=== PATIENT | male | born 1960 | race Caucasian/White ===

== ENCOUNTER → 2016-04-02 | Outpatient (REF) | payer MEDICARE ==
[~2016-04-02] MED LIST: BACL-67 PO; CITA20TA4 PO; FERR325T PO; OXYB5TAB PO; SIMV20TA2 PO; TIZA2TA PO; VITA10002 PO; VITA100066 PO; VITA500T88 PO
== END ==
LOC: M LAB REF 16:09
PROVIDERS: ATTEND Surgery
DX: L89.324 Pressure ulcer of left buttock, stage 4 (principal)

== ENCOUNTER → 2017-01-18 | Outpatient (REF) | payer MEDICARE ==
[~2017-01-18] MED LIST changes: -BACL-67 PO; +BACL1TAB9 PO; +FERR1TAB8 PO; -FERR325T PO
== END ==
LOC: M LAB REF 12:24
PROVIDERS: ATTEND Surgery
DX: L89.222 Pressure ulcer of left hip, stage 2 (principal)
CPT/HCPCS: 15271; 88304; Q4131

== ENCOUNTER → 2018-07-21 | Outpatient (REF) | payer MEDICARE ==
[~2018-07-21] MED LIST changes: -CITA20TA4 PO; +CITA20TA6 PO; +D3 H2000 PO; +ECOT81TA5 PO; +MYRB50TA PO
== END ==
LOC: M SMT 13:11
PROVIDERS: ATTEND Urology
DX: Z01.818 Encounter for other preprocedural examination (principal); R33.9 Retention of urine, unspecified

== ENCOUNTER 2018-07-26 07:55 | Day surgery (SDC) | payer MEDICARE ==
[~2018-07-26] VITALS: Ht 177.8 cm; Wt 89.4 kg
[~2018-07-26 07:55] MED LIST changes: +GENTAMICIN 80 MG in APPROPRIATE DILUENT 1 EA IV ONE; +LR 1,000 ML IV ONE; +VANCOMYCIN HCL 1,000 MG, VIAL MATE ADAPTER 1 EACH in D5W 250 ML IV ONE
[2018-07-26] MEDS ORDERED: MIDAZOLAM INJ 2 MG/2 ML VIAL (J2250) As Ordered ONE (08:09)
[2018-07-26] MEDS ORDERED: fentaNYL 100 MCG/2 ML INJECTION (J3010) As Ordered ONE (08:09)
[2018-07-26] MEDS ORDERED: dexameTHASONE 4 MG/ML 1ML VIAL (J1100) As Ordered ONE (08:10)
[2018-07-26] MEDS ORDERED: PROPOFOL 200 MG/20 ML VIAL As Ordered ONE (08:10)
[2018-07-26] MEDS ORDERED: ONDANSETRON 4MG/2ML VIAL (J2405) As Ordered ONE (08:10)
[2018-07-26] MEDS ORDERED: LIDOCAINE 2% INJ 100 MG/5 ML SDV (FOR ANES.) As Ordered ONE (08:10)
[2018-07-26] MEDS ORDERED: BUPIVACAINE HCL 0.25% 30 ML VIAL As Ordered ONE (09:50)
[2018-07-26] MEDS ORDERED: LIDOCAINE 1% SDV INJ 30 ML VIAL As Ordered ONE (09:50)
[2018-07-26] MEDS ORDERED: ACETAMINOPHEN 1000MG 100ML IV BTL (OFIRMEV) (J0131 PER 10MG) As Ordered ONE (11:02)
[2018-07-26] MEDS ORDERED: PERCOCET 5MG/325MG TAB PO PRN ×2 (12:30)
[2018-07-26 13:35] VITALS: BP 152/90
--- NOTE | 2018-07-27 08:05 | RO ---
DATE OF PROCEDURE: 07/26/2018 PREPROCEDURE DIAGNOSIS: Urinary retention. POSTPROCEDURE DIAGNOSIS: Urinary retention. PROCEDURE: Open cystotomy and suprapubic catheter placement, cystoscopy. SURGEON: Dr. Zach Watts. COMPUTER HARDWARE TECHNICIAN: None. ANESTHESIA: General. OPERATIVE INDICATIONS: This is a 58-year-old male with multiple sclerosis and urinary retention due to neurogenic bladder. He is managed with a chronic catheter placement through the urethra and decided that he would like to have a suprapubic catheter placed instead. DESCRIPTION OF PROCEDURE: The patient was brought to the operating room and general anesthesia was induced. Prophylactic antibiotics were infused. He was then placed in the supine position and prepped and draped in the usual sterile fashion. At this point, a flexible cystoscope was inserted through the meatus and advanced towards the bladder. A guidewire was then advanced through the cystoscope and into the bladder. The cystoscope was then removed and then a 16-Sen[place]e unalakleet tipped catheter was advanced over the wire into the bladder. The balloon was then filled with 10 mL of sterile water and then the wire was removed. The catheter was clamped off. At this point an approximately 4 cm suprapubic incision was made. We then dissected down through the subcutaneous tissue using Bovie electrocautery. The rectus fascia was opened using Bovie electrocautery. The bellies of the rectus were then bluntly spread. At this point, the bladder was then filled with approximately 100 mL of sterile saline using the Sommer catheter. A spinal needle was utilized to aspirate the area that appeared to be the bladder and we got clear fluid out indicating that we were, at this point dissected down towards the bladder. At this point, a 3-0 chromic pursestring stitch was placed at the dome of the bladder. The cystotomy was then made in the middle of the stitch and then the 20-[place]e catheter was inserted into the cystotomy. The balloon was filled with 7 mL of sterile water and then the chromic stitch was tied down around the catheter. At this point, we checked for hemostasis and it appeared excellent. We thoroughly irrigated the operative field. I then closed the rectus fascia using interrupted [id number] #1-0 PDS sutures. At this point, I irrigated the operative field again with saline. The subcutaneous tissues were then reapproximated with interrupted #3-0 Vicryl sutures. The skin was then closed with a running #4-0 Monocryl subcuticular stitch. This was done around the catheter. Last, a #3-0 Prolene suture was placed through the skin and around the catheter to help further secure the catheter to the skin. Dermabond was then applied to the incision as well as local anesthetic and this marked the conclusion of the procedure. The urethral catheter was then removed and the suprapubic catheter was connected to gravity drainage. The patient was then awakened from anesthesia and transported to the recovery room in stable condition. ESTIMATED BLOOD LOSS: 5 mL. COMPLICATIONS: None. SPECIMENS: None. PLAN: The patient will followup in the clinic in approximately 6 weeks for his first catheter change. KULWANT
== END 2018-07-26 14:00 | disposition home or self-care (01) ==
LOC: M SDC 07:55
PROVIDERS: ATTEND Urology
DX: R33.9 Retention of urine, unspecified (principal); G35 Multiple sclerosis; I10 Essential (primary) hypertension; E78.00 Pure hypercholesterolemia, unspecified; D64.9 Anemia, unspecified; F32.9 Major depressive disorder, single episode, unspecified; L89.300 Pressure ulcer of unspecified buttock, unstageable; K59.09 Other constipation; Z88.0 Allergy status to penicillin; Z88.2 Allergy status to sulfonamides; Z79.899 Other long term (current) drug therapy; Z99.3 Dependence on wheelchair

== ENCOUNTER → 2018-09-18 | Outpatient (REF) | payer MEDICARE ==
[~2018-09-18] MED LIST changes: +CYAN100049 PO; -GENTAMICIN 80 MG in APPROPRIATE DILUENT 1 EA IV ONE; -LR 1,000 ML IV ONE; -VANCOMYCIN HCL 1,000 MG, VIAL MATE ADAPTER 1 EACH in D5W 250 ML IV ONE; -VITA10002 PO
== END ==
LOC: M SMT 13:25
PROVIDERS: ATTEND Urology
DX: N31.9 Neuromuscular dysfunction of bladder, unspecified (principal)
CPT/HCPCS: 87088; 87186; G0463

== ENCOUNTER → 2023-08-15 12:35 | Inpatient (IN) | payer MEDICARE, SELFPAY ==
[2021-07-02 19:08] LABS: BASO # 0.1 10^3/uL (0.0-0.2); BASO % 0.3 % (0.0-1.0); EOS % 0.1 % (0.0-3.0); HEMATOCRIT 33.5 % (42.0-52.0); HEMOGLOBIN 10.5 g/dl (13.5-17.5); LYMPH # 0.8 10^3/uL (1.5-5.0); LYMPH % 3.7 % (24.0-44.0); MEAN CORPUSCULAR HEMOGLOBIN 21.9 pg (27.0-33.0); MEAN CORPUSCULAR HGB CONC 31.3 g/dl (32.0-36.5); MEAN CORPUSCULAR VOLUME 69.8 fl (80.0-96.0); MONO # 1.2 10^3/uL (0.0-0.8); MONO % 5.7 % (2.0-8.0); NEUTROPHILS # 18.8 10^3/uL (1.5-8.5); NEUTROPHILS % 89.3 % (36.0-66.0); PLATELET COUNT, AUTOMATED 482 10^3/uL (150-450); WHITE BLOOD COUNT 21.1 10^3/uL (4.0-10.0)
[2021-07-02 19:30] LABS: OSMOLALITY SERUM 272 MOSM/KG (280-301)
[2021-07-02 19:41] LABS: ALBUMIN 1.8 GM/DL (3.2-5.2); ALKALINE PHOSPHATASE 126 U/L (45-117); ALT/SGPT 51 U/L (12-78); AST/SGOT 48 U/L (7-37); BILIRUBIN,DIRECT 0.3 MG/DL (0.0-0.2); BILIRUBIN,TOTAL 0.6 MG/DL (0.2-1.0); BLOOD UREA NITROGEN 13 MG/DL (7-18); CALCIUM LEVEL 8.1 MG/DL (8.8-10.2); CARBON DIOXIDE LEVEL 26 MEQ/L (21-32); CHLORIDE LEVEL 98 MEQ/L (98-107); CREATININE FOR GFR 0.39 MG/DL (0.70-1.30); GLOMERULAR FILTRATION RATE > 60.0 (>49); GLUCOSE, FASTING 166 MG/DL (70-100); SODIUM LEVEL 131 MEQ/L (136-145); THYROID STIMULATING HORMONE 0.966 uIU/ML (0.358-3.740); TOTAL PROTEIN 7.2 GM/DL (6.4-8.2)
[2021-07-02] MEDS: ACETAMINOPHEN 325 MG TAB PO ONE (20:54)
[2021-07-02] MEDS: cefTRIAXone SOD 2 GM in D5W MINI-BAG PLUS 50 ML IV ONE (22:15)
[2021-07-03] MEDS: AZITHROMYCIN INJ 500 MG, VIAL MATE ADAPTER 1 EACH in NS 250 ML IV ONE (00:15)
[2021-07-03] MEDS: NS 1,000 ML IV ONE (00:15)
[2021-07-03] MEDS: VANCOMYCIN HCL 1,000 MG, VIAL MATE ADAPTER 1 EACH in NS 250 ML IV ONE ×2 (03:13→05:00)
[2021-07-03] MEDS: NS 1,000 ML IV SCH (03:14)
[2021-07-03] MEDS: CEFEPIME HCL 2 GM in D5W MINI-BAG PLUS 50 ML IV SCH (06:32)
[2021-07-03 07:29] LABS: BASO % 0.2 % (0.0-1.0); EOS % 0.1 % (0.0-3.0); HEMATOCRIT 31.7 % (42.0-52.0); HEMOGLOBIN 9.8 g/dl (13.5-17.5); LYMPH # 0.9 10^3/uL (1.5-5.0); LYMPH % 3.8 % (24.0-44.0); MEAN CORPUSCULAR HEMOGLOBIN 21.4 pg (27.0-33.0); MEAN CORPUSCULAR HGB CONC 30.9 g/dl (32.0-36.5); MEAN CORPUSCULAR VOLUME 69.2 fl (80.0-96.0); MONO # 1.2 10^3/uL (0.0-0.8); MONO % 5.4 % (2.0-8.0); NEUTROPHILS # 20.7 10^3/uL (1.5-8.5); NEUTROPHILS % 89.5 % (36.0-66.0); PLATELET COUNT, AUTOMATED 535 10^3/uL (150-450); RED BLOOD COUNT 4.58 10^6/uL (4.30-6.10); WHITE BLOOD COUNT 23.1 10^3/uL (4.0-10.0)
[2021-07-03 07:49] LABS: BLOOD UREA NITROGEN 17 MG/DL (7-18); CALCIUM LEVEL 7.9 MG/DL (8.8-10.2); CARBON DIOXIDE LEVEL 22 MEQ/L (21-32); CHLORIDE LEVEL 102 MEQ/L (98-107); CREATININE FOR GFR 0.41 MG/DL (0.70-1.30); GLOMERULAR FILTRATION RATE > 60.0 (>49); GLUCOSE, FASTING 201 MG/DL (70-100); POTASSIUM SERUM 3.8 MEQ/L (3.5-5.1); SODIUM LEVEL 134 MEQ/L (136-145)
[2021-07-03] MEDS: VANCOMYCIN HCL 1,000 MG, VIAL MATE ADAPTER 1 EACH in NS 250 ML IV SCH (08:34)
[2021-07-03] MEDS: ENOXAPARIN 40MG/0.4ML SYRINGE (J1650 PER 10MG) SC SCH (09:00)
[2021-07-03] MEDS: ASPIRIN 81MG ENTERIC TABLET PO SCH (09:00)
[2021-07-03] MEDS: CitaloPRAM (CeleXA) 20 MG TAB PO SCH (09:00)
[2021-07-03] MEDS: BACLOFEN 10 MG TAB PO SCH (09:00)
[2021-07-03] MEDS: PANTOPRAZOLE 40MG VIAL IV SCH (09:00)
[2021-07-03 13:32] LABS: FERRITIN 300 NG/ML (26-388)
[2021-07-03 15:00] VITALS: BP 141/74; TEMP 101.3; O2SAT 95
[2021-07-03] MEDS: BISACODYL 10MG SUPP PR SCH (15:50)
[2021-07-03 16:45] VITALS: TEMP 98.3
[2021-07-03 22:00] VITALS: BP 136/81; TEMP 98.8; O2SAT 94
[2021-07-04 02:00] VITALS: BP 116/65; TEMP 97.5; O2SAT 95
[2021-07-04 06:00] VITALS: BP 114/62; TEMP 98.6; O2SAT 95
[2021-07-04 07:19] LABS: BASO # 0.1 10^3/uL (0.0-0.2); BASO % 0.3 % (0.0-1.0); EOS # 0.1 10^3/uL (0.0-0.5); EOS % 0.7 % (0.0-3.0); HEMATOCRIT 27.9 % (42.0-52.0); HEMOGLOBIN 8.7 g/dl (13.5-17.5); LYMPH # 1.1 10^3/uL (1.5-5.0); LYMPH % 5.4 % (24.0-44.0); MEAN CORPUSCULAR HEMOGLOBIN 21.8 pg (27.0-33.0); MEAN CORPUSCULAR HGB CONC 31.2 g/dl (32.0-36.5); MEAN CORPUSCULAR VOLUME 69.8 fl (80.0-96.0); MONO # 1.2 10^3/uL (0.0-0.8); NEUTROPHILS # 16.9 10^3/uL (1.5-8.5); NEUTROPHILS % 86.1 % (36.0-66.0); PLATELET COUNT, AUTOMATED 507 10^3/uL (150-450); WHITE BLOOD COUNT 19.6 10^3/uL (4.0-10.0)
[2021-07-04 07:35] LABS: BLOOD UREA NITROGEN 11 MG/DL (7-18); CALCIUM LEVEL 7.6 MG/DL (8.8-10.2); CARBON DIOXIDE LEVEL 25 MEQ/L (21-32); CHLORIDE LEVEL 102 MEQ/L (98-107); CREATININE FOR GFR 0.36 MG/DL (0.70-1.30); GLOMERULAR FILTRATION RATE > 60.0 (>49); GLUCOSE, FASTING 249 MG/DL (70-100); POTASSIUM SERUM 3.4 MEQ/L (3.5-5.1); SODIUM LEVEL 134 MEQ/L (136-145)
[2021-07-04 10:00] VITALS: BP 129/72; TEMP 101.7; O2SAT 93
[2021-07-04] MEDS: POTASSIUM CHLORIDE 10MEQ SR TABLET PO SCH (10:56)
[2021-07-04] MEDS: ACETAMINOPHEN TAB 650MG DOSE (2X325MG) PO PRN (10:56)
[2021-07-04 13:08] VITALS: TEMP 99.2
[2021-07-04 14:00] VITALS: BP 125/88; TEMP 99.4; O2SAT 92
[2021-07-04 18:00] VITALS: TEMP 98.2; O2SAT 97
[2021-07-05] VITALS (14 sets, daily range): BP systolic 119–162; BP diastolic 66–93; TEMP 97.7–102; O2SAT 93–96
[2021-07-05 06:54] LABS: BASO # 0.1 10^3/uL (0.0-0.2); BASO % 0.4 % (0.0-1.0); EOS # 0.3 10^3/uL (0.0-0.5); EOS % 1.4 % (0.0-3.0); HEMATOCRIT 28.8 % (42.0-52.0); HEMOGLOBIN 9.1 g/dl (13.5-17.5); LYMPH # 1.2 10^3/uL (1.5-5.0); LYMPH % 6.1 % (24.0-44.0); MEAN CORPUSCULAR HEMOGLOBIN 22.2 pg (27.0-33.0); MEAN CORPUSCULAR HGB CONC 31.6 g/dl (32.0-36.5); MEAN CORPUSCULAR VOLUME 70.2 fl (80.0-96.0); MONO # 0.9 10^3/uL (0.0-0.8); MONO % 4.8 % (2.0-8.0); NEUTROPHILS # 16.7 10^3/uL (1.5-8.5); NEUTROPHILS % 85.6 % (36.0-66.0); PLATELET COUNT, AUTOMATED 528 10^3/uL (150-450); WHITE BLOOD COUNT 19.6 10^3/uL (4.0-10.0)
[2021-07-05 07:21] LABS: FERRITIN 332 NG/ML (26-388); IRON (FE) 13 UG/DL (65-175); PERCENT SATURATION 9.5 % (19.7-50.0); TOTAL IRON BINDING CAPACITY 137 UG/DL (250-450)
[2021-07-05 07:57] LABS: BLOOD UREA NITROGEN 8 MG/DL (7-18); CALCIUM LEVEL 7.7 MG/DL (8.8-10.2); CARBON DIOXIDE LEVEL 26 MEQ/L (21-32); CHLORIDE LEVEL 103 MEQ/L (98-107); CREATININE FOR GFR 0.41 MG/DL (0.70-1.30); GLOMERULAR FILTRATION RATE > 60.0 (>49); GLUCOSE, FASTING 200 MG/DL (70-100); POTASSIUM SERUM 3.6 MEQ/L (3.5-5.1); SODIUM LEVEL 138 MEQ/L (136-145)
[2021-07-05 09:23] LABS: HEMOGLOBIN A1c 7.8 %
[2021-07-05] MEDS: FUROSEMIDE 40MG/4ML VIAL IV ONE (15:45)
[2021-07-05] MEDS: ALBUTEROL SULFATE 2.5MG/0.5ML INH NEB SOLN NEB SCH (16:43)
[2021-07-06] VITALS (11 sets, daily range): BP systolic 131–155; BP diastolic 74–85; TEMP 98.7–100.8; O2SAT 91–98
[2021-07-06 07:17] LABS: BASO # 0.1 10^3/uL (0.0-0.2); BASO % 0.5 % (0.0-1.0); EOS # 0.3 10^3/uL (0.0-0.5); EOS % 1.5 % (0.0-3.0); HEMATOCRIT 28.3 % (42.0-52.0); HEMOGLOBIN 8.9 g/dl (13.5-17.5); LYMPH # 1.4 10^3/uL (1.5-5.0); LYMPH % 6.6 % (24.0-44.0); MEAN CORPUSCULAR HGB CONC 31.4 g/dl (32.0-36.5); MEAN CORPUSCULAR VOLUME 69.9 fl (80.0-96.0); MONO # 1.2 10^3/uL (0.0-0.8); MONO % 5.7 % (2.0-8.0); NEUTROPHILS # 17.3 10^3/uL (1.5-8.5); NEUTROPHILS % 82.7 % (36.0-66.0); PLATELET COUNT, AUTOMATED 536 10^3/uL (150-450); RED BLOOD COUNT 4.05 10^6/uL (4.30-6.10); WHITE BLOOD COUNT 20.9 10^3/uL (4.0-10.0)
[2021-07-06 07:40] LABS: BLOOD UREA NITROGEN 10 MG/DL (7-18); CALCIUM LEVEL 7.8 MG/DL (8.8-10.2); CARBON DIOXIDE LEVEL 27 MEQ/L (21-32); CHLORIDE LEVEL 103 MEQ/L (98-107); CREATININE FOR GFR 0.27 MG/DL (0.70-1.30); GLOMERULAR FILTRATION RATE > 60.0 (>49); GLUCOSE, FASTING 200 MG/DL (70-100); SODIUM LEVEL 134 MEQ/L (136-145); VANCOMYCIN LEVEL TROUGH 15.4 UG/ML (10.0-20.0)
[2021-07-06 09:46] LABS: FOLATE 2.6 NG/ML (>5.4); VITAMIN B12 LEVEL 467 PG/ML (247-911)
[2021-07-06] MEDS: FUROSEMIDE 40MG/4ML VIAL IV ONE (14:49)
[2021-07-07] VITALS (7 sets, daily range): BP systolic 124–148; BP diastolic 71–78; TEMP 96.8–99.6; O2SAT 95–97
[2021-07-07 06:53] LABS: BASO # 0.1 10^3/uL (0.0-0.2); BASO % 0.4 % (0.0-1.0); EOS # 0.5 10^3/uL (0.0-0.5); EOS % 2.1 % (0.0-3.0); HEMATOCRIT 29.4 % (42.0-52.0); LYMPH # 1.7 10^3/uL (1.5-5.0); LYMPH % 7.8 % (24.0-44.0); MEAN CORPUSCULAR HEMOGLOBIN 21.5 pg (27.0-33.0); MEAN CORPUSCULAR HGB CONC 30.6 g/dl (32.0-36.5); MEAN CORPUSCULAR VOLUME 70.2 fl (80.0-96.0); MONO # 1.4 10^3/uL (0.0-0.8); MONO % 6.5 % (2.0-8.0); NEUTROPHILS % 78.8 % (36.0-66.0); PLATELET COUNT, AUTOMATED 579 10^3/uL (150-450); RED BLOOD COUNT 4.19 10^6/uL (4.30-6.10); WHITE BLOOD COUNT 21.6 10^3/uL (4.0-10.0)
[2021-07-07 07:08] LABS: BLOOD UREA NITROGEN 13 MG/DL (7-18); CALCIUM LEVEL 7.9 MG/DL (8.8-10.2); CARBON DIOXIDE LEVEL 28 MEQ/L (21-32); CHLORIDE LEVEL 101 MEQ/L (98-107); GLOMERULAR FILTRATION RATE > 60.0 (>49); GLUCOSE, FASTING 210 MG/DL (70-100); POTASSIUM SERUM 4.3 MEQ/L (3.5-5.1); SODIUM LEVEL 134 MEQ/L (136-145)
[2021-07-07] MEDS: DOXYCYCLINE HYCLATE 100MG TABLET PO SCH (09:45)
[2021-07-08] VITALS (14 sets, daily range): BP systolic 119–171; BP diastolic 66–92; TEMP 97.1–102.4; O2SAT 90–100
[2021-07-08 06:39] LABS: HEMATOCRIT 29.3 % (42.0-52.0); HEMOGLOBIN 9.1 g/dl (13.5-17.5); MEAN CORPUSCULAR HEMOGLOBIN 21.9 pg (27.0-33.0); MEAN CORPUSCULAR HGB CONC 31.1 g/dl (32.0-36.5); MEAN CORPUSCULAR VOLUME 70.4 fl (80.0-96.0); PLATELET COUNT, AUTOMATED 610 10^3/uL (150-450); RED BLOOD COUNT 4.16 10^6/uL (4.30-6.10); WHITE BLOOD COUNT 19.9 10^3/uL (4.0-10.0)
[2021-07-08 06:58] LABS: BLOOD UREA NITROGEN 12 MG/DL (7-18); CALCIUM LEVEL 8.3 MG/DL (8.8-10.2); CARBON DIOXIDE LEVEL 27 MEQ/L (21-32); CHLORIDE LEVEL 100 MEQ/L (98-107); CREATININE FOR GFR 0.36 MG/DL (0.70-1.30); GLOMERULAR FILTRATION RATE > 60.0 (>49); GLUCOSE, FASTING 219 MG/DL (70-100); POTASSIUM SERUM 4.9 MEQ/L (3.5-5.1); SODIUM LEVEL 132 MEQ/L (136-145)
[2021-07-08 07:49] LABS: ANISOCYTOSIS 2+; EOSINOPHILS 2 % (0-3); LYMPHOCYTES 7 % (16-44); METAMYELOCYTES 1 % (0-0); MICROCYTOSIS 2+; MONOCYTES 8 % (0-5); NEUTROPHILS 82 % (28-66); PLATELET ESTIMATE INCREASED (NORMAL)
[2021-07-08 07:50] LABS: OVALOCYTES 1+
[2021-07-08] MEDS: FUROSEMIDE 40MG/4ML VIAL IV ONE (17:45)
[2021-07-08 17:53] LABS: ABG BASE EXCESS 1.4 (-2.0-2.0); ABG HCO3 24.2 MEQ/L (22.0-26.0); ABG PARTIAL PRESSURE CO2 31.8 mmHg (35.0-45.0); ABG PARTIAL PRESSURE O2 123.9 mmHg (75.0-100.0); ABG STANDARD HCO3 25.8 MEQ/L (22.0-26.0); ABG TOTAL CO2 25.2 MEQ/L (23.0-31.0); ABG pH (ARTERIAL) 7.499 UNITS (7.350-7.450)
[2021-07-08 17:57] LABS: BASO # 0.1 10^3/uL (0.0-0.2); BASO % 0.5 % (0.0-1.0); EOS # 0.2 10^3/uL (0.0-0.5); HEMATOCRIT 32.4 % (42.0-52.0); HEMOGLOBIN 9.9 g/dl (13.5-17.5); LYMPH # 1.4 10^3/uL (1.5-5.0); LYMPH % 6.2 % (24.0-44.0); MEAN CORPUSCULAR HEMOGLOBIN 21.7 pg (27.0-33.0); MEAN CORPUSCULAR HGB CONC 30.6 g/dl (32.0-36.5); MEAN CORPUSCULAR VOLUME 71.1 fl (80.0-96.0); MONO # 0.5 10^3/uL (0.0-0.8); MONO % 2.1 % (2.0-8.0); NEUTROPHILS # 18.8 10^3/uL (1.5-8.5); NEUTROPHILS % 85.3 % (36.0-66.0); RED BLOOD COUNT 4.56 10^6/uL (4.30-6.10); WHITE BLOOD COUNT 22.1 10^3/uL (4.0-10.0)
[2021-07-08 18:11] LABS: PLATELET COUNT, AUTOMATED 723 10^3/uL (150-450)
[2021-07-08 18:18] LABS: ALBUMIN 1.6 GM/DL (3.2-5.2); ALKALINE PHOSPHATASE 131 U/L (45-117); ALT/SGPT 37 U/L (12-78); AST/SGOT 20 U/L (7-37); BILIRUBIN,TOTAL 0.3 MG/DL (0.2-1.0); BLOOD UREA NITROGEN 14 MG/DL (7-18); CALCIUM LEVEL 8.6 MG/DL (8.8-10.2); CARBON DIOXIDE LEVEL 24 MEQ/L (21-32); CHLORIDE LEVEL 97 MEQ/L (98-107); CREATININE FOR GFR 0.53 MG/DL (0.70-1.30); GLOMERULAR FILTRATION RATE > 60.0 (>49); GLUCOSE, FASTING 232 MG/DL (70-100); LDH LACTATE DEHYDROGENASE 182 U/L (87-241); MAGNESIUM LEVEL 1.8 MG/DL (1.8-2.4); POTASSIUM SERUM 4.9 MEQ/L (3.5-5.1); SODIUM LEVEL 132 MEQ/L (136-145); TOTAL PROTEIN 6.9 GM/DL (6.4-8.2)
[2021-07-08 18:20] LABS: CK-MB VALUE MASS < 1.0 NG/ML (<3.6); CPK CREATINE PHOSPHOKINASE 20 U/L (39-308)
[2021-07-09] VITALS (21 sets, daily range): BP systolic 116–135; BP diastolic 59–69; TEMP 97–99.2; O2SAT 87–100
[2021-07-09 03:59] LABS: BASO # 0.1 10^3/uL (0.0-0.2); BASO % 0.5 % (0.0-1.0); EOS # 0.3 10^3/uL (0.0-0.5); EOS % 1.6 % (0.0-3.0); HEMATOCRIT 29.5 % (42.0-52.0); HEMOGLOBIN 9.2 g/dl (13.5-17.5); LYMPH # 1.6 10^3/uL (1.5-5.0); LYMPH % 8.7 % (24.0-44.0); MEAN CORPUSCULAR HGB CONC 31.2 g/dl (32.0-36.5); MEAN CORPUSCULAR VOLUME 70.6 fl (80.0-96.0); MONO # 1.3 10^3/uL (0.0-0.8); MONO % 6.8 % (2.0-8.0); NEUTROPHILS # 14.5 10^3/uL (1.5-8.5); NEUTROPHILS % 78.3 % (36.0-66.0); RED BLOOD COUNT 4.18 10^6/uL (4.30-6.10); WHITE BLOOD COUNT 18.6 10^3/uL (4.0-10.0)
[2021-07-09 04:02] LABS: PLATELET COUNT, AUTOMATED 593 10^3/uL (150-450)
[2021-07-09 04:22] LABS: BLOOD UREA NITROGEN 14 MG/DL (7-18); CALCIUM LEVEL 8.3 MG/DL (8.8-10.2); CARBON DIOXIDE LEVEL 29 MEQ/L (21-32); CHLORIDE LEVEL 100 MEQ/L (98-107); CREATININE FOR GFR 0.41 MG/DL (0.70-1.30); GLOMERULAR FILTRATION RATE > 60.0 (>49); GLUCOSE, FASTING 222 MG/DL (70-100); POTASSIUM SERUM 4.2 MEQ/L (3.5-5.1); SODIUM LEVEL 134 MEQ/L (136-145)
[2021-07-09] MEDS: metroNIDAZOLE 500 MG in IV 1 EA IV SCH (12:25)
[2021-07-10] VITALS (10 sets, daily range): BP systolic 113–122; BP diastolic 57–69; TEMP 97–103.5; O2SAT 92–98
[2021-07-10 04:45] LABS: BLOOD UREA NITROGEN 14 MG/DL (7-18); CALCIUM LEVEL 7.8 MG/DL (8.8-10.2); CARBON DIOXIDE LEVEL 28 MEQ/L (21-32); CHLORIDE LEVEL 100 MEQ/L (98-107); CREATININE FOR GFR 0.39 MG/DL (0.70-1.30); GLOMERULAR FILTRATION RATE > 60.0 (>49); GLUCOSE, FASTING 207 MG/DL (70-100); SODIUM LEVEL 133 MEQ/L (136-145)
[2021-07-10 07:50] LABS: MAGNESIUM LEVEL 1.8 MG/DL (1.8-2.4)
[2021-07-10 07:54] LABS: BASO % 0.2 % (0.0-1.0); EOS # 0.2 10^3/uL (0.0-0.5); EOS % 1.2 % (0.0-3.0); HEMATOCRIT 27.9 % (42.0-52.0); HEMOGLOBIN 8.4 g/dl (13.5-17.5); LYMPH # 1.5 10^3/uL (1.5-5.0); LYMPH % 10.1 % (24.0-44.0); MEAN CORPUSCULAR HEMOGLOBIN 21.4 pg (27.0-33.0); MEAN CORPUSCULAR HGB CONC 30.1 g/dl (32.0-36.5); MONO # 1.3 10^3/uL (0.0-0.8); MONO % 8.7 % (2.0-8.0); NEUTROPHILS # 11.5 10^3/uL (1.5-8.5); NEUTROPHILS % 77.1 % (36.0-66.0); PLATELET COUNT, AUTOMATED 439 10^3/uL (150-450); RED BLOOD COUNT 3.93 10^6/uL (4.30-6.10); WHITE BLOOD COUNT 14.9 10^3/uL (4.0-10.0)
[2021-07-11] VITALS (19 sets, daily range): BP systolic 120–133; BP diastolic 62–67; TEMP 97–98.6; O2SAT 95–100
[2021-07-11 06:19] LABS: BASO # 0.1 10^3/uL (0.0-0.2); BASO % 0.4 % (0.0-1.0); EOS # 0.2 10^3/uL (0.0-0.5); EOS % 1.6 % (0.0-3.0); HEMATOCRIT 28.4 % (42.0-52.0); HEMOGLOBIN 8.6 g/dl (13.5-17.5); LYMPH % 7.2 % (24.0-44.0); MEAN CORPUSCULAR HEMOGLOBIN 21.7 pg (27.0-33.0); MEAN CORPUSCULAR HGB CONC 30.3 g/dl (32.0-36.5); MEAN CORPUSCULAR VOLUME 71.5 fl (80.0-96.0); NEUTROPHILS # 11.6 10^3/uL (1.5-8.5); NEUTROPHILS % 81.6 % (36.0-66.0); PLATELET COUNT, AUTOMATED 465 10^3/uL (150-450); RED BLOOD COUNT 3.97 10^6/uL (4.30-6.10); WHITE BLOOD COUNT 14.2 10^3/uL (4.0-10.0)
[2021-07-11 06:37] LABS: BLOOD UREA NITROGEN 11 MG/DL (7-18); CARBON DIOXIDE LEVEL 28 MEQ/L (21-32); CHLORIDE LEVEL 103 MEQ/L (98-107); CREATININE FOR GFR 0.31 MG/DL (0.70-1.30); GLOMERULAR FILTRATION RATE > 60.0 (>49); GLUCOSE, FASTING 196 MG/DL (70-100); MAGNESIUM LEVEL 1.8 MG/DL (1.8-2.4); POTASSIUM SERUM 4.2 MEQ/L (3.5-5.1); SODIUM LEVEL 134 MEQ/L (136-145)
[2021-07-11] MEDS: SODIUM CHLORIDE 0.9% INJ 10 ML SYR IV SCH (18:16)
[2021-07-12] VITALS (24 sets, daily range): BP systolic 130–147; BP diastolic 64–75; TEMP 97.6–98.9; O2SAT 94–98
[2021-07-12 06:10] LABS: BASO # 0.1 10^3/uL (0.0-0.2); BASO % 0.3 % (0.0-1.0); EOS # 0.2 10^3/uL (0.0-0.5); EOS % 1.3 % (0.0-3.0); HEMATOCRIT 27.7 % (42.0-52.0); HEMOGLOBIN 8.5 g/dl (13.5-17.5); LYMPH # 1.6 10^3/uL (1.5-5.0); MEAN CORPUSCULAR HEMOGLOBIN 21.7 pg (27.0-33.0); MEAN CORPUSCULAR HGB CONC 30.7 g/dl (32.0-36.5); MEAN CORPUSCULAR VOLUME 70.8 fl (80.0-96.0); MONO # 1.2 10^3/uL (0.0-0.8); MONO % 7.7 % (2.0-8.0); NEUTROPHILS # 12.2 10^3/uL (1.5-8.5); PLATELET COUNT, AUTOMATED 502 10^3/uL (150-450); RED BLOOD COUNT 3.91 10^6/uL (4.30-6.10); WHITE BLOOD COUNT 15.4 10^3/uL (4.0-10.0)
[2021-07-12 06:29] LABS: BLOOD UREA NITROGEN 10 MG/DL (7-18); CALCIUM LEVEL 8.3 MG/DL (8.8-10.2); CARBON DIOXIDE LEVEL 25 MEQ/L (21-32); CHLORIDE LEVEL 103 MEQ/L (98-107); CREATININE FOR GFR 0.27 MG/DL (0.70-1.30); GLOMERULAR FILTRATION RATE > 60.0 (>49); GLUCOSE, FASTING 187 MG/DL (70-100); MAGNESIUM LEVEL 1.8 MG/DL (1.8-2.4); POTASSIUM SERUM 4.3 MEQ/L (3.5-5.1); SODIUM LEVEL 134 MEQ/L (136-145)
[2021-07-12] MEDS: SODIUM CHLORIDE 0.9% INJ 10 ML SYR IV PRN (09:40)
[2021-07-13] VITALS (11 sets, daily range): BP systolic 116–128; BP diastolic 61–75; TEMP 96.1–99.4; O2SAT 92–98
[2021-07-13 07:23] LABS: BASO # 0.1 10^3/uL (0.0-0.2); BASO % 0.3 % (0.0-1.0); EOS # 0.2 10^3/uL (0.0-0.5); EOS % 1.1 % (0.0-3.0); HEMATOCRIT 28.9 % (42.0-52.0); HEMOGLOBIN 8.9 g/dl (13.5-17.5); LYMPH # 1.7 10^3/uL (1.5-5.0); LYMPH % 10.9 % (24.0-44.0); MEAN CORPUSCULAR HEMOGLOBIN 21.8 pg (27.0-33.0); MEAN CORPUSCULAR HGB CONC 30.8 g/dl (32.0-36.5); MEAN CORPUSCULAR VOLUME 70.8 fl (80.0-96.0); MONO % 6.1 % (2.0-8.0); NEUTROPHILS # 12.8 10^3/uL (1.5-8.5); NEUTROPHILS % 79.7 % (36.0-66.0); PLATELET COUNT, AUTOMATED 535 10^3/uL (150-450); RED BLOOD COUNT 4.08 10^6/uL (4.30-6.10)
[2021-07-13 07:45] LABS: BLOOD UREA NITROGEN 7 MG/DL (7-18); CALCIUM LEVEL 8.1 MG/DL (8.8-10.2); CARBON DIOXIDE LEVEL 27 MEQ/L (21-32); CHLORIDE LEVEL 101 MEQ/L (98-107); GLOMERULAR FILTRATION RATE > 60.0 (>49); GLUCOSE, FASTING 195 MG/DL (70-100); MAGNESIUM LEVEL 1.9 MG/DL (1.8-2.4); POTASSIUM SERUM 4.3 MEQ/L (3.5-5.1); SODIUM LEVEL 131 MEQ/L (136-145)
[2021-07-13] MEDS: BISACODYL 5MG TAB PO SCH (08:29)
[2021-07-13] MEDS: ENOXAPARIN 100MG/1ML SYRINGE (J1650 PER 10MG) SC SCH (23:15)
[2021-07-13 23:34] LABS: CREATININE FOR GFR 0.44 MG/DL (0.70-1.30); GLOMERULAR FILTRATION RATE > 60.0 (>49)
[2021-07-14 04:26] LABS: BASO # 0.1 10^3/uL (0.0-0.2); BASO % 0.4 % (0.0-1.0); EOS # 0.2 10^3/uL (0.0-0.5); EOS % 1.5 % (0.0-3.0); HEMATOCRIT 29.4 % (42.0-52.0); HEMOGLOBIN 9.1 g/dl (13.5-17.5); LYMPH # 1.9 10^3/uL (1.5-5.0); LYMPH % 12.5 % (24.0-44.0); MEAN CORPUSCULAR HEMOGLOBIN 21.7 pg (27.0-33.0); MONO # 0.9 10^3/uL (0.0-0.8); MONO % 5.7 % (2.0-8.0); NEUTROPHILS # 11.8 10^3/uL (1.5-8.5); NEUTROPHILS % 77.5 % (36.0-66.0); PLATELET COUNT, AUTOMATED 545 10^3/uL (150-450); WHITE BLOOD COUNT 15.2 10^3/uL (4.0-10.0)
[2021-07-14 04:47] LABS: BLOOD UREA NITROGEN 10 MG/DL (7-18); CALCIUM LEVEL 8.1 MG/DL (8.8-10.2); CARBON DIOXIDE LEVEL 25 MEQ/L (21-32); CHLORIDE LEVEL 104 MEQ/L (98-107); CREATININE FOR GFR 0.33 MG/DL (0.70-1.30); GLOMERULAR FILTRATION RATE > 60.0 (>49); GLUCOSE, FASTING 202 MG/DL (70-100); POTASSIUM SERUM 4.4 MEQ/L (3.5-5.1); SODIUM LEVEL 135 MEQ/L (136-145)
[2021-07-14 07:40] VITALS: BP 124/68; TEMP 97; O2SAT 96
[2021-07-14 08:24] LABS: C REACTIVE PROTEIN QUANTITATIV 9.16 MG/DL (0.00-0.30)
[2021-07-14 11:55] VITALS: BP 115/58; TEMP 96.8; O2SAT 94
[2021-07-14 12:56] LABS: INR 1.19; PROTHROMBIN TIME 15.5 SECONDS (12.7-14.5)
[2021-07-14 12:57] LABS: PARTIAL THROMBOPLASTIN TIME 44.4 SECONDS (25.9-37.0)
[2021-07-14 16:30] VITALS: BP 123/75; TEMP 97.5; O2SAT 95
[2021-07-15 02:00] VITALS: BP 122/68; TEMP 97.6; O2SAT 98
[2021-07-15 06:00] VITALS: BP 127/71; TEMP 97.6; O2SAT 98
[2021-07-15 06:58] LABS: BASO # 0.1 10^3/uL (0.0-0.2); BASO % 0.6 % (0.0-1.0); EOS # 0.2 10^3/uL (0.0-0.5); EOS % 1.9 % (0.0-3.0); HEMATOCRIT 29.5 % (42.0-52.0); HEMOGLOBIN 8.9 g/dl (13.5-17.5); LYMPH # 1.7 10^3/uL (1.5-5.0); LYMPH % 15.4 % (24.0-44.0); MEAN CORPUSCULAR HEMOGLOBIN 21.3 pg (27.0-33.0); MEAN CORPUSCULAR HGB CONC 30.2 g/dl (32.0-36.5); MEAN CORPUSCULAR VOLUME 70.6 fl (80.0-96.0); MONO # 0.7 10^3/uL (0.0-0.8); MONO % 6.1 % (2.0-8.0); NEUTROPHILS # 8.3 10^3/uL (1.5-8.5); NEUTROPHILS % 73.2 % (36.0-66.0); PLATELET COUNT, AUTOMATED 547 10^3/uL (150-450); RED BLOOD COUNT 4.18 10^6/uL (4.30-6.10); WHITE BLOOD COUNT 11.3 10^3/uL (4.0-10.0)
[2021-07-15 07:16] LABS: BLOOD UREA NITROGEN 12 MG/DL (7-18); CALCIUM LEVEL 8.6 MG/DL (8.8-10.2); CARBON DIOXIDE LEVEL 25 MEQ/L (21-32); CHLORIDE LEVEL 106 MEQ/L (98-107); CREATININE FOR GFR 0.22 MG/DL (0.70-1.30); GLOMERULAR FILTRATION RATE > 60.0 (>49); GLUCOSE, FASTING 175 MG/DL (70-100); MAGNESIUM LEVEL 1.9 MG/DL (1.8-2.4); POTASSIUM SERUM 4.1 MEQ/L (3.5-5.1); SODIUM LEVEL 136 MEQ/L (136-145)
[2021-07-15 15:18] VITALS: TEMP 98.6; O2SAT 98
[2021-07-15 15:20] VITALS: BP 126/67; O2SAT 97
[2021-07-15 22:00] VITALS: BP 121/66; TEMP 98.1; O2SAT 98
[2021-07-16 05:51] LABS: BASO # 0.1 10^3/uL (0.0-0.2); BASO % 0.4 % (0.0-1.0); EOS # 0.2 10^3/uL (0.0-0.5); EOS % 1.8 % (0.0-3.0); HEMATOCRIT 28.6 % (42.0-52.0); HEMOGLOBIN 8.7 g/dl (13.5-17.5); LYMPH # 1.7 10^3/uL (1.5-5.0); MEAN CORPUSCULAR HEMOGLOBIN 21.6 pg (27.0-33.0); MEAN CORPUSCULAR HGB CONC 30.4 g/dl (32.0-36.5); MEAN CORPUSCULAR VOLUME 71.1 fl (80.0-96.0); MONO # 0.7 10^3/uL (0.0-0.8); MONO % 5.7 % (2.0-8.0); NEUTROPHILS # 8.5 10^3/uL (1.5-8.5); NEUTROPHILS % 74.2 % (36.0-66.0); PLATELET COUNT, AUTOMATED 528 10^3/uL (150-450); RED BLOOD COUNT 4.02 10^6/uL (4.30-6.10); WHITE BLOOD COUNT 11.4 10^3/uL (4.0-10.0)
[2021-07-16 06:13] LABS: ERYTHROCYTE SEDIMENTATION RATE 86 mm/hr (0-20)
[2021-07-16 06:23] LABS: BLOOD UREA NITROGEN 10 MG/DL (7-18); C REACTIVE PROTEIN QUANTITATIV 4.06 MG/DL (0.00-0.30); CALCIUM LEVEL 7.8 MG/DL (8.8-10.2); CARBON DIOXIDE LEVEL 27 MEQ/L (21-32); CHLORIDE LEVEL 106 MEQ/L (98-107); CREATININE FOR GFR 0.36 MG/DL (0.70-1.30); GLOMERULAR FILTRATION RATE > 60.0 (>49); GLUCOSE, FASTING 175 MG/DL (70-100); MAGNESIUM LEVEL 1.8 MG/DL (1.8-2.4); POTASSIUM SERUM 4.3 MEQ/L (3.5-5.1); SODIUM LEVEL 136 MEQ/L (136-145)
[2021-07-16 14:00] VITALS: BP 114/64; TEMP 98.7; O2SAT 97
[2021-07-16 22:00] VITALS: BP 118/65; TEMP 97.8; O2SAT 96
[2021-07-17 08:37] LABS: BASO # 0.1 10^3/uL (0.0-0.2); BASO % 0.7 % (0.0-1.0); EOS # 0.1 10^3/uL (0.0-0.5); EOS % 1.5 % (0.0-3.0); HEMATOCRIT 29.8 % (42.0-52.0); LYMPH # 1.6 10^3/uL (1.5-5.0); LYMPH % 17.1 % (24.0-44.0); MEAN CORPUSCULAR HGB CONC 30.2 g/dl (32.0-36.5); MEAN CORPUSCULAR VOLUME 72.9 fl (80.0-96.0); MONO # 0.6 10^3/uL (0.0-0.8); MONO % 6.5 % (2.0-8.0); NEUTROPHILS # 6.6 10^3/uL (1.5-8.5); NEUTROPHILS % 71.7 % (36.0-66.0); PLATELET COUNT, AUTOMATED 549 10^3/uL (150-450); RED BLOOD COUNT 4.09 10^6/uL (4.30-6.10); WHITE BLOOD COUNT 9.2 10^3/uL (4.0-10.0)
[2021-07-17 09:02] LABS: BLOOD UREA NITROGEN 11 MG/DL (7-18); CALCIUM LEVEL 8.5 MG/DL (8.8-10.2); CARBON DIOXIDE LEVEL 26 MEQ/L (21-32); CHLORIDE LEVEL 105 MEQ/L (98-107); CREATININE FOR GFR 0.25 MG/DL (0.70-1.30); GLOMERULAR FILTRATION RATE > 60.0 (>49); GLUCOSE, FASTING 164 MG/DL (70-100); MAGNESIUM LEVEL 1.9 MG/DL (1.8-2.4); POTASSIUM SERUM 4.5 MEQ/L (3.5-5.1); SODIUM LEVEL 137 MEQ/L (136-145)
[2021-07-17] MEDS: PANTOPRAZOLE 40MG TAB (PROTONIX) PO SCH (09:31)
[2021-07-17] MEDS: APIXABAN 5 MG TAB (ELIQUIS) PO SCH (11:25)
[2021-07-17 14:34] VITALS: BP 130/73; TEMP 98.3; O2SAT 97
[2021-07-17 14:36] VITALS: BP 125/73
[2021-07-17 22:00] VITALS: BP 133/74; TEMP 98.4; O2SAT 98
[2021-07-18 06:00] VITALS: BP 129/69; TEMP 96.6; O2SAT 96
[2021-07-18 07:00] LABS: BASO # 0.1 10^3/uL (0.0-0.2); BASO % 0.6 % (0.0-1.0); EOS # 0.2 10^3/uL (0.0-0.5); EOS % 2.1 % (0.0-3.0); HEMATOCRIT 30.5 % (42.0-52.0); HEMOGLOBIN 9.1 g/dl (13.5-17.5); LYMPH # 1.5 10^3/uL (1.5-5.0); LYMPH % 16.2 % (24.0-44.0); MEAN CORPUSCULAR HGB CONC 29.8 g/dl (32.0-36.5); MEAN CORPUSCULAR VOLUME 73.7 fl (80.0-96.0); MONO # 0.6 10^3/uL (0.0-0.8); MONO % 7.2 % (2.0-8.0); NEUTROPHILS # 6.4 10^3/uL (1.5-8.5); NEUTROPHILS % 71.8 % (36.0-66.0); PLATELET COUNT, AUTOMATED 536 10^3/uL (150-450); RED BLOOD COUNT 4.14 10^6/uL (4.30-6.10); WHITE BLOOD COUNT 8.9 10^3/uL (4.0-10.0)
[2021-07-18 07:28] LABS: BLOOD UREA NITROGEN 9 MG/DL (7-18); CALCIUM LEVEL 8.5 MG/DL (8.8-10.2); CARBON DIOXIDE LEVEL 26 MEQ/L (21-32); CHLORIDE LEVEL 107 MEQ/L (98-107); CREATININE FOR GFR 0.26 MG/DL (0.70-1.30); GLOMERULAR FILTRATION RATE > 60.0 (>49); GLUCOSE, FASTING 171 MG/DL (70-100); POTASSIUM SERUM 4.3 MEQ/L (3.5-5.1); SODIUM LEVEL 136 MEQ/L (136-145)
[2021-07-18 08:00] VITALS: BP 114/64; TEMP 98.4
[2021-07-18 14:00] VITALS: BP 119/65; TEMP 98.4; O2SAT 97
[2021-07-18 22:00] VITALS: BP 121/67; TEMP 96.4; O2SAT 96
[2021-07-19 06:00] VITALS: BP 124/68; TEMP 96.6; O2SAT 94
[2021-07-19 06:33] LABS: BASO # 0.1 10^3/uL (0.0-0.2); BASO % 0.6 % (0.0-1.0); EOS # 0.2 10^3/uL (0.0-0.5); EOS % 2.4 % (0.0-3.0); HEMATOCRIT 30.4 % (42.0-52.0); HEMOGLOBIN 9.1 g/dl (13.5-17.5); LYMPH # 1.5 10^3/uL (1.5-5.0); LYMPH % 14.7 % (24.0-44.0); MEAN CORPUSCULAR HGB CONC 29.9 g/dl (32.0-36.5); MEAN CORPUSCULAR VOLUME 73.6 fl (80.0-96.0); MONO # 0.7 10^3/uL (0.0-0.8); MONO % 7.1 % (2.0-8.0); NEUTROPHILS # 7.4 10^3/uL (1.5-8.5); NEUTROPHILS % 73.9 % (36.0-66.0); PLATELET COUNT, AUTOMATED 533 10^3/uL (150-450); RED BLOOD COUNT 4.13 10^6/uL (4.30-6.10)
[2021-07-19 06:56] LABS: BLOOD UREA NITROGEN 9 MG/DL (7-18); CALCIUM LEVEL 8.3 MG/DL (8.8-10.2); CARBON DIOXIDE LEVEL 28 MEQ/L (21-32); CHLORIDE LEVEL 105 MEQ/L (98-107); GLOMERULAR FILTRATION RATE > 60.0 (>49); GLUCOSE, FASTING 169 MG/DL (70-100); POTASSIUM SERUM 4.2 MEQ/L (3.5-5.1); SODIUM LEVEL 136 MEQ/L (136-145)
[2021-07-19 15:00] VITALS: BP 124/69; TEMP 100.7; O2SAT 97
[2021-07-19 22:00] VITALS: TEMP 96.6; O2SAT 96
[2021-07-20 06:00] VITALS: BP 123/72; TEMP 96.9; O2SAT 97
[2021-07-20 06:36] LABS: BASO # 0.1 10^3/uL (0.0-0.2); BASO % 0.7 % (0.0-1.0); EOS # 0.2 10^3/uL (0.0-0.5); EOS % 2.2 % (0.0-3.0); HEMATOCRIT 32.7 % (42.0-52.0); HEMOGLOBIN 9.7 g/dl (13.5-17.5); LYMPH # 1.8 10^3/uL (1.5-5.0); LYMPH % 16.3 % (24.0-44.0); MEAN CORPUSCULAR HEMOGLOBIN 21.8 pg (27.0-33.0); MEAN CORPUSCULAR HGB CONC 29.7 g/dl (32.0-36.5); MEAN CORPUSCULAR VOLUME 73.5 fl (80.0-96.0); MONO # 0.8 10^3/uL (0.0-0.8); MONO % 6.8 % (2.0-8.0); NEUTROPHILS % 72.7 % (36.0-66.0); PLATELET COUNT, AUTOMATED 569 10^3/uL (150-450); RED BLOOD COUNT 4.45 10^6/uL (4.30-6.10)
[2021-07-20 07:04] LABS: BLOOD UREA NITROGEN 10 MG/DL (7-18); C REACTIVE PROTEIN QUANTITATIV 2.44 MG/DL (0.00-0.30); CALCIUM LEVEL 8.5 MG/DL (8.8-10.2); CARBON DIOXIDE LEVEL 29 MEQ/L (21-32); CHLORIDE LEVEL 105 MEQ/L (98-107); CREATININE FOR GFR 0.39 MG/DL (0.70-1.30); GLOMERULAR FILTRATION RATE > 60.0 (>49); GLUCOSE, FASTING 173 MG/DL (70-100); POTASSIUM SERUM 4.5 MEQ/L (3.5-5.1); SODIUM LEVEL 137 MEQ/L (136-145)
[2021-07-20] MEDS: GASTROGRAFIN SOLUTION 30ML PO SCH (13:30)
[2021-07-20 14:00] VITALS: BP 125/72; TEMP 97.9; O2SAT 96
[2021-07-20 22:00] VITALS: BP 115/73; TEMP 97.4; O2SAT 96
[2021-07-20] MEDS: APIXABAN 5 MG TAB (ELIQUIS) PO SCH (22:01)
[2021-07-21 06:00] VITALS: BP 135/81; TEMP 97.5; O2SAT 96
[2021-07-21 06:37] LABS: BASO # 0.1 10^3/uL (0.0-0.2); BASO % 0.6 % (0.0-1.0); EOS # 0.3 10^3/uL (0.0-0.5); EOS % 2.7 % (0.0-3.0); HEMATOCRIT 33.8 % (42.0-52.0); LYMPH # 1.8 10^3/uL (1.5-5.0); LYMPH % 16.6 % (24.0-44.0); MEAN CORPUSCULAR HEMOGLOBIN 21.6 pg (27.0-33.0); MEAN CORPUSCULAR HGB CONC 29.6 g/dl (32.0-36.5); MONO # 0.7 10^3/uL (0.0-0.8); MONO % 6.7 % (2.0-8.0); NEUTROPHILS # 7.9 10^3/uL (1.5-8.5); NEUTROPHILS % 72.4 % (36.0-66.0); PLATELET COUNT, AUTOMATED 472 10^3/uL (150-450); RED BLOOD COUNT 4.63 10^6/uL (4.30-6.10); WHITE BLOOD COUNT 10.9 10^3/uL (4.0-10.0)
[2021-07-21 07:03] LABS: BLOOD UREA NITROGEN 10 MG/DL (7-18); CALCIUM LEVEL 8.9 MG/DL (8.8-10.2); CARBON DIOXIDE LEVEL 26 MEQ/L (21-32); CHLORIDE LEVEL 104 MEQ/L (98-107); GLOMERULAR FILTRATION RATE > 60.0 (>49); GLUCOSE, FASTING 184 MG/DL (70-100); POTASSIUM SERUM 4.9 MEQ/L (3.5-5.1); SODIUM LEVEL 136 MEQ/L (136-145)
[2021-07-21 08:00] VITALS: BP 102/64; TEMP 98.3; O2SAT 95
[2021-07-22 06:00] VITALS: BP 118/73; TEMP 97.3; O2SAT 93
[2021-07-22 06:13] LABS: BASO # 0.1 10^3/uL (0.0-0.2); BASO % 0.8 % (0.0-1.0); EOS # 0.3 10^3/uL (0.0-0.5); EOS % 3.2 % (0.0-3.0); HEMOGLOBIN 9.6 g/dl (13.5-17.5); LYMPH # 1.6 10^3/uL (1.5-5.0); LYMPH % 14.9 % (24.0-44.0); MEAN CORPUSCULAR HEMOGLOBIN 21.7 pg (27.0-33.0); MEAN CORPUSCULAR VOLUME 72.4 fl (80.0-96.0); MONO # 0.8 10^3/uL (0.0-0.8); MONO % 7.5 % (2.0-8.0); NEUTROPHILS # 7.6 10^3/uL (1.5-8.5); NEUTROPHILS % 72.5 % (36.0-66.0); PLATELET COUNT, AUTOMATED 494 10^3/uL (150-450); RED BLOOD COUNT 4.42 10^6/uL (4.30-6.10); WHITE BLOOD COUNT 10.5 10^3/uL (4.0-10.0)
[2021-07-22 06:36] LABS: BLOOD UREA NITROGEN 10 MG/DL (7-18); CALCIUM LEVEL 8.3 MG/DL (8.8-10.2); CARBON DIOXIDE LEVEL 29 MEQ/L (21-32); CHLORIDE LEVEL 104 MEQ/L (98-107); GLOMERULAR FILTRATION RATE > 60.0 (>49); GLUCOSE, FASTING 175 MG/DL (70-100); POTASSIUM SERUM 4.4 MEQ/L (3.5-5.1); SODIUM LEVEL 136 MEQ/L (136-145)
[2021-07-23 04:04] VITALS: BP 126/69; TEMP 97.6; O2SAT 94
[2021-07-23 06:08] LABS: BASO # 0.1 10^3/uL (0.0-0.2); BASO % 0.9 % (0.0-1.0); EOS # 0.3 10^3/uL (0.0-0.5); EOS % 3.3 % (0.0-3.0); HEMATOCRIT 33.8 % (42.0-52.0); HEMOGLOBIN 10.1 g/dl (13.5-17.5); LYMPH # 1.8 10^3/uL (1.5-5.0); LYMPH % 18.7 % (24.0-44.0); MEAN CORPUSCULAR HEMOGLOBIN 21.9 pg (27.0-33.0); MEAN CORPUSCULAR HGB CONC 29.9 g/dl (32.0-36.5); MEAN CORPUSCULAR VOLUME 73.2 fl (80.0-96.0); MONO # 0.7 10^3/uL (0.0-0.8); MONO % 7.9 % (2.0-8.0); NEUTROPHILS # 6.4 10^3/uL (1.5-8.5); NEUTROPHILS % 68.2 % (36.0-66.0); PLATELET COUNT, AUTOMATED 480 10^3/uL (150-450); RED BLOOD COUNT 4.62 10^6/uL (4.30-6.10); WHITE BLOOD COUNT 9.4 10^3/uL (4.0-10.0)
[2021-07-23 06:29] LABS: BLOOD UREA NITROGEN 10 MG/DL (7-18); CALCIUM LEVEL 8.5 MG/DL (8.8-10.2); CARBON DIOXIDE LEVEL 29 MEQ/L (21-32); CHLORIDE LEVEL 104 MEQ/L (98-107); CREATININE FOR GFR 0.37 MG/DL (0.70-1.30); GLOMERULAR FILTRATION RATE > 60.0 (>49); GLUCOSE, FASTING 175 MG/DL (70-100); POTASSIUM SERUM 4.4 MEQ/L (3.5-5.1); SODIUM LEVEL 135 MEQ/L (136-145)
[2021-07-24 04:00] VITALS: BP 142/74; TEMP 97.8; O2SAT 94
[2021-07-24 06:52] LABS: BASO # 0.1 10^3/uL (0.0-0.2); BASO % 0.8 % (0.0-1.0); EOS # 0.3 10^3/uL (0.0-0.5); EOS % 3.4 % (0.0-3.0); HEMATOCRIT 33.3 % (42.0-52.0); LYMPH # 1.5 10^3/uL (1.5-5.0); LYMPH % 16.6 % (24.0-44.0); MEAN CORPUSCULAR HEMOGLOBIN 22.1 pg (27.0-33.0); MEAN CORPUSCULAR VOLUME 73.5 fl (80.0-96.0); MONO # 0.7 10^3/uL (0.0-0.8); MONO % 7.4 % (2.0-8.0); NEUTROPHILS # 6.3 10^3/uL (1.5-8.5); NEUTROPHILS % 70.8 % (36.0-66.0); PLATELET COUNT, AUTOMATED 482 10^3/uL (150-450); RED BLOOD COUNT 4.53 10^6/uL (4.30-6.10); WHITE BLOOD COUNT 8.9 10^3/uL (4.0-10.0)
[2021-07-24 07:18] LABS: BLOOD UREA NITROGEN 11 MG/DL (7-18); CALCIUM LEVEL 8.3 MG/DL (8.8-10.2); CARBON DIOXIDE LEVEL 27 MEQ/L (21-32); CHLORIDE LEVEL 104 MEQ/L (98-107); CREATININE FOR GFR 0.37 MG/DL (0.70-1.30); GLOMERULAR FILTRATION RATE > 60.0 (>49); GLUCOSE, FASTING 182 MG/DL (70-100); POTASSIUM SERUM 4.3 MEQ/L (3.5-5.1); SODIUM LEVEL 136 MEQ/L (136-145)
[2021-07-24] MEDS: metroNIDAZOLE (FLAGYL) 500MG TABLET PO SCH (17:27)
[2021-07-25 06:00] VITALS: BP 120/73; TEMP 97.5; O2SAT 98
[2021-07-25] MEDS: CEFDINIR 300 MG CAP (OMNICEF) PO SCH (21:07)
[2021-07-26 06:00] VITALS: BP 121/73; TEMP 98; O2SAT 97
[2021-07-27 06:00] VITALS: BP 125/73; TEMP 96.2; O2SAT 95
[2021-07-28 06:00] VITALS: BP 121/74; TEMP 96.6; O2SAT 97
[2021-07-28 09:01] VITALS: BP 117/73; TEMP 98.1; O2SAT 95
[2021-07-29 06:00] VITALS: BP_SYST 120; TEMP 96.9; O2SAT 99
[2021-07-30 06:00] VITALS: BP 127/79; TEMP 97.4; O2SAT 96
[2021-07-31 06:00] VITALS: BP 129/64; TEMP 98.1; O2SAT 97
[2021-07-31 07:10] LABS: HEMATOCRIT 33.6 % (42.0-52.0); HEMOGLOBIN 10.1 g/dl (13.5-17.5); MEAN CORPUSCULAR HEMOGLOBIN 22.2 pg (27.0-33.0); MEAN CORPUSCULAR HGB CONC 30.1 g/dl (32.0-36.5); MEAN CORPUSCULAR VOLUME 73.8 fl (80.0-96.0); PLATELET COUNT, AUTOMATED 437 10^3/uL (150-450); RED BLOOD COUNT 4.55 10^6/uL (4.30-6.10); WHITE BLOOD COUNT 8.9 10^3/uL (4.0-10.0)
[2021-07-31 07:30] LABS: BLOOD UREA NITROGEN 23 MG/DL (7-18); CALCIUM LEVEL 8.8 MG/DL (8.8-10.2); CARBON DIOXIDE LEVEL 26 MEQ/L (21-32); CHLORIDE LEVEL 104 MEQ/L (98-107); CREATININE FOR GFR 0.37 MG/DL (0.70-1.30); GLOMERULAR FILTRATION RATE > 60.0 (>49); GLUCOSE, FASTING 233 MG/DL (70-100); POTASSIUM SERUM 4.2 MEQ/L (3.5-5.1); SODIUM LEVEL 138 MEQ/L (136-145)
[2021-08-01 06:53] VITALS: BP 137/63; TEMP 97.2; O2SAT 98
[2021-08-01 08:00] VITALS: BP 124/75; TEMP 98; O2SAT 96
[2021-08-01 14:00] VITALS: BP 127/75; TEMP 98; O2SAT 96
[2021-08-02 11:23] VITALS: BP 127/74; TEMP 98.2
[2021-08-03 06:00] VITALS: BP 127/74; TEMP 98.4; O2SAT 98
[2021-08-04 06:00] VITALS: BP_SYST 127; TEMP 97.8; O2SAT 97
[2021-08-05 06:00] VITALS: BP 122/75; TEMP 98.6; O2SAT 95
[2021-08-05 13:00] VITALS: TEMP 99.5
[2021-08-05 13:59] VITALS: TEMP 98.6
[2021-08-05 14:47] LABS: HEMATOCRIT 33.7 % (42.0-52.0); HEMOGLOBIN 10.1 g/dl (13.5-17.5); MEAN CORPUSCULAR VOLUME 73.4 fl (80.0-96.0); PLATELET COUNT, AUTOMATED 462 10^3/uL (150-450); RED BLOOD COUNT 4.59 10^6/uL (4.30-6.10)
[2021-08-05 14:52] LABS: BLOOD UREA NITROGEN 20 MG/DL (7-18); CALCIUM LEVEL 8.6 MG/DL (8.8-10.2); CARBON DIOXIDE LEVEL 25 MEQ/L (21-32); CHLORIDE LEVEL 105 MEQ/L (98-107); CREATININE FOR GFR 0.52 MG/DL (0.70-1.30); GLOMERULAR FILTRATION RATE > 60.0 (>49); GLUCOSE, FASTING 322 MG/DL (70-100); POTASSIUM SERUM 4.1 MEQ/L (3.5-5.1); SODIUM LEVEL 137 MEQ/L (136-145)
[2021-08-06 06:00] VITALS: BP 135/77; TEMP 97.8; O2SAT 95
[2021-08-07 06:00] VITALS: BP 124/68; TEMP 97.8; O2SAT 97
[2021-08-07 11:06] LABS: BASO # 0.1 10^3/uL (0.0-0.2); BASO % 0.6 % (0.0-1.0); EOS # 0.2 10^3/uL (0.0-0.5); EOS % 2.6 % (0.0-3.0); HEMATOCRIT 33.5 % (42.0-52.0); HEMOGLOBIN 10.2 g/dl (13.5-17.5); LYMPH # 1.4 10^3/uL (1.5-5.0); LYMPH % 14.6 % (24.0-44.0); MEAN CORPUSCULAR HEMOGLOBIN 22.7 pg (27.0-33.0); MEAN CORPUSCULAR HGB CONC 30.4 g/dl (32.0-36.5); MEAN CORPUSCULAR VOLUME 74.6 fl (80.0-96.0); MONO # 0.6 10^3/uL (0.0-0.8); MONO % 6.4 % (2.0-8.0); NEUTROPHILS # 6.9 10^3/uL (1.5-8.5); NEUTROPHILS % 74.9 % (36.0-66.0); PLATELET COUNT, AUTOMATED 459 10^3/uL (150-450); RED BLOOD COUNT 4.49 10^6/uL (4.30-6.10); WHITE BLOOD COUNT 9.3 10^3/uL (4.0-10.0)
[2021-08-08 06:47] VITALS: BP 123/69; TEMP 96.5; O2SAT 97
[2021-08-09 06:00] VITALS: BP 122/69; TEMP 97.8; O2SAT 96
[2021-08-10 06:00] VITALS: BP 127/80; TEMP 97.9; O2SAT 97
[2021-08-10] MEDS: CEFDINIR 300 MG CAP (OMNICEF) PO SCH (14:09)
[2021-08-11 06:28] VITALS: BP 132/78; TEMP 96.7; O2SAT 97
[2021-08-12 06:00] VITALS: BP 121/74; TEMP 97.7; O2SAT 97
[2021-08-13 06:00] VITALS: BP 124/80; TEMP 97.8; O2SAT 96
[2021-08-13 16:53] LABS: HEMATOCRIT 33.6 % (42.0-52.0); MEAN CORPUSCULAR HEMOGLOBIN 22.2 pg (27.0-33.0); MEAN CORPUSCULAR HGB CONC 29.8 g/dl (32.0-36.5); MEAN CORPUSCULAR VOLUME 74.5 fl (80.0-96.0); PLATELET COUNT, AUTOMATED 465 10^3/uL (150-450); RED BLOOD COUNT 4.51 10^6/uL (4.30-6.10); WHITE BLOOD COUNT 11.6 10^3/uL (4.0-10.0)
[2021-08-13 17:16] LABS: BLOOD UREA NITROGEN 16 MG/DL (7-18); C REACTIVE PROTEIN QUANTITATIV 6.27 MG/DL (0.00-0.30); CALCIUM LEVEL 8.5 MG/DL (8.8-10.2); CARBON DIOXIDE LEVEL 27 MEQ/L (21-32); CHLORIDE LEVEL 104 MEQ/L (98-107); CREATININE FOR GFR 0.59 MG/DL (0.70-1.30); GLOMERULAR FILTRATION RATE > 60.0 (>49); GLUCOSE, FASTING 315 MG/DL (70-100); POTASSIUM SERUM 4.2 MEQ/L (3.5-5.1); SODIUM LEVEL 134 MEQ/L (136-145)
[2021-08-13 20:46] LABS: ERYTHROCYTE SEDIMENTATION RATE 92 mm/hr (0-20)
[2021-08-14 06:00] VITALS: BP 116/72; TEMP 97; O2SAT 96
[2021-08-14] MEDS: GASTROGRAFIN SOLUTION 30ML PO SCH (10:49)
[2021-08-14] MEDS: metroNIDAZOLE (FLAGYL) 500MG TABLET PO SCH (16:30)
[2021-08-15 06:00] VITALS: BP 120/73; TEMP 96.6; O2SAT 97
[2021-08-16 06:00] VITALS: BP 120/74; TEMP 97.6; O2SAT 98
[2021-08-17 06:04] VITALS: BP 116/61; TEMP 96.8; O2SAT 95
[2021-08-18 05:42] VITALS: BP 128/70; TEMP 97.5; O2SAT 98
[2021-08-18] MEDS: KETOCONAZOLE 2% CREAM TOP SCH (21:23)
[2021-08-19 05:53] VITALS: BP 125/69; TEMP 96.8; O2SAT 98
[2021-08-19 11:50] LABS: BLOOD UREA NITROGEN 10 MG/DL (7-18); CARBON DIOXIDE LEVEL 28 MEQ/L (21-32); CHLORIDE LEVEL 105 MEQ/L (98-107); CREATININE FOR GFR 0.52 MG/DL (0.70-1.30); GLOMERULAR FILTRATION RATE > 60.0 (>49); GLUCOSE, FASTING 282 MG/DL (70-100); POTASSIUM SERUM 4.1 MEQ/L (3.5-5.1); SODIUM LEVEL 135 MEQ/L (136-145)
[2021-08-19 11:54] LABS: HEMOGLOBIN A1c 7.6 %
[2021-08-19 13:38] LABS: HEMATOCRIT 33.8 % (42.0-52.0); HEMOGLOBIN 10.2 g/dl (13.5-17.5); MEAN CORPUSCULAR HEMOGLOBIN 22.7 pg (27.0-33.0); MEAN CORPUSCULAR HGB CONC 30.2 g/dl (32.0-36.5); MEAN CORPUSCULAR VOLUME 75.1 fl (80.0-96.0); PLATELET COUNT, AUTOMATED 400 10^3/uL (150-450); WHITE BLOOD COUNT 8.2 10^3/uL (4.0-10.0)
[2021-08-19] MEDS: INSULIN LISPRO (NovoLOG) PER UNIT SC SCH ×2 (18:39→21:00)
[2021-08-19] MEDS: LEVEMIR (INSULIN DETEMIR) 1 UNITS/0.01ML SC SCH (21:26)
[2021-08-20 05:47] VITALS: BP 125/68; TEMP 98.1; O2SAT 99
[2021-08-21 05:58] VITALS: BP 135/84; TEMP 97.9; O2SAT 97
[2021-08-22 06:00] VITALS: BP 131/78; TEMP 98.4; O2SAT 97
[2021-08-23 06:01] VITALS: BP 124/75; TEMP 98.2; O2SAT 97
[2021-08-24 06:00] VITALS: BP 114/68; TEMP 97.9; O2SAT 96
[2021-08-25 05:45] VITALS: BP 114/69; TEMP 98.2; O2SAT 97
[2021-08-25 08:50] LABS: BASO # 0.1 10^3/uL (0.0-0.2); BASO % 1.2 % (0.0-1.0); EOS # 0.2 10^3/uL (0.0-0.5); HEMATOCRIT 36.5 % (42.0-52.0); HEMOGLOBIN 10.7 g/dl (13.5-17.5); LYMPH # 1.4 10^3/uL (1.5-5.0); MEAN CORPUSCULAR HEMOGLOBIN 22.2 pg (27.0-33.0); MEAN CORPUSCULAR HGB CONC 29.3 g/dl (32.0-36.5); MEAN CORPUSCULAR VOLUME 75.6 fl (80.0-96.0); MONO # 0.5 10^3/uL (0.0-0.8); MONO % 6.7 % (2.0-8.0); NEUTROPHILS # 5.5 10^3/uL (1.5-8.5); NEUTROPHILS % 70.5 % (36.0-66.0); PLATELET COUNT, AUTOMATED 472 10^3/uL (150-450); RED BLOOD COUNT 4.83 10^6/uL (4.30-6.10); WHITE BLOOD COUNT 7.8 10^3/uL (4.0-10.0)
[2021-08-25 09:11] LABS: BLOOD UREA NITROGEN 14 MG/DL (7-18); C REACTIVE PROTEIN QUANTITATIV 4.52 MG/DL (0.00-0.30); CARBON DIOXIDE LEVEL 28 MEQ/L (21-32); CHLORIDE LEVEL 105 MEQ/L (98-107); CREATININE FOR GFR 0.55 MG/DL (0.70-1.30); GLOMERULAR FILTRATION RATE > 60.0 (>49); GLUCOSE, FASTING 221 MG/DL (70-100); POTASSIUM SERUM 4.5 MEQ/L (3.5-5.1); SODIUM LEVEL 138 MEQ/L (136-145)
[2021-08-26 06:00] VITALS: BP 111/74; TEMP 97.9; O2SAT 95
[2021-08-26 06:09] LABS: BASO # 0.1 10^3/uL (0.0-0.2); EOS # 0.3 10^3/uL (0.0-0.5); EOS % 3.8 % (0.0-3.0); HEMATOCRIT 32.4 % (42.0-52.0); HEMOGLOBIN 9.6 g/dl (13.5-17.5); LYMPH # 1.8 10^3/uL (1.5-5.0); LYMPH % 21.8 % (24.0-44.0); MEAN CORPUSCULAR HEMOGLOBIN 22.3 pg (27.0-33.0); MEAN CORPUSCULAR HGB CONC 29.6 g/dl (32.0-36.5); MEAN CORPUSCULAR VOLUME 75.2 fl (80.0-96.0); MONO # 0.8 10^3/uL (0.0-0.8); NEUTROPHILS # 5.1 10^3/uL (1.5-8.5); NEUTROPHILS % 62.7 % (36.0-66.0); PLATELET COUNT, AUTOMATED 437 10^3/uL (150-450); RED BLOOD COUNT 4.31 10^6/uL (4.30-6.10); WHITE BLOOD COUNT 8.2 10^3/uL (4.0-10.0)
[2021-08-26 06:50] LABS: BLOOD UREA NITROGEN 12 MG/DL (7-18); C REACTIVE PROTEIN QUANTITATIV 5.07 MG/DL (0.00-0.30); CALCIUM LEVEL 8.2 MG/DL (8.8-10.2); CARBON DIOXIDE LEVEL 27 MEQ/L (21-32); CHLORIDE LEVEL 106 MEQ/L (98-107); CREATININE FOR GFR 0.39 MG/DL (0.70-1.30); GLOMERULAR FILTRATION RATE > 60.0 (>49); GLUCOSE, FASTING 161 MG/DL (70-100); MAGNESIUM LEVEL 1.6 MG/DL (1.8-2.4); SODIUM LEVEL 136 MEQ/L (136-145)
[2021-08-26] MEDS: MAGNESIUM OXIDE 400MG TAB (MAG-OX) PO ONE (07:52)
[2021-08-27 06:00] VITALS: BP 121/73; TEMP 98; O2SAT 96
[2021-08-27 07:19] LABS: BASO # 0.1 10^3/uL (0.0-0.2); BASO % 1.4 % (0.0-1.0); EOS # 0.3 10^3/uL (0.0-0.5); EOS % 4.2 % (0.0-3.0); HEMATOCRIT 34.8 % (42.0-52.0); HEMOGLOBIN 10.1 g/dl (13.5-17.5); LYMPH # 1.3 10^3/uL (1.5-5.0); LYMPH % 19.1 % (24.0-44.0); MEAN CORPUSCULAR VOLUME 75.7 fl (80.0-96.0); MONO # 0.5 10^3/uL (0.0-0.8); MONO % 7.1 % (2.0-8.0); NEUTROPHILS # 4.5 10^3/uL (1.5-8.5); NEUTROPHILS % 67.4 % (36.0-66.0); PLATELET COUNT, AUTOMATED 453 10^3/uL (150-450); WHITE BLOOD COUNT 6.6 10^3/uL (4.0-10.0)
[2021-08-27 07:41] LABS: BLOOD UREA NITROGEN 10 MG/DL (7-18); CALCIUM LEVEL 8.9 MG/DL (8.8-10.2); CARBON DIOXIDE LEVEL 27 MEQ/L (21-32); CHLORIDE LEVEL 107 MEQ/L (98-107); CREATININE FOR GFR 0.42 MG/DL (0.70-1.30); GLOMERULAR FILTRATION RATE > 60.0 (>49); GLUCOSE, FASTING 181 MG/DL (70-100); MAGNESIUM LEVEL 1.9 MG/DL (1.8-2.4); POTASSIUM SERUM 4.3 MEQ/L (3.5-5.1); SODIUM LEVEL 140 MEQ/L (136-145)
[2021-08-28 05:39] VITALS: BP 118/71; TEMP 97.9; O2SAT 97
[2021-08-28 06:22] LABS: HEMATOCRIT 33.2 % (42.0-52.0); HEMOGLOBIN 9.8 g/dl (13.5-17.5); MEAN CORPUSCULAR HEMOGLOBIN 22.3 pg (27.0-33.0); MEAN CORPUSCULAR HGB CONC 29.5 g/dl (32.0-36.5); MEAN CORPUSCULAR VOLUME 75.5 fl (80.0-96.0); PLATELET COUNT, AUTOMATED 468 10^3/uL (150-450)
[2021-08-28 06:52] LABS: BLOOD UREA NITROGEN 15 MG/DL (7-18); C REACTIVE PROTEIN QUANTITATIV 2.87 MG/DL (0.00-0.30); CALCIUM LEVEL 8.8 MG/DL (8.8-10.2); CARBON DIOXIDE LEVEL 27 MEQ/L (21-32); CHLORIDE LEVEL 108 MEQ/L (98-107); CREATININE FOR GFR 0.48 MG/DL (0.70-1.30); GLOMERULAR FILTRATION RATE > 60.0 (>49); GLUCOSE, FASTING 189 MG/DL (70-100); MAGNESIUM LEVEL 1.9 MG/DL (1.8-2.4); POTASSIUM SERUM 4.1 MEQ/L (3.5-5.1); SODIUM LEVEL 140 MEQ/L (136-145)
[2021-08-28 07:22] LABS: EOSINOPHILS 6 % (0-3); LYMPHOCYTES 28 % (16-44); MONOCYTES 2 % (0-5); NEUTROPHILS 64 % (28-66); PLATELET ESTIMATE INCREASED (NORMAL)
[2021-08-29 06:00] VITALS: BP 111/66; TEMP 98.1; O2SAT 97
[2021-08-29 06:31] LABS: HEMATOCRIT 33.6 % (42.0-52.0); HEMOGLOBIN 9.8 g/dl (13.5-17.5); MEAN CORPUSCULAR HEMOGLOBIN 22.1 pg (27.0-33.0); MEAN CORPUSCULAR HGB CONC 29.2 g/dl (32.0-36.5); MEAN CORPUSCULAR VOLUME 75.7 fl (80.0-96.0); PLATELET COUNT, AUTOMATED 456 10^3/uL (150-450); RED BLOOD COUNT 4.44 10^6/uL (4.30-6.10); WHITE BLOOD COUNT 6.7 10^3/uL (4.0-10.0)
[2021-08-29 06:57] LABS: BLOOD UREA NITROGEN 21 MG/DL (7-18); C REACTIVE PROTEIN QUANTITATIV 1.91 MG/DL (0.00-0.30); CALCIUM LEVEL 8.7 MG/DL (8.8-10.2); CARBON DIOXIDE LEVEL 28 MEQ/L (21-32); CHLORIDE LEVEL 109 MEQ/L (98-107); GLOMERULAR FILTRATION RATE > 60.0 (>49); GLUCOSE, FASTING 196 MG/DL (70-100); MAGNESIUM LEVEL 1.9 MG/DL (1.8-2.4); POTASSIUM SERUM 4.3 MEQ/L (3.5-5.1); SODIUM LEVEL 140 MEQ/L (136-145)
[2021-08-29 07:27] LABS: BASOPHILS 1 % (0-1); EOSINOPHILS 5 % (0-3); LYMPHOCYTES 28 % (16-44); MONOCYTES 11 % (0-5); NEUTROPHILS 55 % (28-66)
[2021-08-29 07:29] LABS: ANISOCYTOSIS 2+
[2021-08-29 07:30] LABS: MICROCYTOSIS 1+
[2021-08-29 07:31] LABS: PLATELET ESTIMATE INCREASED (NORMAL); POLYCHROMASIA 1+
[2021-08-29 07:50] VITALS: BP 110/72; TEMP 98.9; O2SAT 96
[2021-08-30 05:45] VITALS: BP 105/66; TEMP 97.3; O2SAT 97
[2021-08-30 06:48] LABS: BASO # 0.1 10^3/uL (0.0-0.2); EOS # 0.3 10^3/uL (0.0-0.5); EOS % 3.8 % (0.0-3.0); HEMATOCRIT 35.1 % (42.0-52.0); HEMOGLOBIN 10.2 g/dl (13.5-17.5); LYMPH # 1.6 10^3/uL (1.5-5.0); MEAN CORPUSCULAR HGB CONC 29.1 g/dl (32.0-36.5); MEAN CORPUSCULAR VOLUME 75.8 fl (80.0-96.0); MONO # 0.7 10^3/uL (0.0-0.8); MONO % 7.6 % (2.0-8.0); NEUTROPHILS # 6.2 10^3/uL (1.5-8.5); NEUTROPHILS % 69.2 % (36.0-66.0); PLATELET COUNT, AUTOMATED 477 10^3/uL (150-450); RED BLOOD COUNT 4.63 10^6/uL (4.30-6.10)
[2021-08-30 07:12] LABS: BLOOD UREA NITROGEN 17 MG/DL (7-18); C REACTIVE PROTEIN QUANTITATIV 1.78 MG/DL (0.00-0.30); CALCIUM LEVEL 8.9 MG/DL (8.8-10.2); CARBON DIOXIDE LEVEL 26 MEQ/L (21-32); CHLORIDE LEVEL 109 MEQ/L (98-107); CREATININE FOR GFR 0.54 MG/DL (0.70-1.30); GLOMERULAR FILTRATION RATE > 60.0 (>49); GLUCOSE, FASTING 189 MG/DL (70-100); POTASSIUM SERUM 4.1 MEQ/L (3.5-5.1); SODIUM LEVEL 139 MEQ/L (136-145)
[2021-08-30] MEDS: SIMVASTATIN 20 MG TAB PO SCH (21:08)
[2021-08-31 05:41] LABS: BASO # 0.1 10^3/uL (0.0-0.2); BASO % 0.7 % (0.0-1.0); EOS # 0.3 10^3/uL (0.0-0.5); EOS % 3.6 % (0.0-3.0); HEMATOCRIT 35.3 % (42.0-52.0); HEMOGLOBIN 10.3 g/dl (13.5-17.5); LYMPH # 1.7 10^3/uL (1.5-5.0); LYMPH % 20.1 % (24.0-44.0); MEAN CORPUSCULAR HGB CONC 29.2 g/dl (32.0-36.5); MEAN CORPUSCULAR VOLUME 75.4 fl (80.0-96.0); MONO # 0.6 10^3/uL (0.0-0.8); MONO % 7.2 % (2.0-8.0); NEUTROPHILS # 5.7 10^3/uL (1.5-8.5); NEUTROPHILS % 67.9 % (36.0-66.0); PLATELET COUNT, AUTOMATED 440 10^3/uL (150-450); RED BLOOD COUNT 4.68 10^6/uL (4.30-6.10); WHITE BLOOD COUNT 8.5 10^3/uL (4.0-10.0)
[2021-08-31 06:02] LABS: BLOOD UREA NITROGEN 16 MG/DL (7-18); C REACTIVE PROTEIN QUANTITATIV 2.28 MG/DL (0.00-0.30); CALCIUM LEVEL 8.7 MG/DL (8.8-10.2); CARBON DIOXIDE LEVEL 27 MEQ/L (21-32); CHLORIDE LEVEL 107 MEQ/L (98-107); GLOMERULAR FILTRATION RATE > 60.0 (>49); GLUCOSE, FASTING 176 MG/DL (70-100); MAGNESIUM LEVEL 1.9 MG/DL (1.8-2.4); POTASSIUM SERUM 4.2 MEQ/L (3.5-5.1); SODIUM LEVEL 138 MEQ/L (136-145)
[2021-08-31 06:10] VITALS: BP 123/73; TEMP 97.9; O2SAT 96
[2021-08-31] MEDS: OMEPRAZOLE 20MG CAP PO SCH (08:30)
[2021-08-31] MEDS: NYSTATIN 100,000 UNITS/GM TOPICAL PWD 15GM TOP PRN (09:35)
[2021-09-01 06:06] VITALS: BP 123/72; TEMP 96.8; O2SAT 96
[2021-09-01 06:20] LABS: BASO # 0.1 10^3/uL (0.0-0.2); BASO % 0.9 % (0.0-1.0); EOS # 0.3 10^3/uL (0.0-0.5); EOS % 3.5 % (0.0-3.0); HEMATOCRIT 34.1 % (42.0-52.0); HEMOGLOBIN 9.9 g/dl (13.5-17.5); LYMPH # 1.7 10^3/uL (1.5-5.0); LYMPH % 19.6 % (24.0-44.0); MEAN CORPUSCULAR HEMOGLOBIN 21.9 pg (27.0-33.0); MEAN CORPUSCULAR VOLUME 75.3 fl (80.0-96.0); MONO # 0.6 10^3/uL (0.0-0.8); MONO % 7.3 % (2.0-8.0); NEUTROPHILS % 67.9 % (36.0-66.0); PLATELET COUNT, AUTOMATED 435 10^3/uL (150-450); RED BLOOD COUNT 4.53 10^6/uL (4.30-6.10); WHITE BLOOD COUNT 8.8 10^3/uL (4.0-10.0)
[2021-09-01 06:47] LABS: BLOOD UREA NITROGEN 15 MG/DL (7-18); C REACTIVE PROTEIN QUANTITATIV 2.86 MG/DL (0.00-0.30); CALCIUM LEVEL 8.4 MG/DL (8.8-10.2); CARBON DIOXIDE LEVEL 28 MEQ/L (21-32); CHLORIDE LEVEL 106 MEQ/L (98-107); CREATININE FOR GFR 0.53 MG/DL (0.70-1.30); GLOMERULAR FILTRATION RATE > 60.0 (>49); GLUCOSE, FASTING 159 MG/DL (70-100); MAGNESIUM LEVEL 1.8 MG/DL (1.8-2.4); POTASSIUM SERUM 3.8 MEQ/L (3.5-5.1); SODIUM LEVEL 137 MEQ/L (136-145)
[2021-09-02 06:00] VITALS: BP 125/69; TEMP 98.8; O2SAT 99
[2021-09-03 06:00] VITALS: BP 121/67; TEMP 97.9; O2SAT 78
[2021-09-03 08:14] LABS: BASO # 0.1 10^3/uL (0.0-0.2); BASO % 0.9 % (0.0-1.0); EOS # 0.3 10^3/uL (0.0-0.5); EOS % 3.7 % (0.0-3.0); HEMATOCRIT 35.9 % (42.0-52.0); HEMOGLOBIN 10.5 g/dl (13.5-17.5); LYMPH # 1.3 10^3/uL (1.5-5.0); LYMPH % 16.5 % (24.0-44.0); MEAN CORPUSCULAR HEMOGLOBIN 21.8 pg (27.0-33.0); MEAN CORPUSCULAR HGB CONC 29.2 g/dl (32.0-36.5); MEAN CORPUSCULAR VOLUME 74.6 fl (80.0-96.0); MONO # 0.6 10^3/uL (0.0-0.8); MONO % 7.4 % (2.0-8.0); NEUTROPHILS # 5.4 10^3/uL (1.5-8.5); NEUTROPHILS % 71.2 % (36.0-66.0); PLATELET COUNT, AUTOMATED 393 10^3/uL (150-450); RED BLOOD COUNT 4.81 10^6/uL (4.30-6.10); WHITE BLOOD COUNT 7.6 10^3/uL (4.0-10.0)
[2021-09-03 08:38] LABS: ALBUMIN 2.5 GM/DL (3.2-5.2); ALKALINE PHOSPHATASE 132 U/L (45-117); ALT/SGPT 22 U/L (12-78); AST/SGOT 16 U/L (7-37); BILIRUBIN,TOTAL 0.4 MG/DL (0.2-1.0); BLOOD UREA NITROGEN 14 MG/DL (7-18); C REACTIVE PROTEIN QUANTITATIV 3.63 MG/DL (0.00-0.30); CALCIUM LEVEL 9.1 MG/DL (8.8-10.2); CARBON DIOXIDE LEVEL 26 MEQ/L (21-32); CHLORIDE LEVEL 107 MEQ/L (98-107); CREATININE FOR GFR 0.43 MG/DL (0.70-1.30); GLOMERULAR FILTRATION RATE > 60.0 (>49); GLUCOSE, FASTING 156 MG/DL (70-100); MAGNESIUM LEVEL 1.9 MG/DL (1.8-2.4); SODIUM LEVEL 141 MEQ/L (136-145)
[2021-09-04 06:00] VITALS: BP 121/71; TEMP 97.5; O2SAT 94
[2021-09-05 06:00] VITALS: BP 146/85; TEMP 97.8; O2SAT 99
[2021-09-06 06:00] VITALS: BP 127/72; TEMP 97; O2SAT 96
[2021-09-07 06:00] VITALS: BP 120/70; TEMP 97.9; O2SAT 97
[2021-09-08 06:11] VITALS: BP 124/71; TEMP 97; O2SAT 97
[2021-09-09 05:39] VITALS: BP 120/71; TEMP 97.3; O2SAT 98
[2021-09-10 06:00] VITALS: BP 114/69; TEMP 97.9; O2SAT 96
[2021-09-10 10:30] VITALS: BP 108/60; TEMP 98.4; O2SAT 97
[2021-09-11 06:00] VITALS: BP 114/69; TEMP 98.2; O2SAT 96
[2021-09-12 04:55] VITALS: BP 118/70; TEMP 97; O2SAT 90
[2021-09-13 06:00] VITALS: BP 117/71; TEMP 97.2; O2SAT 97
[2021-09-13 15:21] LABS: HEMOGLOBIN 9.6 g/dl (13.5-17.5); MEAN CORPUSCULAR HEMOGLOBIN 22.5 pg (27.0-33.0); MEAN CORPUSCULAR HGB CONC 29.1 g/dl (32.0-36.5); MEAN CORPUSCULAR VOLUME 77.3 fl (80.0-96.0); PLATELET COUNT, AUTOMATED 384 10^3/uL (150-450); RED BLOOD COUNT 4.27 10^6/uL (4.30-6.10); WHITE BLOOD COUNT 7.9 10^3/uL (4.0-10.0)
[2021-09-13 15:54] LABS: BLOOD UREA NITROGEN 20 MG/DL (7-18); C REACTIVE PROTEIN QUANTITATIV 6.73 MG/DL (0.00-0.30); CALCIUM LEVEL 8.6 MG/DL (8.8-10.2); CARBON DIOXIDE LEVEL 26 MEQ/L (21-32); CHLORIDE LEVEL 108 MEQ/L (98-107); CREATININE FOR GFR 0.46 MG/DL (0.70-1.30); GLOMERULAR FILTRATION RATE > 60.0 (>49); GLUCOSE, FASTING 210 MG/DL (70-100); NT-PRO BNP 57 PG/ML (<125); POTASSIUM SERUM 4.6 MEQ/L (3.5-5.1); SODIUM LEVEL 140 MEQ/L (136-145)
[2021-09-13] MEDS: guaiFENesin ER TABLET 600 MG TAB PO PRN (21:08)
[2021-09-14 04:00] VITALS: BP 113/68; TEMP 97.7; O2SAT 99
[2021-09-14 06:46] LABS: BASO # 0.1 10^3/uL (0.0-0.2); BASO % 0.9 % (0.0-1.0); EOS # 0.4 10^3/uL (0.0-0.5); EOS % 4.6 % (0.0-3.0); HEMATOCRIT 32.5 % (42.0-52.0); HEMOGLOBIN 9.4 g/dl (13.5-17.5); LYMPH # 1.7 10^3/uL (1.5-5.0); LYMPH % 21.7 % (24.0-44.0); MEAN CORPUSCULAR HEMOGLOBIN 22.4 pg (27.0-33.0); MEAN CORPUSCULAR HGB CONC 28.9 g/dl (32.0-36.5); MEAN CORPUSCULAR VOLUME 77.4 fl (80.0-96.0); MONO # 0.6 10^3/uL (0.0-0.8); MONO % 7.4 % (2.0-8.0); NEUTROPHILS # 5.1 10^3/uL (1.5-8.5); NEUTROPHILS % 64.9 % (36.0-66.0); PLATELET COUNT, AUTOMATED 370 10^3/uL (150-450); WHITE BLOOD COUNT 7.9 10^3/uL (4.0-10.0)
[2021-09-14 07:03] LABS: BLOOD UREA NITROGEN 19 MG/DL (7-18); C REACTIVE PROTEIN QUANTITATIV 5.18 MG/DL (0.00-0.30); CALCIUM LEVEL 8.7 MG/DL (8.8-10.2); CARBON DIOXIDE LEVEL 26 MEQ/L (21-32); CHLORIDE LEVEL 108 MEQ/L (98-107); CREATININE FOR GFR 0.33 MG/DL (0.70-1.30); GLOMERULAR FILTRATION RATE > 60.0 (>49); GLUCOSE, FASTING 151 MG/DL (70-100); POTASSIUM SERUM 4.2 MEQ/L (3.5-5.1); SODIUM LEVEL 141 MEQ/L (136-145)
[2021-09-15 06:21] VITALS: BP 98/64; TEMP 97.9; O2SAT 97
[2021-09-16 05:00] VITALS: BP 112/70; TEMP 97.2; O2SAT 98
[2021-09-17 06:00] VITALS: BP 110/70; TEMP 97; O2SAT 97
[2021-09-18 06:00] VITALS: BP 129/68; TEMP 98.4; O2SAT 96
[2021-09-18] MEDS: MYCOLOG CREAM 15GM (NYSTATIN/TRIAMCINOLONE) TOP SCH (17:55)
[2021-09-19 06:14] VITALS: BP 117/70; TEMP 98.4; O2SAT 97
[2021-09-20 06:00] VITALS: BP 117/69; TEMP 98.2; O2SAT 96
[2021-09-21 04:14] VITALS: BP 118/68; TEMP 98.4; O2SAT 97
[2021-09-22 06:00] VITALS: BP 119/69; TEMP 97.5; O2SAT 98
[2021-09-23 06:00] VITALS: BP 110/66; TEMP 98.1; O2SAT 98
[2021-09-24 04:00] VITALS: BP 111/65; TEMP 97.3; O2SAT 96
[2021-09-24 08:00] VITALS: BP 115/66; TEMP 97.3; O2SAT 98
[2021-09-24 09:06] LABS: HEMATOCRIT 34.8 % (42.0-52.0); HEMOGLOBIN 10.3 g/dl (13.5-17.5); MEAN CORPUSCULAR HEMOGLOBIN 22.2 pg (27.0-33.0); MEAN CORPUSCULAR HGB CONC 29.6 g/dl (32.0-36.5); PLATELET COUNT, AUTOMATED 391 10^3/uL (150-450); RED BLOOD COUNT 4.64 10^6/uL (4.30-6.10); WHITE BLOOD COUNT 7.6 10^3/uL (4.0-10.0)
[2021-09-24 09:41] LABS: ALBUMIN 2.7 GM/DL (3.2-5.2); ALKALINE PHOSPHATASE 129 U/L (45-117); ALT/SGPT 15 U/L (12-78); AST/SGOT 11 U/L (7-37); BILIRUBIN,TOTAL 0.4 MG/DL (0.2-1.0); BLOOD UREA NITROGEN 21 MG/DL (7-18); CALCIUM LEVEL 8.7 MG/DL (8.8-10.2); CARBON DIOXIDE LEVEL 24 MEQ/L (21-32); CHLORIDE LEVEL 109 MEQ/L (98-107); CREATININE FOR GFR 0.55 MG/DL (0.70-1.30); GLOMERULAR FILTRATION RATE > 60.0 (>49); GLUCOSE, FASTING 226 MG/DL (70-100); POTASSIUM SERUM 4.4 MEQ/L (3.5-5.1); SODIUM LEVEL 141 MEQ/L (136-145); TOTAL PROTEIN 7.8 GM/DL (6.4-8.2)
[2021-09-25 06:50] VITALS: BP 111/64; TEMP 97.1; O2SAT 96
[2021-09-26 05:50] VITALS: BP 125/82; TEMP 97.5; O2SAT 97
[2021-09-26 08:00] VITALS: BP 134/83; TEMP 98.6; O2SAT 98
[2021-09-27 06:00] VITALS: BP 122/72; TEMP 98.4; O2SAT 97
[2021-09-28 06:15] VITALS: BP 123/71; TEMP 97.9; O2SAT 97
[2021-09-29 05:32] VITALS: BP 122/70; TEMP 97.9; O2SAT 98
[2021-09-30 06:00] VITALS: BP 127/69; TEMP 97.9; O2SAT 96
[2021-10-01 05:42] LABS: BASO # 0.1 10^3/uL (0.0-0.2); BASO % 1.1 % (0.0-1.0); EOS # 0.5 10^3/uL (0.0-0.5); EOS % 5.7 % (0.0-3.0); HEMATOCRIT 35.7 % (42.0-52.0); HEMOGLOBIN 10.3 g/dl (13.5-17.5); LYMPH # 1.8 10^3/uL (1.5-5.0); LYMPH % 18.7 % (24.0-44.0); MEAN CORPUSCULAR HEMOGLOBIN 21.4 pg (27.0-33.0); MEAN CORPUSCULAR HGB CONC 28.9 g/dl (32.0-36.5); MEAN CORPUSCULAR VOLUME 74.2 fl (80.0-96.0); MONO # 0.8 10^3/uL (0.0-0.8); MONO % 8.4 % (2.0-8.0); NEUTROPHILS # 6.2 10^3/uL (1.5-8.5); NEUTROPHILS % 65.6 % (36.0-66.0); PLATELET COUNT, AUTOMATED 403 10^3/uL (150-450); RED BLOOD COUNT 4.81 10^6/uL (4.30-6.10); WHITE BLOOD COUNT 9.4 10^3/uL (4.0-10.0)
[2021-10-01 06:00] VITALS: TEMP 98.1; O2SAT 96
[2021-10-01 06:08] LABS: ALBUMIN 2.8 GM/DL (3.2-5.2); ALKALINE PHOSPHATASE 123 U/L (45-117); ALT/SGPT 16 U/L (12-78); AST/SGOT 9 U/L (7-37); BILIRUBIN,TOTAL 0.4 MG/DL (0.2-1.0); BLOOD UREA NITROGEN 21 MG/DL (7-18); CALCIUM LEVEL 8.8 MG/DL (8.8-10.2); CARBON DIOXIDE LEVEL 26 MEQ/L (21-32); CHLORIDE LEVEL 107 MEQ/L (98-107); CREATININE FOR GFR 0.43 MG/DL (0.70-1.30); GLOMERULAR FILTRATION RATE > 60.0 (>49); GLUCOSE, FASTING 163 MG/DL (70-100); MAGNESIUM LEVEL 1.9 MG/DL (1.8-2.4); POTASSIUM SERUM 4.2 MEQ/L (3.5-5.1); SODIUM LEVEL 139 MEQ/L (136-145)
[2021-10-03 06:00] VITALS: BP 118/69; TEMP 97.2; O2SAT 96
[2021-10-03 14:00] VITALS: BP 113/56; TEMP 98.2; O2SAT 99
[2021-10-04 04:24] VITALS: BP 113/66; TEMP 97; O2SAT 97
[2021-10-05 06:43] VITALS: BP 122/73; TEMP 98.1; O2SAT 97
[2021-10-06 04:37] VITALS: BP 118/71; TEMP 97.3; O2SAT 97
[2021-10-06 06:00] LABS: BASO # 0.1 10^3/uL (0.0-0.2); EOS # 0.5 10^3/uL (0.0-0.5); EOS % 7.1 % (0.0-3.0); HEMOGLOBIN 10.1 g/dl (13.5-17.5); LYMPH # 1.5 10^3/uL (1.5-5.0); LYMPH % 20.8 % (24.0-44.0); MEAN CORPUSCULAR HEMOGLOBIN 22.3 pg (27.0-33.0); MEAN CORPUSCULAR HGB CONC 29.7 g/dl (32.0-36.5); MEAN CORPUSCULAR VOLUME 75.1 fl (80.0-96.0); MONO # 0.6 10^3/uL (0.0-0.8); MONO % 8.4 % (2.0-8.0); NEUTROPHILS # 4.6 10^3/uL (1.5-8.5); NEUTROPHILS % 62.3 % (36.0-66.0); PLATELET COUNT, AUTOMATED 342 10^3/uL (150-450); RED BLOOD COUNT 4.53 10^6/uL (4.30-6.10); WHITE BLOOD COUNT 7.4 10^3/uL (4.0-10.0)
[2021-10-06 06:25] LABS: BLOOD UREA NITROGEN 11 MG/DL (7-18); CALCIUM LEVEL 8.4 MG/DL (8.8-10.2); CARBON DIOXIDE LEVEL 28 MEQ/L (21-32); CHLORIDE LEVEL 106 MEQ/L (98-107); CREATININE FOR GFR 0.35 MG/DL (0.70-1.30); GLOMERULAR FILTRATION RATE > 60.0 (>49); GLUCOSE, FASTING 138 MG/DL (70-100); MAGNESIUM LEVEL 1.9 MG/DL (1.8-2.4); POTASSIUM SERUM 3.9 MEQ/L (3.5-5.1); SODIUM LEVEL 138 MEQ/L (136-145)
[2021-10-07 05:26] VITALS: BP 117/70; TEMP 97.7; O2SAT 96
[2021-10-08 05:51] VITALS: BP 112/71; TEMP 97.9; O2SAT 97
[2021-10-09 07:31] VITALS: BP 131/70; TEMP 97.5; O2SAT 97
[2021-10-10 06:00] VITALS: BP 114/65; TEMP 97.2; O2SAT 99
[2021-10-11 06:00] VITALS: BP 113/59; TEMP 98.4; O2SAT 95
[2021-10-12 06:01] VITALS: BP 116/62; TEMP 98.1; O2SAT 97
[2021-10-12 07:20] VITALS: BP 102/60; TEMP 97.5; O2SAT 98
[2021-10-13 06:10] VITALS: BP 114/63; TEMP 97.9; O2SAT 97
[2021-10-14 04:05] VITALS: BP 131/74; TEMP 97.5; O2SAT 98
[2021-10-15 06:00] VITALS: BP_SYST 111; BP_SYST 135; BP_DIAS 58; BP_DIAS 84; TEMP 97.3; TEMP 98.2; O2SAT 98
[2021-10-16 06:00] VITALS: BP 114/58; TEMP 98.8; O2SAT 94
[2021-10-17 06:00] VITALS: BP 123/66; TEMP 97.5; O2SAT 96
[2021-10-18 06:00] VITALS: BP 122/66; TEMP 98.2; O2SAT 97
[2021-10-19 06:00] VITALS: BP 121/66; TEMP 97.5; O2SAT 97
[2021-10-20 06:00] VITALS: BP 122/66; TEMP 96.8; O2SAT 97
[2021-10-20 06:40] LABS: HEMATOCRIT 35.4 % (42.0-52.0); HEMOGLOBIN 10.5 g/dl (13.5-17.5); MEAN CORPUSCULAR HEMOGLOBIN 21.8 pg (27.0-33.0); MEAN CORPUSCULAR HGB CONC 29.7 g/dl (32.0-36.5); MEAN CORPUSCULAR VOLUME 73.4 fl (80.0-96.0); PLATELET COUNT, AUTOMATED 396 10^3/uL (150-450); RED BLOOD COUNT 4.82 10^6/uL (4.30-6.10); WHITE BLOOD COUNT 8.2 10^3/uL (4.0-10.0)
[2021-10-20 07:18] LABS: ALBUMIN 2.8 GM/DL (3.2-5.2); ALKALINE PHOSPHATASE 117 U/L (45-117); ALT/SGPT 15 IU/L (0-32); AST/SGOT 11 U/L (7-37); BILIRUBIN,TOTAL 0.3 MG/DL (0.2-1.0); BLOOD UREA NITROGEN 15 MG/DL (7-18); CALCIUM LEVEL 8.8 MG/DL (8.8-10.2); CARBON DIOXIDE LEVEL 25 mmol/L (20-29); CHLORIDE LEVEL 107 MEQ/L (98-107); CREATININE FOR GFR 0.37 MG/DL (0.70-1.30); GLOMERULAR FILTRATION RATE > 60.0 (>49); GLUCOSE, FASTING 142 MG/DL (70-100); POTASSIUM SERUM 4.1 MEQ/L (3.5-5.1); SODIUM LEVEL 141 MEQ/L (136-145)
[2021-10-21 00:16] VITALS: BP 108/60; TEMP 98.8; O2SAT 96
[2021-10-22 06:00] VITALS: BP 123/69; TEMP 98.2; O2SAT 96
[2021-10-23 06:00] VITALS: BP 109/55; TEMP 98.6; O2SAT 96
[2021-10-24 05:56] VITALS: BP 120/56; TEMP 98.2; O2SAT 97
[2021-10-25 06:00] VITALS: BP 116/57; TEMP 98.1; O2SAT 97
[2021-10-26 06:00] VITALS: BP 120/63; TEMP 98.8; O2SAT 93
[2021-10-27 05:51] VITALS: BP 126/66; TEMP 98.6; O2SAT 95
[2021-10-28 06:00] VITALS: BP 122/69; TEMP 98.8; O2SAT 93
[2021-10-29 06:00] VITALS: BP 121/68; TEMP 98.1; O2SAT 96
[2021-10-30 06:00] VITALS: BP 111/67; TEMP 98.2; O2SAT 97
[2021-10-31 05:25] VITALS: BP 119/66; TEMP 97.7; O2SAT 97
[2021-11-02 06:00] VITALS: BP 140/69; TEMP 98.4; O2SAT 96
[2021-11-03 06:00] VITALS: BP 116/75; TEMP 98.2; O2SAT 96
[2021-11-04 04:00] VITALS: BP 107/67; TEMP 98.2; O2SAT 97
[2021-11-05 06:00] VITALS: BP 124/69; TEMP 97.9; O2SAT 97
[2021-11-05 07:15] VITALS: BP 118/60; TEMP 98.1; O2SAT 96
[2021-11-06 06:00] VITALS: BP 121/71; TEMP 98.1; O2SAT 94
[2021-11-07 06:00] VITALS: BP 120/66; TEMP 98.2; O2SAT 98
[2021-11-08 06:00] VITALS: BP 118/67; TEMP 97.9; O2SAT 97
[2021-11-09 06:00] VITALS: BP 116/64; TEMP 98.2; O2SAT 97
[2021-11-10 06:08] VITALS: BP 118/58; TEMP 97.9; O2SAT 98
[2021-11-11 06:00] VITALS: BP 132/78; TEMP 97.2; O2SAT 97
[2021-11-12 06:00] VITALS: BP 115/72; TEMP 97.9; O2SAT 92
[2021-11-13 06:00] VITALS: BP 115/69; TEMP 98.6; O2SAT 95
[2021-11-14 05:59] VITALS: BP 129/70; TEMP 98.8; O2SAT 96
[2021-11-15 06:00] VITALS: BP 126/70; TEMP 98.2; O2SAT 98
[2021-11-17 10:30] VITALS: BP 132/63; TEMP 98.6; O2SAT 98
[2021-11-18 05:48] VITALS: BP 121/69; TEMP 98.4; O2SAT 98
[2021-11-19 06:00] VITALS: BP 123/69; TEMP 98.6; O2SAT 96
[2021-11-20 06:25] VITALS: BP 122/69; TEMP 98.4; O2SAT 97
[2021-11-21 06:43] VITALS: BP 121/66; TEMP 99; O2SAT 97
[2021-11-22 06:00] VITALS: BP 116/70; TEMP 98.8; O2SAT 96
[2021-11-23 06:14] VITALS: BP 117/70; TEMP 97.5; O2SAT 95
[2021-11-23 07:15] VITALS: BP 122/68; TEMP 98.4; O2SAT 94
[2021-11-24 06:50] VITALS: BP 127/79; TEMP 98.8; O2SAT 99
[2021-11-25 06:00] VITALS: BP 123/67; TEMP 98.6; O2SAT 97
[2021-11-26 06:00] VITALS: BP 123/66; TEMP 98.6
[2021-11-27 06:00] VITALS: BP 121/67; TEMP 98.8; O2SAT 92
[2021-11-28] VITALS (7 sets, daily range): BP systolic 111–121; BP diastolic 65–75; TEMP 96.8–103.8; O2SAT 96–97
[2021-11-28 11:07] LABS: HEMOGLOBIN 10.9 g/dl (13.5-17.5); MEAN CORPUSCULAR HGB CONC 30.3 g/dl (32.0-36.5); MEAN CORPUSCULAR VOLUME 69.4 fl (80.0-96.0); PLATELET COUNT, AUTOMATED 379 10^3/uL (150-450); RED BLOOD COUNT 5.19 10^6/uL (4.30-6.10); WHITE BLOOD COUNT 22.3 10^3/uL (4.0-10.0)
[2021-11-28 11:45] LABS: ALBUMIN 3.1 GM/DL (3.2-5.2); ALKALINE PHOSPHATASE 113 U/L (45-117); ALT/SGPT 22 U/L (12-78); AST/SGOT 9 U/L (7-37); BILIRUBIN,TOTAL 0.9 MG/DL (0.2-1.0); BLOOD UREA NITROGEN 21 MG/DL (7-18); CALCIUM LEVEL 8.8 MG/DL (8.8-10.2); CARBON DIOXIDE LEVEL 26 MEQ/L (21-32); CHLORIDE LEVEL 105 MEQ/L (98-107); CREATININE FOR GFR 0.51 MG/DL (0.70-1.30); GLOMERULAR FILTRATION RATE > 60.0 (>49); GLUCOSE, FASTING 199 MG/DL (70-100); POTASSIUM SERUM 4.1 MEQ/L (3.5-5.1); SODIUM LEVEL 137 MEQ/L (136-145); TOTAL PROTEIN 7.9 GM/DL (6.4-8.2)
[2021-11-28] MEDS: LevoFLOXacin IV 750 MG in IV 1 EA IV SCH (15:12)
[2021-11-29 06:12] VITALS: BP 115/67; TEMP 97.5; O2SAT 97
[2021-11-29 06:15] LABS: HEMATOCRIT 32.9 % (42.0-52.0); HEMOGLOBIN 9.8 g/dl (13.5-17.5); MEAN CORPUSCULAR HGB CONC 29.8 g/dl (32.0-36.5); MEAN CORPUSCULAR VOLUME 70.6 fl (80.0-96.0); PLATELET COUNT, AUTOMATED 307 10^3/uL (150-450); RED BLOOD COUNT 4.66 10^6/uL (4.30-6.10); WHITE BLOOD COUNT 13.2 10^3/uL (4.0-10.0)
[2021-11-29 06:52] LABS: ALBUMIN 2.7 GM/DL (3.2-5.2); ALKALINE PHOSPHATASE 96 U/L (45-117); ALT/SGPT 16 U/L (12-78); AST/SGOT 16 U/L (7-37); BILIRUBIN,TOTAL 0.8 MG/DL (0.2-1.0); BLOOD UREA NITROGEN 21 MG/DL (7-18); CALCIUM LEVEL 8.5 MG/DL (8.8-10.2); CARBON DIOXIDE LEVEL 27 MEQ/L (21-32); CHLORIDE LEVEL 105 MEQ/L (98-107); GLOMERULAR FILTRATION RATE > 60.0 (>49); GLUCOSE, FASTING 124 MG/DL (70-100); MAGNESIUM LEVEL 1.8 MG/DL (1.8-2.4); POTASSIUM SERUM 3.8 MEQ/L (3.5-5.1); SODIUM LEVEL 137 MEQ/L (136-145); TOTAL PROTEIN 7.2 GM/DL (6.4-8.2)
[2021-11-29 14:00] VITALS: BP 114/66; TEMP 97.9; O2SAT 95
[2021-11-29 21:35] VITALS: BP 113/70; TEMP 97.5; O2SAT 98
[2021-11-30 06:00] VITALS: BP 116/72; TEMP 97.5; O2SAT 97
[2021-11-30 06:31] LABS: HEMATOCRIT 33.9 % (42.0-52.0); HEMOGLOBIN 9.7 g/dl (13.5-17.5); MEAN CORPUSCULAR HEMOGLOBIN 20.5 pg (27.0-33.0); MEAN CORPUSCULAR HGB CONC 28.6 g/dl (32.0-36.5); MEAN CORPUSCULAR VOLUME 71.5 fl (80.0-96.0); PLATELET COUNT, AUTOMATED 309 10^3/uL (150-450); RED BLOOD COUNT 4.74 10^6/uL (4.30-6.10); WHITE BLOOD COUNT 7.4 10^3/uL (4.0-10.0)
[2021-11-30 06:48] LABS: ALBUMIN 2.6 GM/DL (3.2-5.2); ALKALINE PHOSPHATASE 85 U/L (45-117); ALT/SGPT 17 U/L (12-78); AST/SGOT 14 U/L (7-37); BILIRUBIN,TOTAL 0.4 MG/DL (0.2-1.0); BLOOD UREA NITROGEN 14 MG/DL (7-18); CALCIUM LEVEL 8.4 MG/DL (8.8-10.2); CARBON DIOXIDE LEVEL 27 MEQ/L (21-32); CHLORIDE LEVEL 108 MEQ/L (98-107); CREATININE FOR GFR 0.39 MG/DL (0.70-1.30); GLOMERULAR FILTRATION RATE > 60.0 (>49); GLUCOSE, FASTING 149 MG/DL (70-100); POTASSIUM SERUM 3.9 MEQ/L (3.5-5.1); SODIUM LEVEL 141 MEQ/L (136-145)
[2021-11-30 14:12] VITALS: BP 117/73; TEMP 98.1; O2SAT 98
[2021-11-30 20:42] VITALS: BP 131/70; TEMP 97; O2SAT 98
[2021-12-01 04:59] VITALS: BP 133/76; TEMP 97.9; O2SAT 97
[2021-12-01 06:21] LABS: MEAN CORPUSCULAR HGB CONC 29.4 g/dl (32.0-36.5); MEAN CORPUSCULAR VOLUME 71.3 fl (80.0-96.0); PLATELET COUNT, AUTOMATED 317 10^3/uL (150-450); RED BLOOD COUNT 4.77 10^6/uL (4.30-6.10); WHITE BLOOD COUNT 8.3 10^3/uL (4.0-10.0)
[2021-12-01 07:03] LABS: ALBUMIN 2.5 GM/DL (3.2-5.2); ALKALINE PHOSPHATASE 85 U/L (45-117); ALT/SGPT 17 U/L (12-78); AST/SGOT 12 U/L (7-37); BILIRUBIN,TOTAL 0.5 MG/DL (0.2-1.0); BLOOD UREA NITROGEN 13 MG/DL (7-18); CALCIUM LEVEL 8.7 MG/DL (8.8-10.2); CARBON DIOXIDE LEVEL 27 MEQ/L (21-32); CHLORIDE LEVEL 108 MEQ/L (98-107); CREATININE FOR GFR 0.39 MG/DL (0.70-1.30); GLOMERULAR FILTRATION RATE > 60.0 (>49); GLUCOSE, FASTING 136 MG/DL (70-100); MAGNESIUM LEVEL 1.9 MG/DL (1.8-2.4); POTASSIUM SERUM 3.8 MEQ/L (3.5-5.1); SODIUM LEVEL 139 MEQ/L (136-145); TOTAL PROTEIN 7.7 GM/DL (6.4-8.2)
[2021-12-01] MEDS: LevoFLOXacin 750 MG TABLET PO SCH (12:55)
[2021-12-02 06:00] VITALS: BP 129/73; TEMP 98.8; O2SAT 98
[2021-12-02 06:19] LABS: HEMOGLOBIN 9.7 g/dl (13.5-17.5); MEAN CORPUSCULAR HEMOGLOBIN 20.8 pg (27.0-33.0); MEAN CORPUSCULAR HGB CONC 29.4 g/dl (32.0-36.5); MEAN CORPUSCULAR VOLUME 70.7 fl (80.0-96.0); PLATELET COUNT, AUTOMATED 346 10^3/uL (150-450); RED BLOOD COUNT 4.67 10^6/uL (4.30-6.10); WHITE BLOOD COUNT 7.1 10^3/uL (4.0-10.0)
[2021-12-02 06:38] LABS: ALBUMIN 2.7 GM/DL (3.2-5.2); ALKALINE PHOSPHATASE 91 U/L (45-117); ALT/SGPT 13 U/L (12-78); AST/SGOT 9 U/L (7-37); BILIRUBIN,TOTAL 0.3 MG/DL (0.2-1.0); BLOOD UREA NITROGEN 16 MG/DL (7-18); CALCIUM LEVEL 8.8 MG/DL (8.8-10.2); CARBON DIOXIDE LEVEL 26 MEQ/L (21-32); CHLORIDE LEVEL 106 MEQ/L (98-107); CREATININE FOR GFR 0.38 MG/DL (0.70-1.30); GLOMERULAR FILTRATION RATE > 60.0 (>49); GLUCOSE, FASTING 144 MG/DL (70-100); MAGNESIUM LEVEL 1.9 MG/DL (1.8-2.4); POTASSIUM SERUM 4.1 MEQ/L (3.5-5.1); SODIUM LEVEL 137 MEQ/L (136-145); TOTAL PROTEIN 7.1 GM/DL (6.4-8.2)
[2021-12-03 06:00] VITALS: BP 124/70; TEMP 98.6; O2SAT 97
[2021-12-03 06:17] LABS: HEMATOCRIT 33.8 % (42.0-52.0); HEMOGLOBIN 9.9 g/dl (13.5-17.5); MEAN CORPUSCULAR HGB CONC 29.3 g/dl (32.0-36.5); MEAN CORPUSCULAR VOLUME 71.6 fl (80.0-96.0); PLATELET COUNT, AUTOMATED 326 10^3/uL (150-450); RED BLOOD COUNT 4.72 10^6/uL (4.30-6.10); WHITE BLOOD COUNT 8.7 10^3/uL (4.0-10.0)
[2021-12-03 07:22] LABS: ALBUMIN 2.7 GM/DL (3.2-5.2); ALKALINE PHOSPHATASE 88 U/L (45-117); ALT/SGPT 13 U/L (12-78); AST/SGOT 7 U/L (7-37); BILIRUBIN,TOTAL 0.4 MG/DL (0.2-1.0); BLOOD UREA NITROGEN 14 MG/DL (7-18); CARBON DIOXIDE LEVEL 29 MEQ/L (21-32); CHLORIDE LEVEL 106 MEQ/L (98-107); CREATININE FOR GFR 0.34 MG/DL (0.70-1.30); GLOMERULAR FILTRATION RATE > 60.0 (>49); GLUCOSE, FASTING 124 MG/DL (70-100); MAGNESIUM LEVEL 1.9 MG/DL (1.8-2.4); POTASSIUM SERUM 4.1 MEQ/L (3.5-5.1); SODIUM LEVEL 136 MEQ/L (136-145); TOTAL PROTEIN 7.1 GM/DL (6.4-8.2)
[2021-12-04 06:00] VITALS: BP 122/69; TEMP 98.2; O2SAT 98
[2021-12-05 06:00] VITALS: BP 124/67; TEMP 97.9; O2SAT 96
[2021-12-06 06:00] VITALS: BP 118/65; TEMP 97.7; O2SAT 96
[2021-12-07 06:00] VITALS: BP 114/63; TEMP 97.7; O2SAT 97
[2021-12-08 05:19] VITALS: BP 126/63; TEMP 98.6; O2SAT 98
[2021-12-08] MEDS: NYSTATIN 100,000 UNITS/GM TOPICAL PWD 15GM TOP SCH (17:09)
[2021-12-09 05:24] VITALS: BP 104/58; TEMP 98.8; O2SAT 97
[2021-12-09 06:34] VITALS: BP 110/64
[2021-12-10 04:38] VITALS: BP 123/64; TEMP 98.6; O2SAT 94
[2021-12-11 06:08] VITALS: BP 123/66; TEMP 98.6; O2SAT 97
[2021-12-12 06:00] VITALS: BP 123/65; TEMP 98.4; O2SAT 97
[2021-12-13 06:00] VITALS: BP 125/68; TEMP 98.6; O2SAT 97
[2021-12-13 17:04] LABS: HEMATOCRIT 34.8 % (42.0-52.0); HEMOGLOBIN 10.2 g/dl (13.5-17.5); MEAN CORPUSCULAR HEMOGLOBIN 20.8 pg (27.0-33.0); MEAN CORPUSCULAR HGB CONC 29.3 g/dl (32.0-36.5); MEAN CORPUSCULAR VOLUME 70.9 fl (80.0-96.0); PLATELET COUNT, AUTOMATED 390 10^3/uL (150-450); RED BLOOD COUNT 4.91 10^6/uL (4.30-6.10); WHITE BLOOD COUNT 8.9 10^3/uL (4.0-10.0)
[2021-12-13 17:51] LABS: BLOOD UREA NITROGEN 15 MG/DL (7-18); CALCIUM LEVEL 8.3 MG/DL (8.8-10.2); CARBON DIOXIDE LEVEL 28 MEQ/L (21-32); CHLORIDE LEVEL 106 MEQ/L (98-107); CREATININE FOR GFR 0.37 MG/DL (0.70-1.30); GLOMERULAR FILTRATION RATE > 60.0 (>49); GLUCOSE, FASTING 138 MG/DL (70-100); POTASSIUM SERUM 4.3 MEQ/L (3.5-5.1); SODIUM LEVEL 138 MEQ/L (136-145)
[2021-12-13] MEDS: SENNA 8.6 MG TAB (SENOKOT) PO PRN (20:44)
[2021-12-14 06:21] VITALS: BP 123/67; TEMP 99; O2SAT 97
[2021-12-15 06:00] VITALS: BP 119/68; TEMP 98.1; O2SAT 94
[2021-12-16 05:19] VITALS: BP 116/66; TEMP 96.6; O2SAT 96
[2021-12-17 05:38] VITALS: BP 111/57; TEMP 98.1; O2SAT 94
[2021-12-18 05:42] VITALS: BP 103/63; TEMP 98.1; O2SAT 96
[2021-12-18] MEDS: COVID-19 VAC, BV (MODERNA)/PF 50 MCG/0.5 ML VIAL (EUA) IM.IMMUN ONE (11:20)
[2021-12-19 06:43] VITALS: BP 126/67; TEMP 98.8; O2SAT 97
[2021-12-20 06:00] VITALS: BP 131/67; TEMP 98.6; O2SAT 95
[2021-12-21 06:00] VITALS: BP 129/67; TEMP 97.3; O2SAT 97
[2021-12-21] MEDS: LEVEMIR (INSULIN DETEMIR) 1 UNITS/0.01ML SC SCH (20:52)
[2021-12-22 05:48] VITALS: BP 109/55; TEMP 98.1; O2SAT 97
[2021-12-23 06:12] VITALS: BP 112/59; TEMP 97.5; O2SAT 95
[2021-12-24 06:00] VITALS: BP 114/59; TEMP 98.1; O2SAT 95
[2021-12-25 05:12] VITALS: BP 116/61; TEMP 97.5; O2SAT 93
[2021-12-26 05:56] VITALS: BP 111/65; TEMP 97.2; O2SAT 100
[2021-12-26 14:00] VITALS: BP 117/69; TEMP 98.6; O2SAT 99
[2021-12-27 06:27] VITALS: BP 119/68; TEMP 97.7; O2SAT 97
[2021-12-28 06:13] VITALS: BP 129/70; TEMP 98.8; O2SAT 96
[2021-12-28 06:53] LABS: HEMATOCRIT 36.9 % (42.0-52.0); HEMOGLOBIN 10.5 g/dl (13.5-17.5); MEAN CORPUSCULAR HEMOGLOBIN 20.5 pg (27.0-33.0); MEAN CORPUSCULAR HGB CONC 28.5 g/dl (32.0-36.5); MEAN CORPUSCULAR VOLUME 72.2 fl (80.0-96.0); PLATELET COUNT, AUTOMATED 347 10^3/uL (150-450); RED BLOOD COUNT 5.11 10^6/uL (4.30-6.10); WHITE BLOOD COUNT 9.1 10^3/uL (4.0-10.0)
[2021-12-28 07:29] LABS: BLOOD UREA NITROGEN 15 MG/DL (7-18); CALCIUM LEVEL 8.6 MG/DL (8.8-10.2); CARBON DIOXIDE LEVEL 27 MEQ/L (21-32); CHLORIDE LEVEL 107 MEQ/L (98-107); GLOMERULAR FILTRATION RATE > 60.0 (>49); GLUCOSE, FASTING 148 MG/DL (70-100); POTASSIUM SERUM 4.4 MEQ/L (3.5-5.1); SODIUM LEVEL 138 MEQ/L (136-145)
[2021-12-29 05:35] VITALS: BP 124/70; TEMP 97.2; O2SAT 98
[2021-12-30] MEDS: KETOCONAZOLE 2% CREAM TOP PRN (08:40)
[2022-01-01 05:40] VITALS: BP 130/70; TEMP 99; O2SAT 97
[2022-01-02 06:00] VITALS: BP 127/69; TEMP 96.8; O2SAT 93
[2022-01-02 21:30] VITALS: BP 128/74; TEMP 101.1; O2SAT 93
[2022-01-02] MEDS: NS 1,000 ML IV ONE ×2 (21:52→22:30)
[2022-01-02 22:00] VITALS: BP 128/74; TEMP 101.1; O2SAT 93
[2022-01-02 22:30] VITALS: BP 120/70; TEMP 101.1; O2SAT 93
[2022-01-02 22:37] LABS: BASO # 0.1 10^3/uL (0.0-0.2); BASO % 0.3 % (0.0-1.0); EOS # 0.2 10^3/uL (0.0-0.5); HEMATOCRIT 35.4 % (42.0-52.0); HEMOGLOBIN 10.1 g/dl (13.5-17.5); LYMPH # 1.1 10^3/uL (1.5-5.0); MEAN CORPUSCULAR HEMOGLOBIN 20.7 pg (27.0-33.0); MEAN CORPUSCULAR HGB CONC 28.5 g/dl (32.0-36.5); MEAN CORPUSCULAR VOLUME 72.4 fl (80.0-96.0); MONO # 0.7 10^3/uL (0.0-0.8); MONO % 4.6 % (2.0-8.0); NEUTROPHILS # 13.8 10^3/uL (1.5-8.5); NEUTROPHILS % 86.5 % (36.0-66.0); PLATELET COUNT, AUTOMATED 330 10^3/uL (150-450); RED BLOOD COUNT 4.89 10^6/uL (4.30-6.10)
[2022-01-02 22:54] LABS: VENOUS BASE EXCESS 0.8 (-2.0-2.0); VENOUS HCO3 24.2 MEQ/L (23.0-27.0); VENOUS O2 SATURATION 99.1 % (60.0-80.0); VENOUS PARTIAL PRESSURE CO2 34.3 mmHg (38.0-50.0); VENOUS PARTIAL PRESSURE O2 177.6 mmHg (30.0-50.0); VENOUS PH 7.466 UNITS (7.330-7.430); VENOUS STANDARD HCO3 25.2 MEQ/L; VENOUS TOTAL CO2 25.2 MEQ/L (24.0-28.0)
[2022-01-02 23:00] VITALS: BP 120/70; TEMP 101.1; O2SAT 93
[2022-01-02 23:04] LABS: BLOOD UREA NITROGEN 21 MG/DL (7-18); CALCIUM LEVEL 8.1 MG/DL (8.8-10.2); CARBON DIOXIDE LEVEL 24 MEQ/L (21-32); CHLORIDE LEVEL 107 MEQ/L (98-107); GLOMERULAR FILTRATION RATE > 60.0 (>49); GLUCOSE, FASTING 188 MG/DL (70-100); MAGNESIUM LEVEL 1.7 MG/DL (1.8-2.4); SODIUM LEVEL 137 MEQ/L (136-145)
[2022-01-03 00:30] VITALS: BP 102/58; TEMP 100; O2SAT 95
[2022-01-03] MEDS: CEFEPIME HCL 1 GM in D5W MINI-BAG PLUS 50 ML IV SCH (00:43)
[2022-01-03] MEDS: NS 1,000 ML IV SCH (00:46)
[2022-01-03 01:30] VITALS: BP 107/62; TEMP 98.6; O2SAT 94
[2022-01-03] MEDS: VANCOMYCIN HCL 1,000 MG, VIAL MATE ADAPTER 1 EACH in NS 250 ML IV ONE ×2 (01:35→02:45)
[2022-01-03 06:00] VITALS: BP 109/65; TEMP 98.4; O2SAT 95
[2022-01-03] MEDS: VANCOMYCIN HCL 1,000 MG, VIAL MATE ADAPTER 1 EACH in NS 250 ML IV SCH (08:25)
[2022-01-03 09:46] LABS: HEMATOCRIT 31.7 % (42.0-52.0); HEMOGLOBIN 9.3 g/dl (13.5-17.5); MEAN CORPUSCULAR HEMOGLOBIN 20.6 pg (27.0-33.0); MEAN CORPUSCULAR HGB CONC 29.3 g/dl (32.0-36.5); MEAN CORPUSCULAR VOLUME 70.1 fl (80.0-96.0); PLATELET COUNT, AUTOMATED 284 10^3/uL (150-450); RED BLOOD COUNT 4.52 10^6/uL (4.30-6.10); WHITE BLOOD COUNT 11.6 10^3/uL (4.0-10.0)
[2022-01-03 10:17] LABS: ALBUMIN 2.3 GM/DL (3.2-5.2); ALKALINE PHOSPHATASE 76 U/L (45-117); ALT/SGPT 14 U/L (12-78); AST/SGOT 5 U/L (7-37); BILIRUBIN,TOTAL 0.6 MG/DL (0.2-1.0); BLOOD UREA NITROGEN 17 MG/DL (7-18); CARBON DIOXIDE LEVEL 24 MEQ/L (21-32); CHLORIDE LEVEL 110 MEQ/L (98-107); CREATININE FOR GFR 0.34 MG/DL (0.70-1.30); GLOMERULAR FILTRATION RATE > 60.0 (>49); GLUCOSE, FASTING 150 MG/DL (70-100); POTASSIUM SERUM 3.6 MEQ/L (3.5-5.1); SODIUM LEVEL 138 MEQ/L (136-145); TOTAL PROTEIN 6.7 GM/DL (6.4-8.2)
[2022-01-03 14:00] VITALS: BP 114/62; TEMP 99.3; O2SAT 93
[2022-01-03 22:00] VITALS: BP 125/72; TEMP 98.1; O2SAT 96
[2022-01-04 06:00] VITALS: BP 136/72; TEMP 97.9; O2SAT 98
[2022-01-04 06:05] LABS: HEMATOCRIT 31.5 % (42.0-52.0); HEMOGLOBIN 9.1 g/dl (13.5-17.5); MEAN CORPUSCULAR HEMOGLOBIN 20.7 pg (27.0-33.0); MEAN CORPUSCULAR HGB CONC 28.9 g/dl (32.0-36.5); MEAN CORPUSCULAR VOLUME 71.6 fl (80.0-96.0); PLATELET COUNT, AUTOMATED 266 10^3/uL (150-450); WHITE BLOOD COUNT 7.1 10^3/uL (4.0-10.0)
[2022-01-04 06:46] LABS: BLOOD UREA NITROGEN 9 MG/DL (7-18); CALCIUM LEVEL 8.1 MG/DL (8.8-10.2); CARBON DIOXIDE LEVEL 26 MEQ/L (21-32); CHLORIDE LEVEL 112 MEQ/L (98-107); CREATININE FOR GFR 0.34 MG/DL (0.70-1.30); GLOMERULAR FILTRATION RATE > 60.0 (>49); GLUCOSE, FASTING 146 MG/DL (70-100); POTASSIUM SERUM 3.6 MEQ/L (3.5-5.1); SODIUM LEVEL 143 MEQ/L (136-145)
[2022-01-04 14:00] VITALS: BP 130/66; TEMP 98.7; O2SAT 97
[2022-01-04 22:00] VITALS: BP 132/66; TEMP 98.1; O2SAT 95
[2022-01-05 06:00] VITALS: BP 132/68; TEMP 97.9; O2SAT 96
[2022-01-05 06:55] LABS: HEMATOCRIT 30.5 % (42.0-52.0); MEAN CORPUSCULAR HEMOGLOBIN 20.5 pg (27.0-33.0); MEAN CORPUSCULAR HGB CONC 29.5 g/dl (32.0-36.5); MEAN CORPUSCULAR VOLUME 69.6 fl (80.0-96.0); PLATELET COUNT, AUTOMATED 302 10^3/uL (150-450); RED BLOOD COUNT 4.38 10^6/uL (4.30-6.10); WHITE BLOOD COUNT 7.4 10^3/uL (4.0-10.0)
[2022-01-05 07:29] LABS: BLOOD UREA NITROGEN 9 MG/DL (7-18); CALCIUM LEVEL 7.9 MG/DL (8.8-10.2); CARBON DIOXIDE LEVEL 25 MEQ/L (21-32); CHLORIDE LEVEL 111 MEQ/L (98-107); CREATININE FOR GFR 0.37 MG/DL (0.70-1.30); GLOMERULAR FILTRATION RATE > 60.0 (>49); GLUCOSE, FASTING 148 MG/DL (70-100); POTASSIUM SERUM 3.8 MEQ/L (3.5-5.1); SODIUM LEVEL 140 MEQ/L (136-145)
[2022-01-05 10:46] LABS: FERRITIN 43 NG/ML (26-388); IRON (FE) 16 UG/DL (65-175); PERCENT SATURATION 6.1 % (19.7-50.0); TOTAL IRON BINDING CAPACITY 263 UG/DL (250-450)
[2022-01-05] MEDS: LevoFLOXacin 750 MG TABLET PO SCH (12:08)
[2022-01-05] MEDS: IRON SUCROSE 300 MG in NS 250 ML IV ONE (14:23)
[2022-01-05] MEDS: LEVEMIR (INSULIN DETEMIR) 1 UNITS/0.01ML SC SCH (21:31)
[2022-01-06 05:36] VITALS: BP 134/73; TEMP 97.9; O2SAT 97
[2022-01-06 06:29] LABS: HEMATOCRIT 32.7 % (42.0-52.0); HEMOGLOBIN 9.6 g/dl (13.5-17.5); MEAN CORPUSCULAR HEMOGLOBIN 20.9 pg (27.0-33.0); MEAN CORPUSCULAR HGB CONC 29.4 g/dl (32.0-36.5); MEAN CORPUSCULAR VOLUME 71.1 fl (80.0-96.0); PLATELET COUNT, AUTOMATED 348 10^3/uL (150-450); WHITE BLOOD COUNT 7.7 10^3/uL (4.0-10.0)
[2022-01-06 06:59] LABS: BLOOD UREA NITROGEN 8 MG/DL (7-18); CALCIUM LEVEL 8.4 MG/DL (8.8-10.2); CARBON DIOXIDE LEVEL 29 MEQ/L (21-32); CHLORIDE LEVEL 109 MEQ/L (98-107); CREATININE FOR GFR 0.29 MG/DL (0.70-1.30); GLOMERULAR FILTRATION RATE > 60.0 (>49); GLUCOSE, FASTING 119 MG/DL (70-100); SODIUM LEVEL 141 MEQ/L (136-145)
[2022-01-06] MEDS: ENOXAPARIN 40MG/0.4ML SYRINGE (J1650 PER 10MG) SC SCH (08:08)
[2022-01-07 06:56] LABS: HEMATOCRIT 33.8 % (42.0-52.0); HEMOGLOBIN 9.9 g/dl (13.5-17.5); MEAN CORPUSCULAR HEMOGLOBIN 20.6 pg (27.0-33.0); MEAN CORPUSCULAR HGB CONC 29.3 g/dl (32.0-36.5); MEAN CORPUSCULAR VOLUME 70.3 fl (80.0-96.0); PLATELET COUNT, AUTOMATED 354 10^3/uL (150-450); RED BLOOD COUNT 4.81 10^6/uL (4.30-6.10); WHITE BLOOD COUNT 8.9 10^3/uL (4.0-10.0)
[2022-01-07 06:59] VITALS: BP 143/80; TEMP 98.8; O2SAT 96
[2022-01-07 07:35] LABS: BLOOD UREA NITROGEN 9 MG/DL (7-18); CALCIUM LEVEL 8.5 MG/DL (8.8-10.2); CARBON DIOXIDE LEVEL 29 MEQ/L (21-32); CHLORIDE LEVEL 108 MEQ/L (98-107); GLOMERULAR FILTRATION RATE > 60.0 (>49); GLUCOSE, FASTING 123 MG/DL (70-100); POTASSIUM SERUM 4.2 MEQ/L (3.5-5.1); SODIUM LEVEL 141 MEQ/L (136-145)
[2022-01-08 05:44] LABS: HEMATOCRIT 32.4 % (42.0-52.0); HEMOGLOBIN 9.4 g/dl (13.5-17.5); MEAN CORPUSCULAR HEMOGLOBIN 20.8 pg (27.0-33.0); MEAN CORPUSCULAR VOLUME 71.5 fl (80.0-96.0); PLATELET COUNT, AUTOMATED 344 10^3/uL (150-450); RED BLOOD COUNT 4.53 10^6/uL (4.30-6.10); WHITE BLOOD COUNT 10.1 10^3/uL (4.0-10.0)
[2022-01-08 06:00] VITALS: BP 114/65; TEMP 98.2; O2SAT 95
[2022-01-08 06:14] LABS: BLOOD UREA NITROGEN 12 MG/DL (7-18); CALCIUM LEVEL 8.7 MG/DL (8.8-10.2); CARBON DIOXIDE LEVEL 28 MEQ/L (21-32); CHLORIDE LEVEL 107 MEQ/L (98-107); CREATININE FOR GFR 0.37 MG/DL (0.70-1.30); GLOMERULAR FILTRATION RATE > 60.0 (>49); GLUCOSE, FASTING 131 MG/DL (70-100); POTASSIUM SERUM 4.2 MEQ/L (3.5-5.1); SODIUM LEVEL 139 MEQ/L (136-145)
[2022-01-09 06:49] VITALS: BP 112/63; TEMP 97.7; O2SAT 97
[2022-01-09 06:55] LABS: HEMATOCRIT 33.9 % (42.0-52.0); MEAN CORPUSCULAR HGB CONC 29.5 g/dl (32.0-36.5); MEAN CORPUSCULAR VOLUME 71.2 fl (80.0-96.0); PLATELET COUNT, AUTOMATED 371 10^3/uL (150-450); RED BLOOD COUNT 4.76 10^6/uL (4.30-6.10); WHITE BLOOD COUNT 9.4 10^3/uL (4.0-10.0)
[2022-01-09 07:31] LABS: BLOOD UREA NITROGEN 18 MG/DL (7-18); CALCIUM LEVEL 8.9 MG/DL (8.8-10.2); CARBON DIOXIDE LEVEL 28 MEQ/L (21-32); CHLORIDE LEVEL 107 MEQ/L (98-107); CREATININE FOR GFR 0.34 MG/DL (0.70-1.30); GLOMERULAR FILTRATION RATE > 60.0 (>49); GLUCOSE, FASTING 138 MG/DL (70-100); POTASSIUM SERUM 4.2 MEQ/L (3.5-5.1); SODIUM LEVEL 139 MEQ/L (136-145)
[2022-01-10 06:00] VITALS: BP 113/64; TEMP 97.2; O2SAT 97
[2022-01-10 08:03] LABS: HEMATOCRIT 35.9 % (42.0-52.0); HEMOGLOBIN 10.4 g/dl (13.5-17.5); MEAN CORPUSCULAR VOLUME 72.4 fl (80.0-96.0); PLATELET COUNT, AUTOMATED 384 10^3/uL (150-450); RED BLOOD COUNT 4.96 10^6/uL (4.30-6.10); WHITE BLOOD COUNT 9.1 10^3/uL (4.0-10.0)
[2022-01-10 08:31] LABS: BLOOD UREA NITROGEN 17 MG/DL (7-18); CARBON DIOXIDE LEVEL 28 MEQ/L (21-32); CHLORIDE LEVEL 106 MEQ/L (98-107); CREATININE FOR GFR 0.46 MG/DL (0.70-1.30); GLOMERULAR FILTRATION RATE > 60.0 (>49); GLUCOSE, FASTING 145 MG/DL (70-100); POTASSIUM SERUM 4.4 MEQ/L (3.5-5.1); SODIUM LEVEL 137 MEQ/L (136-145)
[2022-01-11 06:00] VITALS: BP 122/70; TEMP 97.9; O2SAT 97
[2022-01-12 06:00] VITALS: BP 121/63; TEMP 97.5; O2SAT 96
[2022-01-12 06:20] LABS: HEMATOCRIT 36.4 % (42.0-52.0); HEMOGLOBIN 10.3 g/dl (13.5-17.5); MEAN CORPUSCULAR HEMOGLOBIN 20.8 pg (27.0-33.0); MEAN CORPUSCULAR HGB CONC 28.3 g/dl (32.0-36.5); MEAN CORPUSCULAR VOLUME 73.5 fl (80.0-96.0); PLATELET COUNT, AUTOMATED 356 10^3/uL (150-450); RED BLOOD COUNT 4.95 10^6/uL (4.30-6.10); WHITE BLOOD COUNT 8.7 10^3/uL (4.0-10.0)
[2022-01-12 06:52] LABS: BLOOD UREA NITROGEN 16 MG/DL (7-18); CALCIUM LEVEL 8.5 MG/DL (8.8-10.2); CARBON DIOXIDE LEVEL 29 MEQ/L (21-32); CHLORIDE LEVEL 105 MEQ/L (98-107); GLOMERULAR FILTRATION RATE > 60.0 (>49); GLUCOSE, FASTING 121 MG/DL (70-100); POTASSIUM SERUM 4.1 MEQ/L (3.5-5.1); SODIUM LEVEL 140 MEQ/L (136-145)
[2022-01-13 08:15] VITALS: BP 122/69; TEMP 98.8; O2SAT 98
[2022-01-14 06:00] VITALS: BP 115/63; TEMP 98.6; O2SAT 94
[2022-01-14 07:38] VITALS: BP 112/70; TEMP 98.8; O2SAT 98
[2022-01-14 12:10] VITALS: BP 114/70; TEMP 98.6; O2SAT 98
[2022-01-15 06:00] VITALS: BP 157/79; TEMP 97.7; O2SAT 95
[2022-01-15 08:10] LABS: HEMATOCRIT 38.2 % (42.0-52.0); HEMOGLOBIN 10.7 g/dl (13.5-17.5); MEAN CORPUSCULAR HEMOGLOBIN 20.7 pg (27.0-33.0); MEAN CORPUSCULAR VOLUME 73.7 fl (80.0-96.0); PLATELET COUNT, AUTOMATED 326 10^3/uL (150-450); RED BLOOD COUNT 5.18 10^6/uL (4.30-6.10); WHITE BLOOD COUNT 8.3 10^3/uL (4.0-10.0)
[2022-01-15 08:39] LABS: BLOOD UREA NITROGEN 18 MG/DL (7-18); CALCIUM LEVEL 8.8 MG/DL (8.8-10.2); CARBON DIOXIDE LEVEL 29 MEQ/L (21-32); CHLORIDE LEVEL 107 MEQ/L (98-107); CREATININE FOR GFR 0.38 MG/DL (0.70-1.30); GLOMERULAR FILTRATION RATE > 60.0 (>49); GLUCOSE, FASTING 112 MG/DL (70-100); POTASSIUM SERUM 4.4 MEQ/L (3.5-5.1); SODIUM LEVEL 140 MEQ/L (136-145)
[2022-01-16 06:00] VITALS: BP_SYST 116; BP_SYST 136; BP_DIAS 63; BP_DIAS 72; TEMP 96.8; TEMP 98.1; O2SAT 96; O2SAT 97
[2022-01-17 06:00] VITALS: BP 121/69; TEMP 98.4; O2SAT 99
[2022-01-18 06:00] VITALS: BP 119/57; TEMP 97.7; O2SAT 96
[2022-01-18 06:45] LABS: HEMATOCRIT 35.9 % (42.0-52.0); HEMOGLOBIN 10.4 g/dl (13.5-17.5); MEAN CORPUSCULAR HEMOGLOBIN 21.1 pg (27.0-33.0); MEAN CORPUSCULAR VOLUME 72.8 fl (80.0-96.0); PLATELET COUNT, AUTOMATED 306 10^3/uL (150-450); RED BLOOD COUNT 4.93 10^6/uL (4.30-6.10); WHITE BLOOD COUNT 7.3 10^3/uL (4.0-10.0)
[2022-01-18 07:17] LABS: BLOOD UREA NITROGEN 22 MG/DL (7-18); CARBON DIOXIDE LEVEL 29 MEQ/L (21-32); CHLORIDE LEVEL 106 MEQ/L (98-107); CREATININE FOR GFR 0.34 MG/DL (0.70-1.30); GLOMERULAR FILTRATION RATE > 60.0 (>49); GLUCOSE, FASTING 141 MG/DL (70-100); POTASSIUM SERUM 4.3 MEQ/L (3.5-5.1); SODIUM LEVEL 137 MEQ/L (136-145)
[2022-01-19 06:25] VITALS: BP 107/49; TEMP 98.2; O2SAT 98
[2022-01-20 05:05] VITALS: BP 129/67; TEMP 98.1; O2SAT 97
[2022-01-21 06:00] VITALS: BP 128/70; TEMP 98.1; O2SAT 97
[2022-01-21 07:33] LABS: HEMATOCRIT 35.8 % (42.0-52.0); HEMOGLOBIN 10.4 g/dl (13.5-17.5); MEAN CORPUSCULAR HEMOGLOBIN 21.4 pg (27.0-33.0); MEAN CORPUSCULAR HGB CONC 29.1 g/dl (32.0-36.5); MEAN CORPUSCULAR VOLUME 73.8 fl (80.0-96.0); PLATELET COUNT, AUTOMATED 313 10^3/uL (150-450); RED BLOOD COUNT 4.85 10^6/uL (4.30-6.10); WHITE BLOOD COUNT 6.9 10^3/uL (4.0-10.0)
[2022-01-21 08:06] LABS: BLOOD UREA NITROGEN 16 MG/DL (7-18); CALCIUM LEVEL 8.7 MG/DL (8.8-10.2); CARBON DIOXIDE LEVEL 27 MEQ/L (21-32); CHLORIDE LEVEL 106 MEQ/L (98-107); GLOMERULAR FILTRATION RATE > 60.0 (>49); GLUCOSE, FASTING 169 MG/DL (70-100); POTASSIUM SERUM 4.2 MEQ/L (3.5-5.1); SODIUM LEVEL 137 MEQ/L (136-145)
[2022-01-22 06:00] VITALS: BP 123/71; TEMP 98.6; O2SAT 98
[2022-01-23 06:00] VITALS: BP 131/62; TEMP 98.6; O2SAT 96
[2022-01-24 06:00] VITALS: BP 123/67; TEMP 98.2; O2SAT 98
[2022-01-24 06:20] LABS: HEMATOCRIT 37.9 % (42.0-52.0); HEMOGLOBIN 10.7 g/dl (13.5-17.5); MEAN CORPUSCULAR HEMOGLOBIN 21.5 pg (27.0-33.0); MEAN CORPUSCULAR HGB CONC 28.2 g/dl (32.0-36.5); MEAN CORPUSCULAR VOLUME 76.3 fl (80.0-96.0); PLATELET COUNT, AUTOMATED 309 10^3/uL (150-450); RED BLOOD COUNT 4.97 10^6/uL (4.30-6.10); WHITE BLOOD COUNT 6.9 10^3/uL (4.0-10.0)
[2022-01-24 06:52] LABS: BLOOD UREA NITROGEN 24 MG/DL (7-18); CALCIUM LEVEL 8.6 MG/DL (8.8-10.2); CARBON DIOXIDE LEVEL 28 MEQ/L (21-32); CHLORIDE LEVEL 107 MEQ/L (98-107); CREATININE FOR GFR 0.44 MG/DL (0.70-1.30); GLOMERULAR FILTRATION RATE > 60.0 (>49); GLUCOSE, FASTING 139 MG/DL (70-100); POTASSIUM SERUM 4.1 MEQ/L (3.5-5.1); SODIUM LEVEL 138 MEQ/L (136-145)
[2022-01-25 04:00] VITALS: BP 123/65; TEMP 97.7; O2SAT 96
[2022-01-26 06:00] VITALS: BP 124/66; TEMP 98.2; O2SAT 96
[2022-01-27 06:10] VITALS: BP 124/67; TEMP 98.1; O2SAT 97
[2022-01-28 04:43] VITALS: BP 126/67; TEMP 97.9; O2SAT 97
[2022-01-29 06:15] VITALS: BP 123/69; TEMP 99.5; O2SAT 94
[2022-01-30 05:31] VITALS: BP 113/65; TEMP 98.1; O2SAT 96
[2022-01-31 06:39] VITALS: BP 120/69; TEMP 100; O2SAT 97
[2022-01-31 07:42] VITALS: TEMP 98.1
[2022-02-01 06:06] VITALS: BP 120/65; TEMP 96.6; O2SAT 96
[2022-02-01 10:37] LABS: HEMATOCRIT 38.2 % (42.0-52.0); HEMOGLOBIN 11.1 g/dl (13.5-17.5); MEAN CORPUSCULAR HEMOGLOBIN 21.6 pg (27.0-33.0); MEAN CORPUSCULAR HGB CONC 29.1 g/dl (32.0-36.5); MEAN CORPUSCULAR VOLUME 74.2 fl (80.0-96.0); PLATELET COUNT, AUTOMATED 256 10^3/uL (150-450); RED BLOOD COUNT 5.15 10^6/uL (4.30-6.10); WHITE BLOOD COUNT 5.8 10^3/uL (4.0-10.0)
[2022-02-01 12:46] LABS: BLOOD UREA NITROGEN 17 MG/DL (7-18); CALCIUM LEVEL 8.5 MG/DL (8.8-10.2); CARBON DIOXIDE LEVEL 27 MEQ/L (21-32); CHLORIDE LEVEL 105 MEQ/L (98-107); FERRITIN 92 NG/ML (26-388); GLOMERULAR FILTRATION RATE > 60.0 (>49); GLUCOSE, FASTING 162 MG/DL (70-100); IRON (FE) 19 UG/DL (65-175); PERCENT SATURATION 7.2 % (19.7-50.0); POTASSIUM SERUM 4.2 MEQ/L (3.5-5.1); SODIUM LEVEL 139 MEQ/L (136-145); TOTAL IRON BINDING CAPACITY 264 UG/DL (250-450)
[2022-02-01 14:02] LABS: FOLATE 20.1 NG/ML (>5.4); VITAMIN B12 LEVEL 545 PG/ML (247-911)
[2022-02-01] MEDS: RIVAROXABAN 10MG TAB (XARELTO) PO SCH (17:08)
[2022-02-02 06:00] VITALS: BP 132/71; TEMP 98.2; O2SAT 97
[2022-02-03 06:38] VITALS: BP 119/64; TEMP 98.1; O2SAT 97
[2022-02-03 09:00] VITALS: BP 129/74; TEMP 98.1; O2SAT 98
[2022-02-05 06:00] VITALS: BP 120/61; TEMP 98.1; O2SAT 96
[2022-02-06 06:00] VITALS: BP 118/63; TEMP 97.9; O2SAT 95
[2022-02-06] MEDS: NEOSPORIN TOP OINT 15GM TOP PRN (06:29)
[2022-02-07 06:00] VITALS: BP 135/69; TEMP 97.5; O2SAT 97
[2022-02-07] MEDS: FERROUS SULFATE 325MG TAB PO SCH (17:45)
[2022-02-08 06:00] VITALS: BP 122/65; TEMP 97.9; O2SAT 96
[2022-02-08 06:06] LABS: BASO # 0.1 10^3/uL (0.0-0.2); BASO % 0.9 % (0.0-1.0); EOS # 0.5 10^3/uL (0.0-0.5); EOS % 5.4 % (0.0-3.0); HEMATOCRIT 37.2 % (42.0-52.0); HEMOGLOBIN 10.8 g/dl (13.5-17.5); LYMPH % 22.4 % (24.0-44.0); MEAN CORPUSCULAR HEMOGLOBIN 21.5 pg (27.0-33.0); MONO # 0.5 10^3/uL (0.0-0.8); NEUTROPHILS # 5.7 10^3/uL (1.5-8.5); NEUTROPHILS % 64.4 % (36.0-66.0); PLATELET COUNT, AUTOMATED 335 10^3/uL (150-450); RED BLOOD COUNT 5.03 10^6/uL (4.30-6.10); WHITE BLOOD COUNT 8.8 10^3/uL (4.0-10.0)
[2022-02-08 10:21] LABS: HEMATOCRIT 38.4 % (42.0-52.0); HEMOGLOBIN 11.1 g/dl (13.5-17.5); MEAN CORPUSCULAR HEMOGLOBIN 21.3 pg (27.0-33.0); MEAN CORPUSCULAR HGB CONC 28.9 g/dl (32.0-36.5); MEAN CORPUSCULAR VOLUME 73.7 fl (80.0-96.0); PLATELET COUNT, AUTOMATED 358 10^3/uL (150-450); RED BLOOD COUNT 5.21 10^6/uL (4.30-6.10); WHITE BLOOD COUNT 8.9 10^3/uL (4.0-10.0)
[2022-02-08 11:00] LABS: BLOOD UREA NITROGEN 14 MG/DL (7-18); CALCIUM LEVEL 8.2 MG/DL (8.8-10.2); CARBON DIOXIDE LEVEL 28 MEQ/L (21-32); CHLORIDE LEVEL 107 MEQ/L (98-107); GLOMERULAR FILTRATION RATE > 60.0 (>49); GLUCOSE, FASTING 152 MG/DL (70-100); POTASSIUM SERUM 4.3 MEQ/L (3.5-5.1); SODIUM LEVEL 138 MEQ/L (136-145)
[2022-02-09 06:00] VITALS: BP 125/65; TEMP 98.1; O2SAT 94
[2022-02-10 05:52] VITALS: BP 124/69; TEMP 98.2; O2SAT 97
[2022-02-10 08:00] VITALS: BP 126/65; TEMP 97.9; O2SAT 98
[2022-02-11 00:53] VITALS: BP 104/58; TEMP 98.1; O2SAT 97
[2022-02-11 07:50] VITALS: BP 108/64; TEMP 98.2; O2SAT 97
[2022-02-11 13:57] VITALS: BP 110/80; TEMP 98.1; O2SAT 96
[2022-02-12 06:00] VITALS: BP 117/69; TEMP 98.1; O2SAT 93
[2022-02-13 06:08] VITALS: BP 112/68; TEMP 98.2; O2SAT 96
[2022-02-14 06:38] VITALS: BP 122/62; TEMP 98.1; O2SAT 96
[2022-02-14] MEDS: INSULIN LISPRO (NovoLOG) PER UNIT SC SCH (08:41)
[2022-02-15 05:53] VITALS: BP 122/63; TEMP 98.2; O2SAT 96
[2022-02-15 10:18] LABS: HEMATOCRIT 39.5 % (42.0-52.0); HEMOGLOBIN 11.4 g/dl (13.5-17.5); MEAN CORPUSCULAR HEMOGLOBIN 21.6 pg (27.0-33.0); MEAN CORPUSCULAR HGB CONC 28.9 g/dl (32.0-36.5); MEAN CORPUSCULAR VOLUME 74.7 fl (80.0-96.0); PLATELET COUNT, AUTOMATED 352 10^3/uL (150-450); RED BLOOD COUNT 5.29 10^6/uL (4.30-6.10); WHITE BLOOD COUNT 10.1 10^3/uL (4.0-10.0)
[2022-02-15 11:04] LABS: BLOOD UREA NITROGEN 19 MG/DL (9-23); CALCIUM LEVEL 8.2 MG/DL (8.3-10.6); CARBON DIOXIDE LEVEL 28 MMOL/L (20-31); CHLORIDE LEVEL 104 MMOL/L (98-107); CREATININE FOR GFR 0.37 MG/DL (0.70-1.30); GLOMERULAR FILTRATION RATE > 60.0 (>49); GLUCOSE, FASTING 166 MG/DL (74-106); POTASSIUM SERUM 4.4 MMOL/L (3.5-5.1); SODIUM LEVEL 140 MMOL/L (136-145)
[2022-02-15 15:54] VITALS: BP 120/62; TEMP 97.4; O2SAT 94
[2022-02-15] MEDS: INSULIN LISPRO (NovoLOG) PER UNIT SC SCH (17:52)
[2022-02-16 06:34] VITALS: BP 120/63; TEMP 98.2; O2SAT 96
[2022-02-17 06:18] VITALS: BP 119/63; TEMP 98.2; O2SAT 96
[2022-02-18 06:58] VITALS: BP 108/54; TEMP 98.2; O2SAT 95
[2022-02-19 06:00] VITALS: BP 127/72; TEMP 98.1; O2SAT 95
[2022-02-20 06:00] VITALS: BP 124/71; TEMP 98.1; O2SAT 96
[2022-02-21 06:00] VITALS: BP 122/73; TEMP 97.9; O2SAT 97
[2022-02-22 06:00] VITALS: BP 125/69; TEMP 98.1; O2SAT 95
[2022-02-22 06:52] LABS: HEMATOCRIT 38.3 % (42.0-52.0); HEMOGLOBIN 11.3 g/dl (13.5-17.5); MEAN CORPUSCULAR HGB CONC 29.5 g/dl (32.0-36.5); MEAN CORPUSCULAR VOLUME 74.7 fl (80.0-96.0); PLATELET COUNT, AUTOMATED 314 10^3/uL (150-450); RED BLOOD COUNT 5.13 10^6/uL (4.30-6.10); WHITE BLOOD COUNT 7.1 10^3/uL (4.0-10.0)
[2022-02-22 07:22] LABS: BLOOD UREA NITROGEN 9 MG/DL (9-23); CALCIUM LEVEL 8.5 MG/DL (8.3-10.6); CARBON DIOXIDE LEVEL 25 MMOL/L (20-31); CHLORIDE LEVEL 104 MMOL/L (98-107); CREATININE FOR GFR 0.35 MG/DL (0.70-1.30); GLOMERULAR FILTRATION RATE > 60.0 (>49); GLUCOSE, FASTING 135 MG/DL (74-106); POTASSIUM SERUM 4.3 MMOL/L (3.5-5.1); SODIUM LEVEL 139 MMOL/L (136-145)
[2022-02-23 06:00] VITALS: BP 119/67; TEMP 97.9; O2SAT 96
[2022-02-24 06:00] VITALS: BP 120/60; TEMP 98.1; O2SAT 93
[2022-02-25 06:00] VITALS: BP 117/65; TEMP 98.1; O2SAT 92
[2022-02-26 06:00] VITALS: BP 117/62; TEMP 97.1; O2SAT 93
[2022-02-27 06:00] VITALS: BP 121/64; TEMP 97.7; O2SAT 98
[2022-02-28 06:00] VITALS: BP 128/66; TEMP 98.2; O2SAT 95
[2022-03-01 06:00] VITALS: BP 122/79; TEMP 98.2; O2SAT 96
[2022-03-02 06:00] VITALS: BP 128/71; TEMP 97.9; O2SAT 96
[2022-03-04 06:16] VITALS: BP 116/61; TEMP 98.2; O2SAT 97
[2022-03-05 06:00] VITALS: BP 125/73; TEMP 98.1; O2SAT 96
[2022-03-06 06:00] VITALS: BP 133/68; TEMP 98.1; O2SAT 98
[2022-03-07 06:00] VITALS: BP 133/70; TEMP 97; O2SAT 97
[2022-03-08 06:00] VITALS: BP 134/70; TEMP 98.1; O2SAT 97
[2022-03-09 06:00] VITALS: BP 125/74; TEMP 98.4; O2SAT 94
[2022-03-09] MEDS: MIRALAX *UNIT DOSE* 17GM PACKET PO PRN (20:13)
[2022-03-10 04:57] VITALS: BP 131/68; TEMP 97.7; O2SAT 97
[2022-03-11 06:00] VITALS: BP 121/74; TEMP 97.9; O2SAT 96
[2022-03-12 05:26] VITALS: BP 123/66; TEMP 97.7; O2SAT 93
[2022-03-13 06:14] VITALS: BP 123/71; TEMP 98.6; O2SAT 96
[2022-03-14 06:00] VITALS: BP 124/64; TEMP 98.1; O2SAT 97
[2022-03-15 06:11] VITALS: BP 126/63; TEMP 98.2; O2SAT 96
[2022-03-16 05:56] VITALS: BP 114/62; TEMP 98.2; O2SAT 97
[2022-03-16 20:00] VITALS: BP 123/67; TEMP 98.6; O2SAT 95
[2022-03-18 06:00] VITALS: BP 125/64; TEMP 98.1; O2SAT 96
[2022-03-19 06:10] VITALS: BP 127/66; TEMP 98.6; O2SAT 94
[2022-03-20 07:04] VITALS: BP 129/65; TEMP 98.8; O2SAT 96
[2022-03-22 06:17] VITALS: BP 132/71; TEMP 97.5; O2SAT 96
[2022-03-23 05:55] VITALS: BP 113/65; TEMP 98.2; O2SAT 96
[2022-03-24 06:15] VITALS: BP 114/65; TEMP 98.2; O2SAT 96
[2022-03-25 06:32] VITALS: BP 116/66; TEMP 98.2; O2SAT 96
[2022-03-26 06:51] VITALS: BP 132/64; TEMP 98.8; O2SAT 96
[2022-03-27 06:00] VITALS: BP 126/76; TEMP 98.8; O2SAT 97
[2022-03-28 06:00] VITALS: BP 116/66; TEMP 98.1; O2SAT 93
[2022-03-28] MEDS: VANICREAM MOISTURIZING SKIN CREAM 113GM TUBE TOP PRN (13:41)
[2022-03-29 05:56] VITALS: BP 120/64; TEMP 97.3; O2SAT 97
[2022-03-30 06:42] VITALS: BP 118/75; TEMP 98.1; O2SAT 97
[2022-03-31 00:12] VITALS: BP 115/71; TEMP 98.4; O2SAT 95
[2022-04-01 06:40] VITALS: BP 117/67; TEMP 98.1; O2SAT 96
[2022-04-02 06:18] VITALS: BP 118/62; TEMP 97.7; O2SAT 96
[2022-04-03 06:27] VITALS: BP 112/82; TEMP 98.2; O2SAT 96
[2022-04-04 06:00] VITALS: BP 124/68; TEMP 97.7; O2SAT 97
[2022-04-04 11:39] LABS: BASO # 0.1 10^3/uL (0.0-0.2); BASO % 1.1 % (0.0-1.0); EOS # 0.8 10^3/uL (0.0-0.5); EOS % 9.4 % (0.0-3.0); HEMATOCRIT 38.9 % (42.0-52.0); HEMOGLOBIN 11.6 g/dl (13.5-17.5); LYMPH # 1.7 10^3/uL (1.5-5.0); LYMPH % 21.2 % (24.0-44.0); MEAN CORPUSCULAR HEMOGLOBIN 22.8 pg (27.0-33.0); MEAN CORPUSCULAR HGB CONC 29.8 g/dl (32.0-36.5); MEAN CORPUSCULAR VOLUME 76.6 fl (80.0-96.0); MONO # 0.5 10^3/uL (0.0-0.8); MONO % 6.2 % (2.0-8.0); NEUTROPHILS % 61.5 % (36.0-66.0); PLATELET COUNT, AUTOMATED 291 10^3/uL (150-450); RED BLOOD COUNT 5.08 10^6/uL (4.30-6.10); WHITE BLOOD COUNT 8.2 10^3/uL (4.0-10.0)
[2022-04-04 12:08] LABS: BLOOD UREA NITROGEN 13 MG/DL (9-23); CALCIUM LEVEL 8.4 MG/DL (8.3-10.6); CARBON DIOXIDE LEVEL 28 MMOL/L (20-31); CHLORIDE LEVEL 106 MMOL/L (98-107); CREATININE FOR GFR 0.46 MG/DL (0.70-1.30); GLOMERULAR FILTRATION RATE > 60.0 (>49); GLUCOSE, FASTING 125 MG/DL (74-106); POTASSIUM SERUM 4.2 MMOL/L (3.5-5.1); SODIUM LEVEL 140 MMOL/L (136-145)
[2022-04-05 06:00] VITALS: BP 111/61; TEMP 97.9; O2SAT 99
[2022-04-06 06:29] VITALS: BP 109/61; TEMP 98.1; O2SAT 96
[2022-04-07 06:46] VITALS: BP 136/76; TEMP 97.9; O2SAT 99
[2022-04-08 06:09] VITALS: BP 111/66; TEMP 98.1; O2SAT 95
[2022-04-09 06:19] VITALS: BP 118/69; TEMP 98.2; O2SAT 96
[2022-04-10 02:00] VITALS: BP 120/74; TEMP 97.9; O2SAT 97
[2022-04-11 06:00] VITALS: BP 115/65; TEMP 97.3; O2SAT 97
[2022-04-12 06:57] VITALS: BP 126/67; TEMP 98.4; O2SAT 96
[2022-04-13 06:00] VITALS: BP 125/70; TEMP 97.9; O2SAT 95
[2022-04-14 14:52] VITALS: BP 148/73; TEMP 98.8
[2022-04-14 16:04] VITALS: TEMP 99.5
[2022-04-14 16:34] LABS: HEMOGLOBIN 12.7 g/dl (13.5-17.5); MEAN CORPUSCULAR HEMOGLOBIN 23.2 pg (27.0-33.0); MEAN CORPUSCULAR HGB CONC 29.5 g/dl (32.0-36.5); MEAN CORPUSCULAR VOLUME 78.5 fl (80.0-96.0); PLATELET COUNT, AUTOMATED 280 10^3/uL (150-450); RED BLOOD COUNT 5.48 10^6/uL (4.30-6.10); WHITE BLOOD COUNT 8.6 10^3/uL (4.0-10.0)
[2022-04-14 16:48] LABS: BLOOD UREA NITROGEN 16 MG/DL (9-23); CALCIUM LEVEL 8.5 MG/DL (8.3-10.6); CARBON DIOXIDE LEVEL 30 MMOL/L (20-31); CHLORIDE LEVEL 103 MMOL/L (98-107); CREATININE FOR GFR 0.46 MG/DL (0.70-1.30); GLOMERULAR FILTRATION RATE > 60.0 (>49); GLUCOSE, FASTING 101 MG/DL (74-106); POTASSIUM SERUM 4.2 MMOL/L (3.5-5.1); SODIUM LEVEL 139 MMOL/L (136-145)
[2022-04-14 17:11] VITALS: BP 131/76; TEMP 102.4
[2022-04-14 17:40] VITALS: TEMP 102.6
[2022-04-14 18:13] VITALS: TEMP 101.3
[2022-04-14] MEDS: SODIUM CHLORIDE 0.9% 1000ML IV STA (18:47)
[2022-04-14 18:50] LABS: ABG BASE EXCESS 0.2 (-2.0-2.0); ABG HCO3 22.8 MEQ/L (22.0-26.0); ABG O2 SATURATION 95.6 % (95.0-99.0); ABG PARTIAL PRESSURE CO2 30.9 mmHg (35.0-45.0); ABG PARTIAL PRESSURE O2 74.4 mmHg (75.0-100.0); ABG STANDARD HCO3 24.7 MEQ/L (22.0-26.0); ABG TOTAL CO2 23.8 MEQ/L (23.0-31.0); ABG pH (ARTERIAL) 7.486 UNITS (7.350-7.450)
[2022-04-14 18:52] LABS: BASO # 0.1 10^3/uL (0.0-0.2); BASO % 0.7 % (0.0-1.0); EOS # 0.5 10^3/uL (0.0-0.5); EOS % 5.8 % (0.0-3.0); LYMPH # 0.6 10^3/uL (1.5-5.0); LYMPH % 6.5 % (24.0-44.0); MONO # 0.5 10^3/uL (0.0-0.8); MONO % 6.2 % (2.0-8.0); NEUTROPHILS # 6.9 10^3/uL (1.5-8.5); NEUTROPHILS % 80.5 % (36.0-66.0)
[2022-04-14 19:14] VITALS: TEMP 99.5
[2022-04-14] MEDS: CEFEPIME HCL 1 GM in D5W MINI-BAG PLUS 50 ML IV SCH (20:28)
[2022-04-14] MEDS: VANCOMYCIN HCL 1,000 MG, VIAL MATE ADAPTER 1 EACH in NS 250 ML IV ONE ×2 (21:52→23:25)
[2022-04-14] MEDS: metroNIDAZOLE (FLAGYL) 500MG TABLET PO SCH (21:52)
[2022-04-15 03:10] VITALS: TEMP 102
[2022-04-15 04:22] VITALS: TEMP 97.5
[2022-04-15] MEDS: VANCOMYCIN HCL 1,000 MG, VIAL MATE ADAPTER 1 EACH in NS 250 ML IV SCH (05:42)
[2022-04-15 06:51] VITALS: BP 116/68; TEMP 97; O2SAT 95
[2022-04-15] MEDS: LevoFLOXacin 750 MG TABLET PO SCH (08:21)
[2022-04-15] MEDS: NIRMATRELVIR/RITONAVIR CO-PACK (EMERGENCY USE AUTH) PO SCH (14:53)
[2022-04-15] MEDS: ENOXAPARIN 40MG/0.4ML SYRINGE (J1650 PER 10MG) SC SCH (17:25)
[2022-04-16 06:08] VITALS: BP 120/57; TEMP 98.6; O2SAT 96
[2022-04-16 14:00] VITALS: BP 119/59; TEMP 98.1; O2SAT 97
[2022-04-16 20:00] VITALS: BP 101/62; TEMP 98.6; O2SAT 96
[2022-04-17 06:41] VITALS: BP 118/76; TEMP 97; O2SAT 96
[2022-04-17] MEDS: CEFDINIR 300 MG CAP (OMNICEF) PO SCH (13:54)
[2022-04-17 14:30] VITALS: BP_SYST 97; BP_SYST 99; BP_DIAS 64; TEMP 97.9; O2SAT 96
[2022-04-17 21:30] VITALS: BP 99/65; TEMP 98.2; O2SAT 94
[2022-04-18 06:18] VITALS: BP 115/63; TEMP 97.7; O2SAT 96
[2022-04-18] MEDS: guaiFENesin ER TABLET 600 MG TAB PO SCH (09:00)
[2022-04-18 14:00] VITALS: BP 118/64; TEMP 97.5; O2SAT 96
[2022-04-19 06:00] VITALS: BP 112/71; TEMP 98.2; O2SAT 97
[2022-04-20 06:00] VITALS: BP 122/64; TEMP 97.5; O2SAT 96
[2022-04-21 05:40] VITALS: BP 118/62; TEMP 97.9; O2SAT 97
[2022-04-22 06:23] VITALS: BP 135/78; TEMP 97.7; O2SAT 97
[2022-04-23 06:01] VITALS: BP 120/67; TEMP 97.9; O2SAT 94
[2022-04-24 05:42] VITALS: BP 118/62; TEMP 98.6; O2SAT 96
[2022-04-25 06:00] VITALS: BP 120/63; TEMP 97.7; O2SAT 97
[2022-04-26 06:00] VITALS: BP 120/63; TEMP 97.3; O2SAT 98
[2022-04-27 06:20] VITALS: BP 119/60; TEMP 98.8; O2SAT 94
[2022-04-28 06:13] VITALS: BP 118/74; TEMP 97.3; O2SAT 97
[2022-04-28 08:00] VITALS: BP 128/69; TEMP 97.7; O2SAT 96
[2022-04-29 05:31] VITALS: BP 130/68; TEMP 97.5; O2SAT 97
[2022-04-29 09:01] VITALS: BP 111/69; TEMP 98.8; O2SAT 95
[2022-04-30 06:00] VITALS: BP 115/67; TEMP 97.7; O2SAT 93
[2022-04-30 08:40] VITALS: BP 130/70; TEMP 97.7; O2SAT 97
[2022-05-01 06:00] VITALS: BP 100/59; TEMP 97.5; O2SAT 98
[2022-05-02 06:00] VITALS: BP 125/64; TEMP 97.7; O2SAT 98
[2022-05-03 06:00] VITALS: BP 122/64; TEMP 97.7; O2SAT 98
[2022-05-04 05:46] VITALS: BP 117/61; TEMP 98.6; O2SAT 96
[2022-05-05 06:00] VITALS: BP 114/72; TEMP 98.4; O2SAT 94
[2022-05-05 17:36] LABS: BASO # 0.1 10^3/uL (0.0-0.2); BASO % 0.8 % (0.0-1.0); EOS # 0.5 10^3/uL (0.0-0.5); EOS % 4.8 % (0.0-3.0); HEMATOCRIT 41.6 % (42.0-52.0); HEMOGLOBIN 12.4 g/dl (13.5-17.5); LYMPH # 1.1 10^3/uL (1.5-5.0); LYMPH % 10.2 % (24.0-44.0); MEAN CORPUSCULAR HEMOGLOBIN 23.4 pg (27.0-33.0); MEAN CORPUSCULAR HGB CONC 29.8 g/dl (32.0-36.5); MEAN CORPUSCULAR VOLUME 78.3 fl (80.0-96.0); MONO % 10.1 % (2.0-8.0); NEUTROPHILS # 7.5 10^3/uL (1.5-8.5); NEUTROPHILS % 73.4 % (36.0-66.0); PLATELET COUNT, AUTOMATED 394 10^3/uL (150-450); RED BLOOD COUNT 5.31 10^6/uL (4.30-6.10); WHITE BLOOD COUNT 10.3 10^3/uL (4.0-10.0)
[2022-05-05 18:17] LABS: ALBUMIN 2.8 G/DL (3.2-5.2); ALKALINE PHOSPHATASE 96 U/L (46-116); ALT/SGPT 10 U/L (7.0-40); AST/SGOT 22 U/L (<34); BILIRUBIN,TOTAL 0.6 MG/DL (0.3-1.2); BLOOD UREA NITROGEN 12 MG/DL (9-23); CALCIUM LEVEL 8.7 MG/DL (8.3-10.6); CARBON DIOXIDE LEVEL 27 MMOL/L (20-31); CHLORIDE LEVEL 99 MMOL/L (98-107); CREATININE FOR GFR 0.41 MG/DL (0.70-1.30); GLOMERULAR FILTRATION RATE > 60.0 (>49); GLUCOSE, FASTING 123 MG/DL (74-106); POTASSIUM SERUM 4.5 MMOL/L (3.5-5.1); SODIUM LEVEL 136 MMOL/L (136-145); TOTAL PROTEIN 7.5 G/DL (5.7-8.2)
[2022-05-05 19:11] VITALS: TEMP 102.1
[2022-05-05 20:00] VITALS: BP 118/72; TEMP 101.5; O2SAT 4
[2022-05-05] MEDS: cefTRIAXone SOD 1 GM in D5W MINI-BAG PLUS 50 ML IV SCH (20:53)
[2022-05-05] MEDS: IBUPROFEN 400MG TAB PO ONE (20:53)
[2022-05-05] MEDS: DOXYCYCLINE HYCLATE 100MG TABLET PO SCH (20:54)
[2022-05-05 22:00] VITALS: BP 112/58; TEMP 99.7; O2SAT 91
[2022-05-06 02:45] VITALS: TEMP 97.3
[2022-05-06 06:00] VITALS: BP 110/61; TEMP 96.1; O2SAT 95
[2022-05-06 06:33] LABS: BASO # 0.1 10^3/uL (0.0-0.2); BASO % 1.2 % (0.0-1.0); EOS # 0.8 10^3/uL (0.0-0.5); EOS % 9.9 % (0.0-3.0); HEMATOCRIT 38.1 % (42.0-52.0); HEMOGLOBIN 11.4 g/dl (13.5-17.5); LYMPH # 1.6 10^3/uL (1.5-5.0); LYMPH % 19.3 % (24.0-44.0); MEAN CORPUSCULAR HEMOGLOBIN 23.2 pg (27.0-33.0); MEAN CORPUSCULAR HGB CONC 29.9 g/dl (32.0-36.5); MEAN CORPUSCULAR VOLUME 77.4 fl (80.0-96.0); MONO % 12.5 % (2.0-8.0); NEUTROPHILS # 4.7 10^3/uL (1.5-8.5); NEUTROPHILS % 56.4 % (36.0-66.0); PLATELET COUNT, AUTOMATED 369 10^3/uL (150-450); RED BLOOD COUNT 4.92 10^6/uL (4.30-6.10); WHITE BLOOD COUNT 8.3 10^3/uL (4.0-10.0)
[2022-05-06 06:44] LABS: ERYTHROCYTE SEDIMENTATION RATE 128 mm/hr (0-20)
[2022-05-06 14:00] VITALS: BP 130/71; TEMP 98.3; O2SAT 95
[2022-05-06 22:00] VITALS: BP 120/57; TEMP 98.1; O2SAT 97
[2022-05-07 06:00] VITALS: BP 119/57; TEMP 97.5; O2SAT 94
[2022-05-07 06:05] LABS: BASO # 0.1 10^3/uL (0.0-0.2); EOS # 1.1 10^3/uL (0.0-0.5); EOS % 13.3 % (0.0-3.0); HEMATOCRIT 36.2 % (42.0-52.0); HEMOGLOBIN 10.9 g/dl (13.5-17.5); LYMPH # 1.6 10^3/uL (1.5-5.0); LYMPH % 19.7 % (24.0-44.0); MEAN CORPUSCULAR HEMOGLOBIN 23.2 pg (27.0-33.0); MEAN CORPUSCULAR HGB CONC 30.1 g/dl (32.0-36.5); MEAN CORPUSCULAR VOLUME 77.2 fl (80.0-96.0); MONO # 0.6 10^3/uL (0.0-0.8); MONO % 7.2 % (2.0-8.0); NEUTROPHILS # 4.9 10^3/uL (1.5-8.5); NEUTROPHILS % 58.2 % (36.0-66.0); PLATELET COUNT, AUTOMATED 390 10^3/uL (150-450); RED BLOOD COUNT 4.69 10^6/uL (4.30-6.10); WHITE BLOOD COUNT 8.3 10^3/uL (4.0-10.0)
[2022-05-07 06:20] LABS: ERYTHROCYTE SEDIMENTATION RATE 123 mm/hr (0-20)
[2022-05-07 06:36] LABS: ALBUMIN 2.4 G/DL (3.2-5.2); ALKALINE PHOSPHATASE 78 U/L (46-116); ALT/SGPT 11 U/L (7.0-40); AST/SGOT 15 U/L (<34); BILIRUBIN,TOTAL 0.2 MG/DL (0.3-1.2); BLOOD UREA NITROGEN 18 MG/DL (9-23); CALCIUM LEVEL 8.1 MG/DL (8.3-10.6); CARBON DIOXIDE LEVEL 27 MMOL/L (20-31); CHLORIDE LEVEL 104 MMOL/L (98-107); CREATININE FOR GFR 0.33 MG/DL (0.70-1.30); GLOMERULAR FILTRATION RATE > 60.0 (>49); GLUCOSE, FASTING 159 MG/DL (74-106); MAGNESIUM LEVEL 1.7 MG/DL (1.8-2.4); POTASSIUM SERUM 4.2 MMOL/L (3.5-5.1); SODIUM LEVEL 139 MMOL/L (136-145); TOTAL PROTEIN 6.6 G/DL (5.7-8.2)
[2022-05-07] MEDS: MAGNESIUM OXIDE 400MG TAB (MAG-OX) PO ONE (08:52)
[2022-05-07 14:00] VITALS: BP 117/58; TEMP 98.5; O2SAT 96
[2022-05-07 22:00] VITALS: BP 115/58; TEMP 97.7; O2SAT 97
[2022-05-08 06:00] VITALS: BP 111/69; TEMP 97.3; O2SAT 96
[2022-05-08 08:15] LABS: BASO # 0.1 10^3/uL (0.0-0.2); BASO % 0.8 % (0.0-1.0); EOS # 1.1 10^3/uL (0.0-0.5); EOS % 12.3 % (0.0-3.0); HEMATOCRIT 36.4 % (42.0-52.0); HEMOGLOBIN 10.9 g/dl (13.5-17.5); LYMPH # 1.8 10^3/uL (1.5-5.0); LYMPH % 19.6 % (24.0-44.0); MEAN CORPUSCULAR HEMOGLOBIN 23.3 pg (27.0-33.0); MEAN CORPUSCULAR HGB CONC 29.9 g/dl (32.0-36.5); MEAN CORPUSCULAR VOLUME 77.8 fl (80.0-96.0); MONO # 0.6 10^3/uL (0.0-0.8); MONO % 6.3 % (2.0-8.0); NEUTROPHILS # 5.5 10^3/uL (1.5-8.5); NEUTROPHILS % 60.4 % (36.0-66.0); PLATELET COUNT, AUTOMATED 396 10^3/uL (150-450); RED BLOOD COUNT 4.68 10^6/uL (4.30-6.10); WHITE BLOOD COUNT 9.1 10^3/uL (4.0-10.0)
[2022-05-08 08:24] LABS: ERYTHROCYTE SEDIMENTATION RATE 100 mm/hr (0-20)
[2022-05-08 08:38] LABS: ALBUMIN 2.5 G/DL (3.2-5.2); ALKALINE PHOSPHATASE 82 U/L (46-116); ALT/SGPT 14 U/L (7.0-40); AST/SGOT < 8 U/L (<34); BILIRUBIN,TOTAL 0.3 MG/DL (0.3-1.2); BLOOD UREA NITROGEN 12 MG/DL (9-23); CALCIUM LEVEL 8.1 MG/DL (8.3-10.6); CARBON DIOXIDE LEVEL 27 MMOL/L (20-31); CHLORIDE LEVEL 108 MMOL/L (98-107); CREATININE FOR GFR 0.33 MG/DL (0.70-1.30); GLOMERULAR FILTRATION RATE > 60.0 (>49); GLUCOSE, FASTING 129 MG/DL (74-106); MAGNESIUM LEVEL 1.7 MG/DL (1.8-2.4); POTASSIUM SERUM 4.4 MMOL/L (3.5-5.1); SODIUM LEVEL 137 MMOL/L (136-145); TOTAL PROTEIN 6.7 G/DL (5.7-8.2)
[2022-05-08 14:00] VITALS: BP 116/67; TEMP 98.6; O2SAT 97
[2022-05-08 21:39] VITALS: BP 115/66; TEMP 97.9; O2SAT 97
[2022-05-09 06:00] VITALS: BP 117/67; TEMP 97.5; O2SAT 98
[2022-05-09] MEDS: CEFEPIME HCL 2 GM in D5W MINI-BAG PLUS 50 ML IV SCH (09:14)
[2022-05-09 14:00] VITALS: BP 116/64; TEMP 97.9; O2SAT 96
[2022-05-09 22:00] VITALS: BP 115/62; TEMP 97.3; O2SAT 97
[2022-05-10 06:00] VITALS: BP 115/66; TEMP 97.7; O2SAT 97
[2022-05-10 06:10] LABS: BASO # 0.1 10^3/uL (0.0-0.2); BASO % 0.8 % (0.0-1.0); EOS % 11.1 % (0.0-3.0); HEMATOCRIT 35.8 % (42.0-52.0); LYMPH # 1.9 10^3/uL (1.5-5.0); LYMPH % 20.5 % (24.0-44.0); MEAN CORPUSCULAR HEMOGLOBIN 23.8 pg (27.0-33.0); MEAN CORPUSCULAR HGB CONC 30.7 g/dl (32.0-36.5); MEAN CORPUSCULAR VOLUME 77.3 fl (80.0-96.0); MONO # 0.6 10^3/uL (0.0-0.8); MONO % 6.9 % (2.0-8.0); NEUTROPHILS # 5.4 10^3/uL (1.5-8.5); PLATELET COUNT, AUTOMATED 377 10^3/uL (150-450); RED BLOOD COUNT 4.63 10^6/uL (4.30-6.10)
[2022-05-10 06:20] LABS: ERYTHROCYTE SEDIMENTATION RATE 114 mm/hr (0-20)
[2022-05-10] MEDS: MAGNESIUM OXIDE 400MG TAB (MAG-OX) PO ONE (08:45)
[2022-05-10 14:00] VITALS: BP 115/65; TEMP 98.8; O2SAT 96
[2022-05-10 22:00] VITALS: BP 115/64; TEMP 97.9; O2SAT 96
[2022-05-11 06:00] VITALS: BP 110/64; TEMP 98.1; O2SAT 97
[2022-05-11 08:23] LABS: BASO # 0.1 10^3/uL (0.0-0.2); BASO % 0.8 % (0.0-1.0); EOS # 1.1 10^3/uL (0.0-0.5); EOS % 12.9 % (0.0-3.0); HEMATOCRIT 36.3 % (42.0-52.0); HEMOGLOBIN 11.1 g/dl (13.5-17.5); LYMPH # 1.5 10^3/uL (1.5-5.0); LYMPH % 17.5 % (24.0-44.0); MEAN CORPUSCULAR HEMOGLOBIN 23.6 pg (27.0-33.0); MEAN CORPUSCULAR HGB CONC 30.6 g/dl (32.0-36.5); MEAN CORPUSCULAR VOLUME 77.2 fl (80.0-96.0); MONO # 0.6 10^3/uL (0.0-0.8); MONO % 6.4 % (2.0-8.0); NEUTROPHILS # 5.4 10^3/uL (1.5-8.5); NEUTROPHILS % 61.8 % (36.0-66.0); PLATELET COUNT, AUTOMATED 376 10^3/uL (150-450); WHITE BLOOD COUNT 8.8 10^3/uL (4.0-10.0)
[2022-05-11 08:58] LABS: ERYTHROCYTE SEDIMENTATION RATE 108 mm/hr (0-20)
[2022-05-11 08:59] LABS: BLOOD UREA NITROGEN 15 MG/DL (9-23); CALCIUM LEVEL 8.3 MG/DL (8.3-10.6); CARBON DIOXIDE LEVEL 27 MMOL/L (20-31); CHLORIDE LEVEL 105 MMOL/L (98-107); CREATININE FOR GFR 0.33 MG/DL (0.70-1.30); GLOMERULAR FILTRATION RATE > 60.0 (>49); GLUCOSE, FASTING 124 MG/DL (74-106); POTASSIUM SERUM 4.4 MMOL/L (3.5-5.1); SODIUM LEVEL 138 MMOL/L (136-145)
[2022-05-11 14:00] VITALS: BP 112/64; TEMP 98.1; O2SAT 96
[2022-05-11 21:21] VITALS: BP 114/63; TEMP 98.1; O2SAT 97
[2022-05-12 06:25] VITALS: BP 111/65; TEMP 98.1; O2SAT 96
[2022-05-12 08:00] VITALS: BP 118/66; TEMP 98.1; O2SAT 94
[2022-05-13 06:59] VITALS: BP 117/65; TEMP 97.9; O2SAT 96
[2022-05-13 08:42] LABS: BASO # 0.1 10^3/uL (0.0-0.2); BASO % 0.8 % (0.0-1.0); EOS % 9.4 % (0.0-3.0); HEMATOCRIT 39.3 % (42.0-52.0); HEMOGLOBIN 11.8 g/dl (13.5-17.5); LYMPH # 1.8 10^3/uL (1.5-5.0); LYMPH % 17.1 % (24.0-44.0); MEAN CORPUSCULAR HEMOGLOBIN 23.6 pg (27.0-33.0); MEAN CORPUSCULAR VOLUME 78.4 fl (80.0-96.0); MONO # 0.7 10^3/uL (0.0-0.8); MONO % 6.3 % (2.0-8.0); NEUTROPHILS # 6.7 10^3/uL (1.5-8.5); NEUTROPHILS % 65.3 % (36.0-66.0); PLATELET COUNT, AUTOMATED 375 10^3/uL (150-450); RED BLOOD COUNT 5.01 10^6/uL (4.30-6.10); WHITE BLOOD COUNT 10.3 10^3/uL (4.0-10.0)
[2022-05-13 08:53] LABS: ERYTHROCYTE SEDIMENTATION RATE 118 mm/hr (0-20)
[2022-05-13 09:14] LABS: BLOOD UREA NITROGEN 16 MG/DL (9-23); CALCIUM LEVEL 8.5 MG/DL (8.3-10.6); CARBON DIOXIDE LEVEL 28 MMOL/L (20-31); CHLORIDE LEVEL 105 MMOL/L (98-107); CREATININE FOR GFR 0.37 MG/DL (0.70-1.30); GLOMERULAR FILTRATION RATE > 60.0 (>49); GLUCOSE, FASTING 119 MG/DL (74-106); POTASSIUM SERUM 4.6 MMOL/L (3.5-5.1); SODIUM LEVEL 139 MMOL/L (136-145)
[2022-05-14 06:45] VITALS: BP 133/74; TEMP 98.1; O2SAT 96
[2022-05-14] MEDS: IPRATROPIUM 0.5MG/ALBUTEROL 2.5MG INH SOL UD 3ML (DUONEB) NEB ONE (09:06)
[2022-05-14 14:00] VITALS: BP 127/63; TEMP 98.1; O2SAT 98
[2022-05-15 06:34] VITALS: BP 116/64; TEMP 98.1; O2SAT 96
[2022-05-15 07:54] LABS: BASO # 0.1 10^3/uL (0.0-0.2); EOS % 10.9 % (0.0-3.0); HEMATOCRIT 37.9 % (42.0-52.0); HEMOGLOBIN 11.3 g/dl (13.5-17.5); LYMPH # 1.5 10^3/uL (1.5-5.0); LYMPH % 17.5 % (24.0-44.0); MEAN CORPUSCULAR HEMOGLOBIN 23.3 pg (27.0-33.0); MEAN CORPUSCULAR HGB CONC 29.8 g/dl (32.0-36.5); MEAN CORPUSCULAR VOLUME 78.3 fl (80.0-96.0); MONO # 0.6 10^3/uL (0.0-0.8); MONO % 6.6 % (2.0-8.0); NEUTROPHILS # 5.5 10^3/uL (1.5-8.5); NEUTROPHILS % 63.1 % (36.0-66.0); PLATELET COUNT, AUTOMATED 341 10^3/uL (150-450); RED BLOOD COUNT 4.84 10^6/uL (4.30-6.10); WHITE BLOOD COUNT 8.7 10^3/uL (4.0-10.0)
[2022-05-15 09:21] LABS: ALBUMIN 2.4 G/DL (3.2-5.2); ALKALINE PHOSPHATASE 101 U/L (46-116); ALT/SGPT 16 U/L (7.0-40); AST/SGOT 17 U/L (<34); BILIRUBIN,TOTAL 0.4 MG/DL (0.3-1.2); BLOOD UREA NITROGEN 16 MG/DL (9-23); CALCIUM LEVEL 8.2 MG/DL (8.3-10.6); CARBON DIOXIDE LEVEL 26 MMOL/L (20-31); CHLORIDE LEVEL 106 MMOL/L (98-107); CREATININE FOR GFR 0.34 MG/DL (0.70-1.30); GLOMERULAR FILTRATION RATE > 60.0 (>49); GLUCOSE, FASTING 112 MG/DL (74-106); POTASSIUM SERUM 4.4 MMOL/L (3.5-5.1); SODIUM LEVEL 139 MMOL/L (136-145); TOTAL PROTEIN 6.7 G/DL (5.7-8.2)
[2022-05-15 09:47] LABS: ERYTHROCYTE SEDIMENTATION RATE 102 mm/hr (0-20)
[2022-05-16 06:00] VITALS: BP 117/63; TEMP 97.9; O2SAT 98
[2022-05-17 06:00] VITALS: BP 121/60; TEMP 98.1; O2SAT 97
[2022-05-18 06:00] VITALS: BP 128/72; TEMP 98.1; O2SAT 93
[2022-05-19 06:00] VITALS: BP 117/58; TEMP 98.2; O2SAT 94
[2022-05-20 06:30] VITALS: BP 115/68; TEMP 98.1; O2SAT 96
[2022-05-21 06:42] VITALS: BP 116/66; TEMP 98.2; O2SAT 96
[2022-05-22 06:00] VITALS: BP 117/67; TEMP 97.7; O2SAT 96
[2022-05-22] MEDS: SENNA 8.6 MG TAB (SENOKOT) PO SCH (20:46)
[2022-05-22] MEDS: DOCUSATE SODIUM 100MG CAPSULE PO SCH (20:46)
[2022-05-23 06:00] VITALS: BP 122/69; TEMP 98.1; O2SAT 98
[2022-05-24 00:33] VITALS: BP 108/63; TEMP 97.9; O2SAT 96
[2022-05-25 06:00] VITALS: BP 124/70; TEMP 98.2; O2SAT 94
[2022-05-25 09:31] VITALS: BP 108/66; TEMP 98.6; O2SAT 96
[2022-05-26 06:24] VITALS: BP 114/63; TEMP 98.8; O2SAT 97
[2022-05-27 06:49] VITALS: BP 115/62; TEMP 98.2; O2SAT 96
[2022-05-27 07:00] VITALS: BP 116/64; TEMP 97.7; O2SAT 94
[2022-05-27 14:00] VITALS: BP 134/68; TEMP 98.1
[2022-05-28 06:37] VITALS: BP 117/60; TEMP 98.6; O2SAT 96
[2022-05-28 08:00] VITALS: BP 138/70; TEMP 98.1; O2SAT 96
[2022-05-29 06:45] VITALS: BP 134/60; TEMP 98.2; O2SAT 96
[2022-05-30 06:00] VITALS: BP 119/64; TEMP 97.9; O2SAT 98
[2022-05-31 06:00] VITALS: BP 118/64; TEMP 98.1; O2SAT 97
[2022-06-01 06:00] VITALS: BP 129/64; TEMP 98.2; O2SAT 95
[2022-06-01 07:30] VITALS: BP 128/65; TEMP 98.1; O2SAT 96
[2022-06-02 05:56] VITALS: BP 134/67; TEMP 97.7; O2SAT 96
[2022-06-03 06:00] VITALS: BP 114/63; TEMP 98.2; O2SAT 96
[2022-06-03 09:00] VITALS: BP 116/80; TEMP 98.1; O2SAT 96
[2022-06-03 14:00] VITALS: BP 116/82; TEMP 97.8; O2SAT 96
[2022-06-04 06:00] VITALS: BP 117/66; TEMP 97.9; O2SAT 95
[2022-06-05 06:26] VITALS: BP 119/65; TEMP 98.2; O2SAT 97
[2022-06-06 06:45] VITALS: BP 111/68; TEMP 98.6; O2SAT 95
[2022-06-06 21:20] VITALS: BP 123/66; TEMP 97.7; O2SAT 93
[2022-06-07 05:45] VITALS: BP 131/73; TEMP 97.9; O2SAT 96
[2022-06-07 06:00] VITALS: BP 131/73; TEMP 97.9; O2SAT 96
[2022-06-08 06:08] VITALS: BP 123/71; TEMP 98.3; O2SAT 96
[2022-06-09 06:47] VITALS: BP 126/68; TEMP 97.9; O2SAT 96
[2022-06-09 08:23] VITALS: BP 127/68; TEMP 98.2; O2SAT 96
[2022-06-09 14:00] VITALS: BP 132/66; TEMP 98.1; O2SAT 100
[2022-06-10 06:23] VITALS: BP 115/63; TEMP 97.7; O2SAT 96
[2022-06-11 06:01] VITALS: BP 105/68; TEMP 98.1; O2SAT 97
[2022-06-12 06:14] VITALS: BP 122/68; TEMP 98; O2SAT 96
[2022-06-13 06:00] VITALS: BP 122/63; TEMP 98.4; O2SAT 96
[2022-06-14 06:40] VITALS: BP 120/63; TEMP 98.4; O2SAT 96
[2022-06-15 06:16] VITALS: BP 123/64; TEMP 98.8; O2SAT 96
[2022-06-15 09:20] VITALS: BP 125/68; TEMP 98.6; O2SAT 96
[2022-06-16 00:52] VITALS: BP 122/68; TEMP 97.5; O2SAT 96
[2022-06-17 07:00] VITALS: BP 108/62; TEMP 97.7; O2SAT 96
[2022-06-18 00:27] VITALS: BP 112/63; TEMP 96.8; O2SAT 96
[2022-06-19 06:00] VITALS: BP 121/66; TEMP 98.8; O2SAT 97
[2022-06-20 06:00] VITALS: BP 100/54; TEMP 98.1; O2SAT 97
[2022-06-21 06:00] VITALS: BP 116/61; TEMP 97.3; O2SAT 97
[2022-06-22 06:11] VITALS: BP 113/61; TEMP 98.2; O2SAT 97
[2022-06-23 06:31] VITALS: BP 124/71; TEMP 97.9; O2SAT 96
[2022-06-23 08:21] LABS: BASO # 0.1 10^3/uL (0.0-0.2); BASO % 1.4 % (0.0-1.0); EOS # 0.7 10^3/uL (0.0-0.5); HEMATOCRIT 37.8 % (42.0-52.0); HEMOGLOBIN 11.5 g/dl (13.5-17.5); LYMPH # 1.6 10^3/uL (1.5-5.0); LYMPH % 20.1 % (24.0-44.0); MEAN CORPUSCULAR HEMOGLOBIN 23.7 pg (27.0-33.0); MEAN CORPUSCULAR HGB CONC 30.4 g/dl (32.0-36.5); MEAN CORPUSCULAR VOLUME 77.9 fl (80.0-96.0); MONO # 0.6 10^3/uL (0.0-0.8); MONO % 7.5 % (2.0-8.0); NEUTROPHILS # 5.1 10^3/uL (1.5-8.5); NEUTROPHILS % 62.6 % (36.0-66.0); PLATELET COUNT, AUTOMATED 366 10^3/uL (150-450); RED BLOOD COUNT 4.85 10^6/uL (4.30-6.10); WHITE BLOOD COUNT 8.1 10^3/uL (4.0-10.0)
[2022-06-23 08:38] LABS: ERYTHROCYTE SEDIMENTATION RATE 122 mm/hr (0-20)
[2022-06-23 08:43] LABS: INR 1.44; PROTHROMBIN TIME 17.8 SECONDS (12.5-14.5)
[2022-06-23 08:44] LABS: PARTIAL THROMBOPLASTIN TIME 41.6 SECONDS (24.8-34.2)
[2022-06-23 08:58] LABS: ALBUMIN 2.5 G/DL (3.2-5.2); ALKALINE PHOSPHATASE 95 U/L (46-116); ALT/SGPT 18 U/L (7.0-40); AST/SGOT 20 U/L (<34); BILIRUBIN,TOTAL 0.3 MG/DL (0.3-1.2); BLOOD UREA NITROGEN 12 MG/DL (9-23); CALCIUM LEVEL 8.2 MG/DL (8.3-10.6); CARBON DIOXIDE LEVEL 28 MMOL/L (20-31); CHLORIDE LEVEL 106 MMOL/L (98-107); CREATININE FOR GFR 0.31 MG/DL (0.70-1.30); GLOMERULAR FILTRATION RATE > 60.0 (>49); GLUCOSE, FASTING 115 MG/DL (74-106); POTASSIUM SERUM 4.3 MMOL/L (3.5-5.1); PREALBUMIN 12.2 MG/DL (10.0-40.0); SODIUM LEVEL 140 MMOL/L (136-145); TOTAL PROTEIN 6.6 G/DL (5.7-8.2)
[2022-06-24 06:24] VITALS: BP 122/70; TEMP 97.7; O2SAT 96
[2022-06-25 06:10] VITALS: BP 120/67; TEMP 98.1; O2SAT 97
[2022-06-26 06:00] VITALS: BP 119/65; TEMP 97.7; O2SAT 97
[2022-06-27 06:00] VITALS: BP 119/64; TEMP 98.2; O2SAT 97
[2022-06-28 06:00] VITALS: BP 118/62; TEMP 97.7; O2SAT 96
[2022-06-29 06:00] VITALS: BP 118/61; TEMP 97; O2SAT 92
[2022-06-29 08:00] VITALS: BP 118/62; TEMP 98.1; O2SAT 95
[2022-06-30 05:43] VITALS: BP 124/65; TEMP 97.9; O2SAT 95
[2022-07-01 05:06] VITALS: BP 112/65; TEMP 97.7; O2SAT 94
[2022-07-01 07:55] VITALS: BP 114/64; TEMP 97.9
[2022-07-02 06:00] VITALS: BP 117/59; TEMP 97.5; O2SAT 95
[2022-07-03 05:08] VITALS: BP 124/68; TEMP 97.3; O2SAT 94
[2022-07-03] MEDS: RIVAROXABAN 10MG TAB (XARELTO) PO SCH (17:14)
[2022-07-04 09:30] VITALS: BP 132/72; TEMP 98.8; O2SAT 97
[2022-07-05 06:00] VITALS: BP 118/65; TEMP 98.1; O2SAT 97
[2022-07-06 05:52] VITALS: BP 118/63; O2SAT 98
[2022-07-07] MEDS: BISACODYL 10MG SUPP PR ONE (21:05)
[2022-07-08 09:00] VITALS: BP 125/63; TEMP 98.1; O2SAT 99
[2022-07-09 06:44] VITALS: BP 114/51; TEMP 98.2; O2SAT 93
[2022-07-10 05:40] VITALS: BP 121/57; TEMP 99; O2SAT 96
[2022-07-11 06:00] VITALS: BP 130/66; TEMP 97.7; O2SAT 94
[2022-07-12 05:42] VITALS: BP 114/62; TEMP 98.2; O2SAT 96
[2022-07-13 06:15] VITALS: BP 116/58; TEMP 98.1; O2SAT 98
[2022-07-13 07:30] VITALS: BP 127/72; TEMP 98.2; O2SAT 98
[2022-07-14 06:50] VITALS: BP 135/72; TEMP 98.1; O2SAT 97
[2022-07-15 01:54] VITALS: BP 116/66; TEMP 98.8; O2SAT 97
[2022-07-15 08:00] VITALS: BP 117/67; TEMP 98.1; O2SAT 95
[2022-07-16 00:11] VITALS: BP 112/65; TEMP 98.2; O2SAT 97
[2022-07-17 06:39] VITALS: BP 124/67; TEMP 98.4; O2SAT 97
[2022-07-18 06:00] VITALS: BP 108/60; TEMP 97.9; O2SAT 95
[2022-07-19 06:23] VITALS: BP 115/63; TEMP 97.9; O2SAT 96
[2022-07-20 06:00] VITALS: BP 120/67; TEMP 98.1; O2SAT 97
[2022-07-21 05:31] VITALS: BP 124/77; TEMP 97.9; O2SAT 98
[2022-07-22 02:11] VITALS: BP 124/65; TEMP 98.1; O2SAT 97
[2022-07-22 08:00] VITALS: BP 122/65; TEMP 98.1; O2SAT 97
[2022-07-23 06:00] VITALS: BP 122/66; TEMP 97.7; O2SAT 95
[2022-07-23 19:34] VITALS: BP 116/57; TEMP 98.4; O2SAT 97
[2022-07-24 06:00] VITALS: BP 131/64; TEMP 98.1; O2SAT 97
[2022-07-25 05:51] VITALS: BP 112/62; TEMP 97.7; O2SAT 98
[2022-07-26 05:57] VITALS: BP 113/51; TEMP 98.6; O2SAT 97
[2022-07-27 06:21] VITALS: BP 136/66; TEMP 98.6; O2SAT 96
[2022-07-27 08:06] VITALS: BP 114/78; TEMP 97.9; O2SAT 95
[2022-07-28 06:56] VITALS: BP 112/72; TEMP 96.9; O2SAT 96
[2022-07-29 06:11] VITALS: BP 128/60; TEMP 97.7; O2SAT 96
[2022-07-29 09:22] VITALS: BP 127/60; TEMP 98.6; O2SAT 97
[2022-07-30 06:04] VITALS: BP 117/73; TEMP 98.1; O2SAT 96
[2022-07-31 06:04] VITALS: BP 125/65; TEMP 98.1; O2SAT 96
[2022-08-01 06:00] VITALS: BP 108/56; TEMP 97.7; O2SAT 96
[2022-08-02 05:42] VITALS: BP 124/60; TEMP 98.1; O2SAT 96
[2022-08-03 06:23] VITALS: BP 125/70; TEMP 97.9; O2SAT 97
[2022-08-03 08:00] VITALS: O2SAT 98
[2022-08-04 06:12] VITALS: BP 112/60; TEMP 98.2; O2SAT 98
[2022-08-05 06:24] VITALS: BP 115/59; TEMP 97.7; O2SAT 95
[2022-08-05 07:30] VITALS: BP 115/59; TEMP 98.2; O2SAT 95
[2022-08-06 06:00] VITALS: BP 135/79; TEMP 98.1; O2SAT 98
[2022-08-06 08:30] VITALS: BP 132/72; TEMP 98.1; O2SAT 97
[2022-08-07 06:00] VITALS: BP 135/71; TEMP 97.9; O2SAT 97
[2022-08-08 06:45] VITALS: BP 131/70; TEMP 97.5; O2SAT 97
[2022-08-08 16:32] LABS: BASO # 0.1 10^3/uL (0.0-0.2); BASO % 1.2 % (0.0-1.0); EOS # 0.5 10^3/uL (0.0-0.5); EOS % 5.6 % (0.0-3.0); HEMATOCRIT 37.2 % (42.0-52.0); HEMOGLOBIN 11.1 g/dl (13.5-17.5); LYMPH # 1.9 10^3/uL (1.5-5.0); LYMPH % 21.1 % (24.0-44.0); MEAN CORPUSCULAR HEMOGLOBIN 23.3 pg (27.0-33.0); MEAN CORPUSCULAR HGB CONC 29.8 g/dl (32.0-36.5); MONO # 0.9 10^3/uL (0.0-0.8); MONO % 9.4 % (2.0-8.0); NEUTROPHILS # 5.6 10^3/uL (1.5-8.5); NEUTROPHILS % 62.3 % (36.0-66.0); PLATELET COUNT, AUTOMATED 357 10^3/uL (150-450); RED BLOOD COUNT 4.77 10^6/uL (4.30-6.10); WHITE BLOOD COUNT 9.1 10^3/uL (4.0-10.0)
[2022-08-08 16:59] LABS: ALBUMIN 2.6 G/DL (3.2-5.2); ALKALINE PHOSPHATASE 94 U/L (46-116); ALT/SGPT 16 U/L (7.0-40); AST/SGOT 12 U/L (<34); BILIRUBIN,TOTAL 0.3 MG/DL (0.3-1.2); BLOOD UREA NITROGEN 17 MG/DL (9-23); CALCIUM LEVEL 8.3 MG/DL (8.3-10.6); CARBON DIOXIDE LEVEL 29 MMOL/L (20-31); CHLORIDE LEVEL 107 MMOL/L (98-107); CREATININE FOR GFR 0.41 MG/DL (0.70-1.30); GLOMERULAR FILTRATION RATE > 60.0 (>49); GLUCOSE, FASTING 154 MG/DL (74-106); SODIUM LEVEL 140 MMOL/L (136-145); TOTAL PROTEIN 6.8 G/DL (5.7-8.2)
[2022-08-08 17:02] LABS: ERYTHROCYTE SEDIMENTATION RATE 104 mm/hr (0-20)
[2022-08-08] MEDS: RIVAROXABAN 10MG TAB (XARELTO) PO SCH (22:16)
[2022-08-09 06:00] VITALS: BP 115/65; TEMP 98.1; O2SAT 96
[2022-08-09 06:13] LABS: BASO # 0.1 10^3/uL (0.0-0.2); BASO % 1.1 % (0.0-1.0); EOS # 0.5 10^3/uL (0.0-0.5); EOS % 6.2 % (0.0-3.0); HEMATOCRIT 35.8 % (42.0-52.0); HEMOGLOBIN 10.8 g/dl (13.5-17.5); LYMPH # 1.8 10^3/uL (1.5-5.0); LYMPH % 21.1 % (24.0-44.0); MEAN CORPUSCULAR HEMOGLOBIN 23.5 pg (27.0-33.0); MEAN CORPUSCULAR HGB CONC 30.2 g/dl (32.0-36.5); MONO # 0.6 10^3/uL (0.0-0.8); MONO % 7.3 % (2.0-8.0); NEUTROPHILS # 5.4 10^3/uL (1.5-8.5); NEUTROPHILS % 63.7 % (36.0-66.0); PLATELET COUNT, AUTOMATED 314 10^3/uL (150-450); RED BLOOD COUNT 4.59 10^6/uL (4.30-6.10); WHITE BLOOD COUNT 8.5 10^3/uL (4.0-10.0)
[2022-08-09 06:36] LABS: BLOOD UREA NITROGEN 14 MG/DL (9-23); CALCIUM LEVEL 8.3 MG/DL (8.3-10.6); CARBON DIOXIDE LEVEL 28 MMOL/L (20-31); CHLORIDE LEVEL 107 MMOL/L (98-107); CREATININE FOR GFR 0.33 MG/DL (0.70-1.30); GLOMERULAR FILTRATION RATE > 60.0 (>49); GLUCOSE, FASTING 142 MG/DL (74-106); POTASSIUM SERUM 3.9 MMOL/L (3.5-5.1); SODIUM LEVEL 141 MMOL/L (136-145)
[2022-08-09] MEDS: ASPIRIN 81MG CHEW TABLET PO SCH (08:06)
[2022-08-10 06:00] VITALS: BP 118/65; TEMP 97.9; O2SAT 95
[2022-08-10 06:33] LABS: BASO # 0.1 10^3/uL (0.0-0.2); BASO % 0.7 % (0.0-1.0); EOS # 0.4 10^3/uL (0.0-0.5); EOS % 5.2 % (0.0-3.0); HEMATOCRIT 37.6 % (42.0-52.0); HEMOGLOBIN 11.3 g/dl (13.5-17.5); LYMPH # 1.8 10^3/uL (1.5-5.0); MEAN CORPUSCULAR HEMOGLOBIN 23.5 pg (27.0-33.0); MEAN CORPUSCULAR HGB CONC 30.1 g/dl (32.0-36.5); MEAN CORPUSCULAR VOLUME 78.3 fl (80.0-96.0); MONO # 0.7 10^3/uL (0.0-0.8); MONO % 8.3 % (2.0-8.0); NEUTROPHILS # 5.4 10^3/uL (1.5-8.5); NEUTROPHILS % 64.4 % (36.0-66.0); PLATELET COUNT, AUTOMATED 317 10^3/uL (150-450); WHITE BLOOD COUNT 8.4 10^3/uL (4.0-10.0)
[2022-08-10 07:03] LABS: BLOOD UREA NITROGEN 11 MG/DL (9-23); CALCIUM LEVEL 8.1 MG/DL (8.3-10.6); CARBON DIOXIDE LEVEL 28 MMOL/L (20-31); CHLORIDE LEVEL 106 MMOL/L (98-107); CREATININE FOR GFR 0.38 MG/DL (0.70-1.30); GLOMERULAR FILTRATION RATE > 60.0 (>49); GLUCOSE, FASTING 121 MG/DL (74-106); POTASSIUM SERUM 4.1 MMOL/L (3.5-5.1); SODIUM LEVEL 140 MMOL/L (136-145)
[2022-08-11 06:00] VITALS: BP 134/63; TEMP 97.9; O2SAT 98
[2022-08-11 07:23] LABS: BASO # 0.1 10^3/uL (0.0-0.2); EOS # 0.5 10^3/uL (0.0-0.5); EOS % 6.5 % (0.0-3.0); HEMATOCRIT 35.4 % (42.0-52.0); HEMOGLOBIN 10.6 g/dl (13.5-17.5); LYMPH # 1.5 10^3/uL (1.5-5.0); LYMPH % 21.4 % (24.0-44.0); MEAN CORPUSCULAR HEMOGLOBIN 23.6 pg (27.0-33.0); MEAN CORPUSCULAR HGB CONC 29.9 g/dl (32.0-36.5); MEAN CORPUSCULAR VOLUME 78.7 fl (80.0-96.0); MONO # 0.6 10^3/uL (0.0-0.8); MONO % 8.1 % (2.0-8.0); NEUTROPHILS # 4.5 10^3/uL (1.5-8.5); NEUTROPHILS % 62.6 % (36.0-66.0); PLATELET COUNT, AUTOMATED 315 10^3/uL (150-450); WHITE BLOOD COUNT 7.2 10^3/uL (4.0-10.0)
[2022-08-11 07:40] LABS: BLOOD UREA NITROGEN 15 MG/DL (9-23); CALCIUM LEVEL 8.3 MG/DL (8.3-10.6); CARBON DIOXIDE LEVEL 27 MMOL/L (20-31); CHLORIDE LEVEL 108 MMOL/L (98-107); CREATININE FOR GFR 0.38 MG/DL (0.70-1.30); GLOMERULAR FILTRATION RATE > 60.0 (>49); GLUCOSE, FASTING 141 MG/DL (74-106); POTASSIUM SERUM 3.9 MMOL/L (3.5-5.1); SODIUM LEVEL 140 MMOL/L (136-145)
[2022-08-12 06:18] VITALS: BP 130/64; TEMP 97.7; O2SAT 97
[2022-08-12 06:59] LABS: BASO # 0.1 10^3/uL (0.0-0.2); BASO % 1.1 % (0.0-1.0); EOS # 0.4 10^3/uL (0.0-0.5); EOS % 5.6 % (0.0-3.0); HEMATOCRIT 34.4 % (42.0-52.0); HEMOGLOBIN 10.4 g/dl (13.5-17.5); LYMPH # 1.8 10^3/uL (1.5-5.0); LYMPH % 25.1 % (24.0-44.0); MEAN CORPUSCULAR HEMOGLOBIN 23.5 pg (27.0-33.0); MEAN CORPUSCULAR HGB CONC 30.2 g/dl (32.0-36.5); MEAN CORPUSCULAR VOLUME 77.7 fl (80.0-96.0); MONO # 0.6 10^3/uL (0.0-0.8); MONO % 7.7 % (2.0-8.0); NEUTROPHILS # 4.3 10^3/uL (1.5-8.5); NEUTROPHILS % 59.9 % (36.0-66.0); PLATELET COUNT, AUTOMATED 306 10^3/uL (150-450); RED BLOOD COUNT 4.43 10^6/uL (4.30-6.10); WHITE BLOOD COUNT 7.2 10^3/uL (4.0-10.0)
[2022-08-12 07:28] LABS: BLOOD UREA NITROGEN 14 MG/DL (9-23); CALCIUM LEVEL 8.3 MG/DL (8.3-10.6); CARBON DIOXIDE LEVEL 28 MMOL/L (20-31); CHLORIDE LEVEL 107 MMOL/L (98-107); CREATININE FOR GFR 0.39 MG/DL (0.70-1.30); GLOMERULAR FILTRATION RATE > 60.0 (>49); GLUCOSE, FASTING 133 MG/DL (74-106); SODIUM LEVEL 140 MMOL/L (136-145)
[2022-08-13 06:08] VITALS: BP 121/80; TEMP 98.8; O2SAT 96
[2022-08-13 06:52] LABS: BASO # 0.1 10^3/uL (0.0-0.2); BASO % 1.2 % (0.0-1.0); EOS # 0.5 10^3/uL (0.0-0.5); EOS % 5.6 % (0.0-3.0); HEMATOCRIT 36.5 % (42.0-52.0); HEMOGLOBIN 10.9 g/dl (13.5-17.5); LYMPH # 1.8 10^3/uL (1.5-5.0); LYMPH % 20.3 % (24.0-44.0); MEAN CORPUSCULAR HEMOGLOBIN 23.6 pg (27.0-33.0); MEAN CORPUSCULAR HGB CONC 29.9 g/dl (32.0-36.5); MONO # 0.7 10^3/uL (0.0-0.8); MONO % 7.9 % (2.0-8.0); NEUTROPHILS # 5.6 10^3/uL (1.5-8.5); NEUTROPHILS % 64.4 % (36.0-66.0); PLATELET COUNT, AUTOMATED 321 10^3/uL (150-450); RED BLOOD COUNT 4.62 10^6/uL (4.30-6.10); WHITE BLOOD COUNT 8.6 10^3/uL (4.0-10.0)
[2022-08-13 07:18] LABS: BLOOD UREA NITROGEN 15 MG/DL (9-23); CARBON DIOXIDE LEVEL 27 MMOL/L (20-31); CHLORIDE LEVEL 107 MMOL/L (98-107); CREATININE FOR GFR 0.39 MG/DL (0.70-1.30); GLOMERULAR FILTRATION RATE > 60.0 (>49); GLUCOSE, FASTING 112 MG/DL (74-106); POTASSIUM SERUM 4.1 MMOL/L (3.5-5.1); SODIUM LEVEL 141 MMOL/L (136-145)
[2022-08-14 06:06] VITALS: BP 117/60; TEMP 98.1; O2SAT 97
[2022-08-14 06:56] LABS: BASO # 0.1 10^3/uL (0.0-0.2); BASO % 1.1 % (0.0-1.0); EOS # 0.5 10^3/uL (0.0-0.5); EOS % 5.5 % (0.0-3.0); HEMOGLOBIN 11.4 g/dl (13.5-17.5); LYMPH # 1.7 10^3/uL (1.5-5.0); LYMPH % 18.4 % (24.0-44.0); MEAN CORPUSCULAR HEMOGLOBIN 23.6 pg (27.0-33.0); MEAN CORPUSCULAR VOLUME 78.5 fl (80.0-96.0); MONO # 0.7 10^3/uL (0.0-0.8); NEUTROPHILS # 5.9 10^3/uL (1.5-8.5); NEUTROPHILS % 66.3 % (36.0-66.0); PLATELET COUNT, AUTOMATED 331 10^3/uL (150-450); RED BLOOD COUNT 4.84 10^6/uL (4.30-6.10)
[2022-08-14 07:09] LABS: BLOOD UREA NITROGEN 12 MG/DL (9-23); CALCIUM LEVEL 8.2 MG/DL (8.3-10.6); CARBON DIOXIDE LEVEL 28 MMOL/L (20-31); CHLORIDE LEVEL 106 MMOL/L (98-107); CREATININE FOR GFR 0.35 MG/DL (0.70-1.30); GLOMERULAR FILTRATION RATE > 60.0 (>49); GLUCOSE, FASTING 123 MG/DL (74-106); POTASSIUM SERUM 4.2 MMOL/L (3.5-5.1); SODIUM LEVEL 139 MMOL/L (136-145)
[2022-08-15 05:50] LABS: BASO # 0.1 10^3/uL (0.0-0.2); BASO % 0.8 % (0.0-1.0); EOS # 0.5 10^3/uL (0.0-0.5); EOS % 4.8 % (0.0-3.0); HEMATOCRIT 37.1 % (42.0-52.0); HEMOGLOBIN 11.3 g/dl (13.5-17.5); LYMPH % 18.5 % (24.0-44.0); MEAN CORPUSCULAR HEMOGLOBIN 23.7 pg (27.0-33.0); MEAN CORPUSCULAR HGB CONC 30.5 g/dl (32.0-36.5); MEAN CORPUSCULAR VOLUME 77.8 fl (80.0-96.0); MONO # 0.7 10^3/uL (0.0-0.8); MONO % 6.5 % (2.0-8.0); NEUTROPHILS # 7.3 10^3/uL (1.5-8.5); NEUTROPHILS % 68.7 % (36.0-66.0); PLATELET COUNT, AUTOMATED 306 10^3/uL (150-450); RED BLOOD COUNT 4.77 10^6/uL (4.30-6.10); WHITE BLOOD COUNT 10.6 10^3/uL (4.0-10.0)
[2022-08-15 06:05] VITALS: BP 124/66; TEMP 98.4; O2SAT 96
[2022-08-15 06:16] LABS: BLOOD UREA NITROGEN 11 MG/DL (9-23); CALCIUM LEVEL 8.1 MG/DL (8.3-10.6); CARBON DIOXIDE LEVEL 28 MMOL/L (20-31); CHLORIDE LEVEL 105 MMOL/L (98-107); CREATININE FOR GFR 0.39 MG/DL (0.70-1.30); GLOMERULAR FILTRATION RATE > 60.0 (>49); GLUCOSE, FASTING 123 MG/DL (74-106); POTASSIUM SERUM 4.2 MMOL/L (3.5-5.1); SODIUM LEVEL 140 MMOL/L (136-145)
[2022-08-15 13:13] VITALS: BP 124/66; TEMP 98.4; O2SAT 96
[2022-08-16 05:11] VITALS: BP 121/67; TEMP 98.1; O2SAT 98
[2022-08-16 07:00] VITALS: BP 121/67; TEMP 98.1; O2SAT 98
[2022-08-17 05:51] VITALS: BP 116/61; TEMP 98.8; O2SAT 96
[2022-08-18 05:49] VITALS: BP 115/61; TEMP 97.9; O2SAT 94
[2022-08-19 06:04] VITALS: BP 116/58; TEMP 97.5; O2SAT 95
[2022-08-19 17:49] LABS: BASO # 0.1 10^3/uL (0.0-0.2); BASO % 0.9 % (0.0-1.0); EOS # 0.5 10^3/uL (0.0-0.5); EOS % 4.8 % (0.0-3.0); HEMATOCRIT 36.1 % (42.0-52.0); HEMOGLOBIN 11.1 g/dl (13.5-17.5); LYMPH # 2.1 10^3/uL (1.5-5.0); LYMPH % 21.9 % (24.0-44.0); MEAN CORPUSCULAR HEMOGLOBIN 23.6 pg (27.0-33.0); MEAN CORPUSCULAR HGB CONC 30.7 g/dl (32.0-36.5); MEAN CORPUSCULAR VOLUME 76.8 fl (80.0-96.0); MONO # 0.8 10^3/uL (0.0-0.8); NEUTROPHILS # 6.2 10^3/uL (1.5-8.5); NEUTROPHILS % 63.9 % (36.0-66.0); PLATELET COUNT, AUTOMATED 345 10^3/uL (150-450); WHITE BLOOD COUNT 9.7 10^3/uL (4.0-10.0)
[2022-08-19 18:07] LABS: INR 1.06
[2022-08-19 18:08] LABS: PARTIAL THROMBOPLASTIN TIME 33.4 SECONDS (24.8-34.2)
[2022-08-19 18:10] LABS: ALBUMIN 2.6 G/DL (3.2-5.2); ALKALINE PHOSPHATASE 92 U/L (46-116); ALT/SGPT 16 U/L (7.0-40); AST/SGOT 13 U/L (<34); BILIRUBIN,TOTAL 0.3 MG/DL (0.3-1.2); BLOOD UREA NITROGEN 17 MG/DL (9-23); CALCIUM LEVEL 8.3 MG/DL (8.3-10.6); CARBON DIOXIDE LEVEL 28 MMOL/L (20-31); CHLORIDE LEVEL 105 MMOL/L (98-107); CREATININE FOR GFR 0.34 MG/DL (0.70-1.30); GLOMERULAR FILTRATION RATE > 60.0 (>49); GLUCOSE, FASTING 118 MG/DL (74-106); POTASSIUM SERUM 4.1 MMOL/L (3.5-5.1); SODIUM LEVEL 140 MMOL/L (136-145)
[2022-08-19 18:21] LABS: ERYTHROCYTE SEDIMENTATION RATE 111 mm/hr (0-20)
[2022-08-19] MEDS: SILVER NITRATE APPLICATOR (1 = QTY 10) TOP ONE (18:25)
[2022-08-19 19:54] LABS: D-DIMER QUANT 387.09 ng/ml (<500); LDH LACTATE DEHYDROGENASE 118 U/L (120-246)
[2022-08-19 19:55] LABS: BILIRUBIN,DIRECT 0.1 MG/DL (<0.4); CPK CREATINE PHOSPHOKINASE 30 U/L (46-171)
[2022-08-19 19:58] LABS: FERRITIN 22.6 NG/ML (10.5-307.3)
[2022-08-20 00:21] LABS: HEMOGLOBIN 10.6 g/dl (13.5-17.5)
[2022-08-20 06:30] VITALS: BP 118/56; TEMP 97.5; O2SAT 97
[2022-08-20 06:30] LABS: HEMOGLOBIN 10.2 g/dl (13.5-17.5)
[2022-08-20 11:57] LABS: HEMATOCRIT 34.8 % (42.0-52.0); HEMOGLOBIN 10.5 g/dl (13.5-17.5)
[2022-08-20 18:33] LABS: HEMATOCRIT 34.9 % (42.0-52.0); HEMOGLOBIN 10.5 g/dl (13.5-17.5)
[2022-08-21 06:00] VITALS: BP 123/62; TEMP 97.7; O2SAT 96
[2022-08-21] MEDS: APIXABAN 5 MG TAB (ELIQUIS) PO SCH (11:20)
[2022-08-21] MEDS: ASPIRIN 81MG CHEW TABLET PO SCH (11:20)
[2022-08-22 06:00] VITALS: BP 116/62; TEMP 97; O2SAT 98
[2022-08-23 06:00] VITALS: BP 110/58; TEMP 97.9; O2SAT 95
[2022-08-24 05:37] VITALS: BP 111/61; TEMP 97.9; O2SAT 96
[2022-08-25 06:20] VITALS: BP 111/61; TEMP 97.7; O2SAT 97
[2022-08-26 06:16] VITALS: BP 114/59; TEMP 98.8; O2SAT 96
[2022-08-27 06:19] VITALS: BP 121/58; TEMP 98.2; O2SAT 96
[2022-08-28 06:07] VITALS: BP 121/51; TEMP 98.8; O2SAT 96
[2022-08-29 06:25] VITALS: BP 118/58; TEMP 98.8; O2SAT 96
[2022-08-30 06:17] VITALS: BP 117/60; TEMP 98.1; O2SAT 97
[2022-08-31 06:30] VITALS: BP 118/62; TEMP 97.3; O2SAT 96
[2022-09-01 06:26] VITALS: BP 121/66; TEMP 97.7; O2SAT 98
[2022-09-02 06:24] VITALS: BP 99/58; TEMP 98.4; O2SAT 98
[2022-09-02 10:25] VITALS: BP 120/65
[2022-09-03 06:49] VITALS: BP 108/63; TEMP 98.1; O2SAT 96
[2022-09-04 06:00] VITALS: BP 113/65; TEMP 97.9; O2SAT 92
[2022-09-05 06:00] VITALS: BP 111/63; TEMP 97; O2SAT 93
[2022-09-06 06:00] VITALS: BP 133/62; TEMP 98.6; O2SAT 92
[2022-09-07 05:49] VITALS: BP 114/63; TEMP 97.3; O2SAT 97
[2022-09-08 06:11] VITALS: BP 113/65; TEMP 97.7; O2SAT 96
[2022-09-09 06:36] VITALS: BP 116/65; TEMP 98.1; O2SAT 97
[2022-09-10 06:11] VITALS: BP 116/57; TEMP 98.1; O2SAT 96
[2022-09-11 06:43] VITALS: BP 114/65; TEMP 98.1; O2SAT 96
[2022-09-12 06:00] VITALS: BP 110/56; TEMP 97.9; O2SAT 95
[2022-09-13 06:00] VITALS: BP 126/69; TEMP 97.5; O2SAT 96
[2022-09-14 06:00] VITALS: BP 124/69; TEMP 98.1; O2SAT 97
[2022-09-15 06:25] VITALS: BP 123/67; TEMP 98.2; O2SAT 96
[2022-09-16 06:13] VITALS: BP 115/59; TEMP 98.2; O2SAT 96
[2022-09-17 06:41] VITALS: BP 128/60; TEMP 97.3; O2SAT 96
[2022-09-18 06:05] VITALS: BP 120/57; TEMP 98.8; O2SAT 96
[2022-09-19 05:57] VITALS: BP 131/68; TEMP 97.5; O2SAT 97
[2022-09-20 06:38] VITALS: BP 127/65; TEMP 98.2; O2SAT 95
[2022-09-21] VITALS (8 sets, daily range): BP systolic 114–152; BP diastolic 56–78; TEMP 97.5–102.2; O2SAT 94–98
[2022-09-21 11:43] LABS: BASO # 0.1 10^3/uL (0.0-0.2); BASO % 0.5 % (0.0-1.0); EOS # 0.1 10^3/uL (0.0-0.5); EOS % 0.9 % (0.0-3.0); HEMOGLOBIN 10.8 g/dl (13.5-17.5); LYMPH # 0.9 10^3/uL (1.5-5.0); LYMPH % 9.5 % (24.0-44.0); MEAN CORPUSCULAR HEMOGLOBIN 23.3 pg (27.0-33.0); MEAN CORPUSCULAR VOLUME 77.8 fl (80.0-96.0); MONO # 0.5 10^3/uL (0.0-0.8); MONO % 5.2 % (2.0-8.0); NEUTROPHILS # 7.5 10^3/uL (1.5-8.5); NEUTROPHILS % 82.6 % (36.0-66.0); PLATELET COUNT, AUTOMATED 290 10^3/uL (150-450); RED BLOOD COUNT 4.63 10^6/uL (4.30-6.10); WHITE BLOOD COUNT 9.1 10^3/uL (4.0-10.0)
[2022-09-21] MEDS: NS 1,000 ML IV SCH (11:48)
[2022-09-21] MEDS: CEFEPIME HCL 1 GM in D5W MINI-BAG PLUS 50 ML IV SCH (11:48)
[2022-09-21 12:03] LABS: ALBUMIN 2.5 G/DL (3.2-5.2); ALKALINE PHOSPHATASE 86 U/L (46-116); ALT/SGPT 14 U/L (7.0-40); AST/SGOT 9 U/L (<34); BILIRUBIN,TOTAL 0.6 MG/DL (0.3-1.2); BLOOD UREA NITROGEN 17 MG/DL (9-23); CARBON DIOXIDE LEVEL 25 MMOL/L (20-31); CHLORIDE LEVEL 106 MMOL/L (98-107); CREATININE FOR GFR 0.39 MG/DL (0.70-1.30); GLOMERULAR FILTRATION RATE > 60.0 (>49); GLUCOSE, FASTING 146 MG/DL (74-106); SODIUM LEVEL 138 MMOL/L (136-145); TOTAL PROTEIN 6.7 G/DL (5.7-8.2)
[2022-09-21 14:20] LABS: ERYTHROCYTE SEDIMENTATION RATE 102 mm/hr (0-20)
[2022-09-21] MEDS: LACTOBACILLUS ACIDOPHILUS CAP (BACID) PO SCH (18:40)
[2022-09-21] MEDS: KETOROLAC 30 MG/ML 1ML VIAL IV ONE (18:42)
[2022-09-21] MEDS: AVIBACTAM IV SCH (22:19)
[2022-09-21] MEDS: CEFTAZIDIME IV SCH (22:19)
[2022-09-21] MEDS: D5W MINI IV SCH (22:19)
[2022-09-22 06:12] LABS: MEAN CORPUSCULAR HGB CONC 29.4 g/dl (32.0-36.5); MEAN CORPUSCULAR VOLUME 78.2 fl (80.0-96.0); PLATELET COUNT, AUTOMATED 240 10^3/uL (150-450); RED BLOOD COUNT 4.35 10^6/uL (4.30-6.10); WHITE BLOOD COUNT 5.1 10^3/uL (4.0-10.0)
[2022-09-22 06:16] LABS: ALBUMIN 2.2 G/DL (3.2-5.2); ALKALINE PHOSPHATASE 80 U/L (46-116); ALT/SGPT < 9 U/L (7.0-40); AST/SGOT < 8 U/L (<34); BILIRUBIN,TOTAL 0.3 MG/DL (0.3-1.2); BLOOD UREA NITROGEN 21 MG/DL (9-23); CALCIUM LEVEL 7.7 MG/DL (8.3-10.6); CARBON DIOXIDE LEVEL 28 MMOL/L (20-31); CHLORIDE LEVEL 110 MMOL/L (98-107); CREATININE FOR GFR 0.41 MG/DL (0.70-1.30); GLOMERULAR FILTRATION RATE > 60.0 (>49); GLUCOSE, FASTING 153 MG/DL (74-106); POTASSIUM SERUM 3.7 MMOL/L (3.5-5.1); SODIUM LEVEL 142 MMOL/L (136-145); TOTAL PROTEIN 6.2 G/DL (5.7-8.2)
[2022-09-22 06:27] VITALS: BP 118/67; TEMP 97.2; O2SAT 96
[2022-09-22 21:41] VITALS: BP 132/74; TEMP 98.1; O2SAT 97
[2022-09-23 06:10] LABS: ALBUMIN 2.3 G/DL (3.2-5.2); ALKALINE PHOSPHATASE 75 U/L (46-116); ALT/SGPT 24 U/L (7.0-40); AST/SGOT 25 U/L (<34); BILIRUBIN,TOTAL 0.3 MG/DL (0.3-1.2); BLOOD UREA NITROGEN 16 MG/DL (9-23); CALCIUM LEVEL 8.3 MG/DL (8.3-10.6); CARBON DIOXIDE LEVEL 28 MMOL/L (20-31); CHLORIDE LEVEL 108 MMOL/L (98-107); CREATININE FOR GFR 0.31 MG/DL (0.70-1.30); GLOMERULAR FILTRATION RATE > 60.0 (>49); GLUCOSE, FASTING 123 MG/DL (74-106); POTASSIUM SERUM 3.8 MMOL/L (3.5-5.1); SODIUM LEVEL 140 MMOL/L (136-145)
[2022-09-23 06:11] VITALS: BP 135/69; TEMP 97.8; O2SAT 95
[2022-09-23 06:50] LABS: HEMOGLOBIN 10.4 g/dl (13.5-17.5); MEAN CORPUSCULAR HEMOGLOBIN 23.3 pg (27.0-33.0); MEAN CORPUSCULAR HGB CONC 29.7 g/dl (32.0-36.5); MEAN CORPUSCULAR VOLUME 78.5 fl (80.0-96.0); PLATELET COUNT, AUTOMATED 260 10^3/uL (150-450); RED BLOOD COUNT 4.46 10^6/uL (4.30-6.10); WHITE BLOOD COUNT 5.4 10^3/uL (4.0-10.0)
[2022-09-23 14:00] VITALS: BP 122/61; TEMP 97.8; O2SAT 97
[2022-09-23] MEDS: CEFDINIR 300 MG CAP (OMNICEF) PO SCH (21:42)
[2022-09-23 21:47] VITALS: BP 128/63; TEMP 97; O2SAT 94
[2022-09-24 06:14] VITALS: BP 113/62; TEMP 97.6; O2SAT 97
[2022-09-24 06:35] LABS: HEMATOCRIT 34.9 % (42.0-52.0); HEMOGLOBIN 10.2 g/dl (13.5-17.5); MEAN CORPUSCULAR HEMOGLOBIN 23.2 pg (27.0-33.0); MEAN CORPUSCULAR HGB CONC 29.2 g/dl (32.0-36.5); MEAN CORPUSCULAR VOLUME 79.5 fl (80.0-96.0); PLATELET COUNT, AUTOMATED 276 10^3/uL (150-450); RED BLOOD COUNT 4.39 10^6/uL (4.30-6.10); WHITE BLOOD COUNT 4.5 10^3/uL (4.0-10.0)
[2022-09-24 06:58] LABS: ALBUMIN 2.3 G/DL (3.2-5.2); ALKALINE PHOSPHATASE 87 U/L (46-116); ALT/SGPT < 9 U/L (7.0-40); AST/SGOT 10 U/L (<34); BILIRUBIN,TOTAL 0.2 MG/DL (0.3-1.2); BLOOD UREA NITROGEN 18 MG/DL (9-23); CALCIUM LEVEL 8.4 MG/DL (8.3-10.6); CARBON DIOXIDE LEVEL 31 MMOL/L (20-31); CHLORIDE LEVEL 107 MMOL/L (98-107); CREATININE FOR GFR 0.29 MG/DL (0.70-1.30); GLOMERULAR FILTRATION RATE > 60.0 (>49); GLUCOSE, FASTING 131 MG/DL (74-106); POTASSIUM SERUM 3.9 MMOL/L (3.5-5.1); SODIUM LEVEL 143 MMOL/L (136-145); TOTAL PROTEIN 6.6 G/DL (5.7-8.2)
[2022-09-25 05:59] VITALS: BP 111/63; TEMP 98.1; O2SAT 96
[2022-09-25 06:26] LABS: HEMOGLOBIN 10.4 g/dl (13.5-17.5); MEAN CORPUSCULAR HEMOGLOBIN 23.3 pg (27.0-33.0); MEAN CORPUSCULAR HGB CONC 29.7 g/dl (32.0-36.5); MEAN CORPUSCULAR VOLUME 78.5 fl (80.0-96.0); PLATELET COUNT, AUTOMATED 294 10^3/uL (150-450); RED BLOOD COUNT 4.46 10^6/uL (4.30-6.10); WHITE BLOOD COUNT 5.6 10^3/uL (4.0-10.0)
[2022-09-25 06:49] LABS: ALBUMIN 2.3 G/DL (3.2-5.2); ALKALINE PHOSPHATASE 85 U/L (46-116); ALT/SGPT 21 U/L (7.0-40); AST/SGOT 15 U/L (<34); BILIRUBIN,TOTAL 0.3 MG/DL (0.3-1.2); BLOOD UREA NITROGEN 13 MG/DL (9-23); CALCIUM LEVEL 8.9 MG/DL (8.3-10.6); CARBON DIOXIDE LEVEL 29 MMOL/L (20-31); CHLORIDE LEVEL 106 MMOL/L (98-107); CREATININE FOR GFR 0.31 MG/DL (0.70-1.30); GLOMERULAR FILTRATION RATE > 60.0 (>49); GLUCOSE, FASTING 108 MG/DL (74-106); POTASSIUM SERUM 4.2 MMOL/L (3.5-5.1); SODIUM LEVEL 140 MMOL/L (136-145); TOTAL PROTEIN 6.5 G/DL (5.7-8.2)
[2022-09-26 06:04] VITALS: BP 128/65; TEMP 98.1; O2SAT 96
[2022-09-26 06:23] LABS: HEMATOCRIT 37.3 % (42.0-52.0); HEMOGLOBIN 10.9 g/dl (13.5-17.5); MEAN CORPUSCULAR HEMOGLOBIN 23.2 pg (27.0-33.0); MEAN CORPUSCULAR HGB CONC 29.2 g/dl (32.0-36.5); MEAN CORPUSCULAR VOLUME 79.4 fl (80.0-96.0); PLATELET COUNT, AUTOMATED 325 10^3/uL (150-450); WHITE BLOOD COUNT 7.1 10^3/uL (4.0-10.0)
[2022-09-26 06:45] LABS: ALBUMIN 2.5 G/DL (3.2-5.2); ALKALINE PHOSPHATASE 92 U/L (46-116); ALT/SGPT 27 U/L (7.0-40); AST/SGOT 21 U/L (<34); BILIRUBIN,TOTAL 0.3 MG/DL (0.3-1.2); BLOOD UREA NITROGEN 18 MG/DL (9-23); CALCIUM LEVEL 8.3 MG/DL (8.3-10.6); CARBON DIOXIDE LEVEL 30 MMOL/L (20-31); CHLORIDE LEVEL 106 MMOL/L (98-107); CREATININE FOR GFR 0.34 MG/DL (0.70-1.30); GLOMERULAR FILTRATION RATE > 60.0 (>49); GLUCOSE, FASTING 131 MG/DL (74-106); POTASSIUM SERUM 4.3 MMOL/L (3.5-5.1); SODIUM LEVEL 140 MMOL/L (136-145); TOTAL PROTEIN 6.7 G/DL (5.7-8.2)
[2022-09-27 06:11] VITALS: BP 119/64; TEMP 97.2; O2SAT 99
[2022-09-27 06:11] LABS: HEMATOCRIT 34.5 % (42.0-52.0); HEMOGLOBIN 10.2 g/dl (13.5-17.5); MEAN CORPUSCULAR HEMOGLOBIN 23.3 pg (27.0-33.0); MEAN CORPUSCULAR HGB CONC 29.6 g/dl (32.0-36.5); MEAN CORPUSCULAR VOLUME 78.8 fl (80.0-96.0); PLATELET COUNT, AUTOMATED 331 10^3/uL (150-450); RED BLOOD COUNT 4.38 10^6/uL (4.30-6.10); WHITE BLOOD COUNT 8.9 10^3/uL (4.0-10.0)
[2022-09-27 06:21] LABS: ALBUMIN 2.6 G/DL (3.2-5.2); ALKALINE PHOSPHATASE 89 U/L (46-116); ALT/SGPT 24 U/L (7.0-40); AST/SGOT < 8 U/L (<34); BILIRUBIN,TOTAL 0.3 MG/DL (0.3-1.2); BLOOD UREA NITROGEN 18 MG/DL (9-23); CALCIUM LEVEL 8.3 MG/DL (8.3-10.6); CARBON DIOXIDE LEVEL 31 MMOL/L (20-31); CHLORIDE LEVEL 106 MMOL/L (98-107); CREATININE FOR GFR 0.33 MG/DL (0.70-1.30); GLOMERULAR FILTRATION RATE > 60.0 (>49); GLUCOSE, FASTING 137 MG/DL (74-106); POTASSIUM SERUM 4.3 MMOL/L (3.5-5.1); SODIUM LEVEL 140 MMOL/L (136-145); TOTAL PROTEIN 6.7 G/DL (5.7-8.2)
[2022-09-28 05:57] VITALS: BP 106/65; TEMP 97.9; O2SAT 95
[2022-09-28 07:32] LABS: HEMATOCRIT 35.9 % (42.0-52.0); HEMOGLOBIN 10.5 g/dl (13.5-17.5); MEAN CORPUSCULAR HEMOGLOBIN 22.9 pg (27.0-33.0); MEAN CORPUSCULAR HGB CONC 29.2 g/dl (32.0-36.5); MEAN CORPUSCULAR VOLUME 78.2 fl (80.0-96.0); PLATELET COUNT, AUTOMATED 352 10^3/uL (150-450); RED BLOOD COUNT 4.59 10^6/uL (4.30-6.10); WHITE BLOOD COUNT 7.9 10^3/uL (4.0-10.0)
[2022-09-28 08:24] LABS: ALBUMIN 2.5 G/DL (3.2-5.2); ALKALINE PHOSPHATASE 91 U/L (46-116); ALT/SGPT 24 U/L (7.0-40); AST/SGOT 15 U/L (<34); BILIRUBIN,TOTAL 0.3 MG/DL (0.3-1.2); BLOOD UREA NITROGEN 17 MG/DL (9-23); CALCIUM LEVEL 9.1 MG/DL (8.3-10.6); CARBON DIOXIDE LEVEL 28 MMOL/L (20-31); CHLORIDE LEVEL 106 MMOL/L (98-107); CREATININE FOR GFR 0.33 MG/DL (0.70-1.30); GLOMERULAR FILTRATION RATE > 60.0 (>49); GLUCOSE, FASTING 113 MG/DL (74-106); POTASSIUM SERUM 4.3 MMOL/L (3.5-5.1); SODIUM LEVEL 139 MMOL/L (136-145); TOTAL PROTEIN 6.6 G/DL (5.7-8.2)
[2022-09-29 07:00] VITALS: BP 106/65; TEMP 97.9; O2SAT 95
[2022-09-30 06:15] VITALS: BP 109/64; TEMP 98.2; O2SAT 96
[2022-10-01 06:48] VITALS: BP 128/73; TEMP 98.6; O2SAT 96
[2022-10-02 06:42] VITALS: BP 117/56; TEMP 98.2; O2SAT 96
[2022-10-03 05:50] VITALS: BP 114/52; TEMP 98.7; O2SAT 95
[2022-10-03] MEDS: MOM 30ML SUSPENSION UDC PO ONE (09:22)
[2022-10-04 05:52] VITALS: BP 124/60; TEMP 98.1; O2SAT 96
[2022-10-05 06:16] LABS: BASO # 0.1 10^3/uL (0.0-0.2); BASO % 1.4 % (0.0-1.0); EOS # 0.5 10^3/uL (0.0-0.5); HEMATOCRIT 38.3 % (42.0-52.0); HEMOGLOBIN 11.3 g/dl (13.5-17.5); LYMPH # 1.9 10^3/uL (1.5-5.0); LYMPH % 21.3 % (24.0-44.0); MEAN CORPUSCULAR HEMOGLOBIN 23.4 pg (27.0-33.0); MEAN CORPUSCULAR HGB CONC 29.5 g/dl (32.0-36.5); MEAN CORPUSCULAR VOLUME 79.3 fl (80.0-96.0); MONO # 0.6 10^3/uL (0.0-0.8); MONO % 7.2 % (2.0-8.0); NEUTROPHILS # 5.6 10^3/uL (1.5-8.5); NEUTROPHILS % 63.6 % (36.0-66.0); PLATELET COUNT, AUTOMATED 304 10^3/uL (150-450); RED BLOOD COUNT 4.83 10^6/uL (4.30-6.10); WHITE BLOOD COUNT 8.8 10^3/uL (4.0-10.0)
[2022-10-05 06:42] VITALS: BP 119/59; TEMP 98.2; O2SAT 95
[2022-10-05 06:50] LABS: BLOOD UREA NITROGEN 19 MG/DL (9-23); CALCIUM LEVEL 8.4 MG/DL (8.3-10.6); CARBON DIOXIDE LEVEL 27 MMOL/L (20-31); CHLORIDE LEVEL 107 MMOL/L (98-107); CREATININE FOR GFR 0.31 MG/DL (0.70-1.30); GLOMERULAR FILTRATION RATE > 60.0 (>49); GLUCOSE, FASTING 123 MG/DL (74-106); MAGNESIUM LEVEL 1.9 MG/DL (1.8-2.4); POTASSIUM SERUM 4.1 MMOL/L (3.5-5.1); SODIUM LEVEL 140 MMOL/L (136-145)
[2022-10-06 05:21] VITALS: BP 115/70; TEMP 97.7; O2SAT 94
[2022-10-07 05:47] VITALS: BP 114/70; TEMP 97.7; O2SAT 96
[2022-10-08 06:30] VITALS: BP 119/66; TEMP 97; O2SAT 97
[2022-10-08 14:55] VITALS: BP 130/65; TEMP 97.9; O2SAT 96
[2022-10-08 18:07] LABS: BASO # 0.1 10^3/uL (0.0-0.2); BASO % 0.4 % (0.0-1.0); EOS % 0.2 % (0.0-3.0); HEMOGLOBIN 11.9 g/dl (13.5-17.5); LYMPH # 0.7 10^3/uL (1.5-5.0); LYMPH % 3.7 % (24.0-44.0); MEAN CORPUSCULAR HEMOGLOBIN 23.8 pg (27.0-33.0); MEAN CORPUSCULAR HGB CONC 30.5 g/dl (32.0-36.5); MONO % 5.3 % (2.0-8.0); NEUTROPHILS # 17.1 10^3/uL (1.5-8.5); PLATELET COUNT, AUTOMATED 321 10^3/uL (150-450)
[2022-10-08 18:44] LABS: ALBUMIN 2.8 G/DL (3.2-5.2); ALKALINE PHOSPHATASE 101 U/L (46-116); ALT/SGPT 12 U/L (7.0-40); AST/SGOT < 8 U/L (<34); BILIRUBIN,TOTAL 0.7 MG/DL (0.3-1.2); BLOOD UREA NITROGEN 17 MG/DL (9-23); CALCIUM LEVEL 8.5 MG/DL (8.3-10.6); CARBON DIOXIDE LEVEL 24 MMOL/L (20-31); CHLORIDE LEVEL 106 MMOL/L (98-107); CREATININE FOR GFR 0.36 MG/DL (0.70-1.30); GLOMERULAR FILTRATION RATE > 60.0 (>49); GLUCOSE, FASTING 171 MG/DL (74-106); POTASSIUM SERUM 4.1 MMOL/L (3.5-5.1); SODIUM LEVEL 138 MMOL/L (136-145); TOTAL PROTEIN 7.1 G/DL (5.7-8.2)
[2022-10-08] MEDS: NS 1,000 ML IV SCH (19:07)
[2022-10-08] MEDS: CEFEPIME HCL 1 GM in D5W MINI-BAG PLUS 50 ML IV SCH (19:08)
[2022-10-08] MEDS: AZITHROMYCIN INJ 500 MG, VIAL MATE ADAPTER 1 EACH in NS 250 ML IV SCH (19:54)
[2022-10-08 20:00] VITALS: BP 115/62; TEMP 98.3; O2SAT 96
[2022-10-08] MEDS: VANCOMYCIN HCL 1,000 MG, VIAL MATE ADAPTER 1 EACH in D5W 250 ML IV ONE ×2 (21:27→22:31)
[2022-10-09] MEDS: VANCOMYCIN HCL 1,000 MG, VIAL MATE ADAPTER 1 EACH in D5W 250 ML IV SCH (04:59)
[2022-10-09 06:02] VITALS: BP 117/63; TEMP 97.7; O2SAT 96
[2022-10-09 06:37] LABS: BASO # 0.1 10^3/uL (0.0-0.2); BASO % 0.7 % (0.0-1.0); EOS # 0.4 10^3/uL (0.0-0.5); HEMOGLOBIN 11.3 g/dl (13.5-17.5); LYMPH # 1.8 10^3/uL (1.5-5.0); MEAN CORPUSCULAR HEMOGLOBIN 23.6 pg (27.0-33.0); MEAN CORPUSCULAR HGB CONC 29.7 g/dl (32.0-36.5); MEAN CORPUSCULAR VOLUME 79.5 fl (80.0-96.0); MONO # 0.8 10^3/uL (0.0-0.8); MONO % 6.7 % (2.0-8.0); NEUTROPHILS % 74.4 % (36.0-66.0); PLATELET COUNT, AUTOMATED 264 10^3/uL (150-450); RED BLOOD COUNT 4.78 10^6/uL (4.30-6.10); WHITE BLOOD COUNT 12.2 10^3/uL (4.0-10.0)
[2022-10-09 07:13] LABS: BLOOD UREA NITROGEN 10 MG/DL (9-23); CALCIUM LEVEL 7.8 MG/DL (8.3-10.6); CARBON DIOXIDE LEVEL 24 MMOL/L (20-31); CHLORIDE LEVEL 107 MMOL/L (98-107); CREATININE FOR GFR 0.36 MG/DL (0.70-1.30); GLOMERULAR FILTRATION RATE > 60.0 (>49); GLUCOSE, FASTING 139 MG/DL (74-106); MAGNESIUM LEVEL 1.8 MG/DL (1.8-2.4); POTASSIUM SERUM 3.5 MMOL/L (3.5-5.1); SODIUM LEVEL 141 MMOL/L (136-145)
[2022-10-09 14:00] VITALS: BP 124/61; TEMP 97.7; O2SAT 94
[2022-10-09 19:45] VITALS: BP 119/64; TEMP 98.4; O2SAT 93
[2022-10-10 06:32] LABS: BASO # 0.1 10^3/uL (0.0-0.2); BASO % 0.9 % (0.0-1.0); EOS # 0.4 10^3/uL (0.0-0.5); EOS % 5.6 % (0.0-3.0); HEMATOCRIT 35.2 % (42.0-52.0); HEMOGLOBIN 10.5 g/dl (13.5-17.5); LYMPH % 14.6 % (24.0-44.0); MEAN CORPUSCULAR HGB CONC 29.8 g/dl (32.0-36.5); MEAN CORPUSCULAR VOLUME 80.4 fl (80.0-96.0); MONO # 0.7 10^3/uL (0.0-0.8); MONO % 9.7 % (2.0-8.0); NEUTROPHILS # 4.8 10^3/uL (1.5-8.5); NEUTROPHILS % 68.9 % (36.0-66.0); PLATELET COUNT, AUTOMATED 256 10^3/uL (150-450); RED BLOOD COUNT 4.38 10^6/uL (4.30-6.10)
[2022-10-10 06:45] VITALS: BP 135/71; TEMP 97.7; O2SAT 92
[2022-10-10 06:58] LABS: BLOOD UREA NITROGEN 14 MG/DL (9-23); CALCIUM LEVEL 7.9 MG/DL (8.3-10.6); CARBON DIOXIDE LEVEL 24 MMOL/L (20-31); CHLORIDE LEVEL 107 MMOL/L (98-107); CREATININE FOR GFR 0.37 MG/DL (0.70-1.30); GLOMERULAR FILTRATION RATE > 60.0 (>49); GLUCOSE, FASTING 131 MG/DL (74-106); MAGNESIUM LEVEL 1.9 MG/DL (1.8-2.4); POTASSIUM SERUM 3.9 MMOL/L (3.5-5.1); SODIUM LEVEL 140 MMOL/L (136-145)
[2022-10-10 14:00] VITALS: BP 128/61; TEMP 97.9; O2SAT 97
[2022-10-10 19:58] VITALS: BP 113/60; TEMP 98.8; O2SAT 96
[2022-10-11 06:20] VITALS: BP 126/67; TEMP 97.5; O2SAT 97
[2022-10-11 06:21] LABS: BASO # 0.1 10^3/uL (0.0-0.2); BASO % 1.2 % (0.0-1.0); EOS # 0.3 10^3/uL (0.0-0.5); EOS % 5.8 % (0.0-3.0); HEMATOCRIT 35.1 % (42.0-52.0); HEMOGLOBIN 10.5 g/dl (13.5-17.5); LYMPH % 19.4 % (24.0-44.0); MEAN CORPUSCULAR HEMOGLOBIN 24.1 pg (27.0-33.0); MEAN CORPUSCULAR HGB CONC 29.9 g/dl (32.0-36.5); MEAN CORPUSCULAR VOLUME 80.5 fl (80.0-96.0); MONO # 0.5 10^3/uL (0.0-0.8); MONO % 10.1 % (2.0-8.0); NEUTROPHILS # 3.3 10^3/uL (1.5-8.5); NEUTROPHILS % 63.1 % (36.0-66.0); PLATELET COUNT, AUTOMATED 252 10^3/uL (150-450); RED BLOOD COUNT 4.36 10^6/uL (4.30-6.10); WHITE BLOOD COUNT 5.2 10^3/uL (4.0-10.0)
[2022-10-11 06:52] LABS: BLOOD UREA NITROGEN 16 MG/DL (9-23); CARBON DIOXIDE LEVEL 26 MMOL/L (20-31); CHLORIDE LEVEL 108 MMOL/L (98-107); CREATININE FOR GFR 0.34 MG/DL (0.70-1.30); GLOMERULAR FILTRATION RATE > 60.0 (>49); GLUCOSE, FASTING 139 MG/DL (74-106); MAGNESIUM LEVEL 1.8 MG/DL (1.8-2.4); SODIUM LEVEL 142 MMOL/L (136-145)
[2022-10-11 13:56] VITALS: BP 127/66; TEMP 98.1; O2SAT 97
[2022-10-11 20:00] VITALS: BP 122/67; TEMP 98.6; O2SAT 97
[2022-10-12 06:25] VITALS: BP 128/67; TEMP 97.9; O2SAT 97
[2022-10-12 06:28] LABS: BASO # 0.1 10^3/uL (0.0-0.2); BASO % 1.1 % (0.0-1.0); EOS # 0.4 10^3/uL (0.0-0.5); EOS % 8.5 % (0.0-3.0); HEMATOCRIT 36.3 % (42.0-52.0); HEMOGLOBIN 10.8 g/dl (13.5-17.5); MEAN CORPUSCULAR HEMOGLOBIN 23.7 pg (27.0-33.0); MEAN CORPUSCULAR HGB CONC 29.8 g/dl (32.0-36.5); MEAN CORPUSCULAR VOLUME 79.8 fl (80.0-96.0); MONO # 0.5 10^3/uL (0.0-0.8); MONO % 11.2 % (2.0-8.0); NEUTROPHILS # 2.5 10^3/uL (1.5-8.5); PLATELET COUNT, AUTOMATED 255 10^3/uL (150-450); RED BLOOD COUNT 4.55 10^6/uL (4.30-6.10); WHITE BLOOD COUNT 4.4 10^3/uL (4.0-10.0)
[2022-10-12 07:02] LABS: BLOOD UREA NITROGEN 14 MG/DL (9-23); CALCIUM LEVEL 7.9 MG/DL (8.3-10.6); CARBON DIOXIDE LEVEL 26 MMOL/L (20-31); CHLORIDE LEVEL 107 MMOL/L (98-107); CREATININE FOR GFR 0.34 MG/DL (0.70-1.30); GLOMERULAR FILTRATION RATE > 60.0 (>49); GLUCOSE, FASTING 121 MG/DL (74-106); MAGNESIUM LEVEL 1.7 MG/DL (1.8-2.4); POTASSIUM SERUM 4.1 MMOL/L (3.5-5.1); SODIUM LEVEL 141 MMOL/L (136-145)
[2022-10-12 14:00] VITALS: BP 124/67; TEMP 98.1; O2SAT 96
[2022-10-12 20:30] VITALS: BP 124/66; TEMP 97.5; O2SAT 97
[2022-10-12] MEDS: MAGNESIUM OXIDE 400MG TAB (MAG-OX) PO SCH (20:33)
[2022-10-13 05:46] VITALS: BP 102/52; TEMP 97.7; O2SAT 95
[2022-10-13 06:22] LABS: BASO # 0.1 10^3/uL (0.0-0.2); BASO % 1.1 % (0.0-1.0); EOS # 0.5 10^3/uL (0.0-0.5); EOS % 7.5 % (0.0-3.0); HEMATOCRIT 36.1 % (42.0-52.0); HEMOGLOBIN 10.8 g/dl (13.5-17.5); LYMPH # 1.3 10^3/uL (1.5-5.0); LYMPH % 20.8 % (24.0-44.0); MEAN CORPUSCULAR HEMOGLOBIN 23.9 pg (27.0-33.0); MEAN CORPUSCULAR HGB CONC 29.9 g/dl (32.0-36.5); MONO # 0.7 10^3/uL (0.0-0.8); MONO % 11.4 % (2.0-8.0); NEUTROPHILS # 3.6 10^3/uL (1.5-8.5); NEUTROPHILS % 58.9 % (36.0-66.0); PLATELET COUNT, AUTOMATED 259 10^3/uL (150-450); RED BLOOD COUNT 4.51 10^6/uL (4.30-6.10); WHITE BLOOD COUNT 6.1 10^3/uL (4.0-10.0)
[2022-10-13 06:42] LABS: C REACTIVE PROTEIN QUANTITATIV 3.9 MG/DL (<1.0); MAGNESIUM LEVEL 1.8 MG/DL (1.8-2.4)
[2022-10-14 06:15] VITALS: BP 110/59; TEMP 97.9; O2SAT 95
[2022-10-14 06:30] LABS: BASO # 0.1 10^3/uL (0.0-0.2); BASO % 1.3 % (0.0-1.0); EOS # 0.5 10^3/uL (0.0-0.5); EOS % 8.3 % (0.0-3.0); HEMATOCRIT 36.8 % (42.0-52.0); LYMPH # 1.4 10^3/uL (1.5-5.0); LYMPH % 25.9 % (24.0-44.0); MEAN CORPUSCULAR HEMOGLOBIN 23.8 pg (27.0-33.0); MEAN CORPUSCULAR HGB CONC 29.9 g/dl (32.0-36.5); MEAN CORPUSCULAR VOLUME 79.7 fl (80.0-96.0); MONO # 0.5 10^3/uL (0.0-0.8); MONO % 9.7 % (2.0-8.0); NEUTROPHILS % 54.4 % (36.0-66.0); PLATELET COUNT, AUTOMATED 268 10^3/uL (150-450); RED BLOOD COUNT 4.62 10^6/uL (4.30-6.10); WHITE BLOOD COUNT 5.6 10^3/uL (4.0-10.0)
[2022-10-14 06:54] LABS: C REACTIVE PROTEIN QUANTITATIV 4.8 MG/DL (<1.0); MAGNESIUM LEVEL 1.8 MG/DL (1.8-2.4)
[2022-10-15 06:42] VITALS: BP 105/52; TEMP 98.1; O2SAT 96
[2022-10-16 06:09] VITALS: BP 115/60; TEMP 97.9; O2SAT 95
[2022-10-17 05:28] VITALS: BP 116/59; TEMP 97.5; O2SAT 97
[2022-10-18 06:03] VITALS: BP 134/74; TEMP 97.3; O2SAT 98
[2022-10-18 11:20] LABS: HEMATOCRIT 37.4 % (42.0-52.0); HEMOGLOBIN 11.3 g/dl (13.5-17.5); MEAN CORPUSCULAR HEMOGLOBIN 24.1 pg (27.0-33.0); MEAN CORPUSCULAR HGB CONC 30.2 g/dl (32.0-36.5); MEAN CORPUSCULAR VOLUME 79.7 fl (80.0-96.0); PLATELET COUNT, AUTOMATED 269 10^3/uL (150-450); RED BLOOD COUNT 4.69 10^6/uL (4.30-6.10); WHITE BLOOD COUNT 6.6 10^3/uL (4.0-10.0)
[2022-10-19 06:00] VITALS: BP 121/59; TEMP 97.7; O2SAT 96
[2022-10-19 06:35] LABS: HEMATOCRIT 37.8 % (42.0-52.0); HEMOGLOBIN 11.3 g/dl (13.5-17.5); MEAN CORPUSCULAR HEMOGLOBIN 23.8 pg (27.0-33.0); MEAN CORPUSCULAR HGB CONC 29.9 g/dl (32.0-36.5); MEAN CORPUSCULAR VOLUME 79.7 fl (80.0-96.0); PLATELET COUNT, AUTOMATED 284 10^3/uL (150-450); RED BLOOD COUNT 4.74 10^6/uL (4.30-6.10); WHITE BLOOD COUNT 7.3 10^3/uL (4.0-10.0)
[2022-10-20 06:00] VITALS: BP 131/72; TEMP 97.3; O2SAT 99
[2022-10-20] MEDS: ENOXAPARIN 40MG/0.4ML SYRINGE (J1650 PER 10MG) SC SCH (09:39)
[2022-10-21 05:53] VITALS: BP 120/64; TEMP 97.9; O2SAT 96
[2022-10-22 05:57] VITALS: BP 108/62; TEMP 98.8; O2SAT 96
[2022-10-23 06:05] VITALS: BP 122/66; TEMP 97.9; O2SAT 96
[2022-10-24 06:10] VITALS: BP 123/66; TEMP 97.9; O2SAT 96
[2022-10-24 21:41] VITALS: BP 133/65; TEMP 98.1; O2SAT 95
[2022-10-25 06:00] VITALS: BP 126/63; TEMP 97.5; O2SAT 96
[2022-10-25 20:20] VITALS: BP 108/55; TEMP 98.2; O2SAT 97
[2022-10-26 06:21] VITALS: BP 125/60; TEMP 98.1; O2SAT 96
[2022-10-27 06:02] VITALS: BP 127/60; TEMP 97.9; O2SAT 96
[2022-10-28 06:03] VITALS: BP 126/62; TEMP 98.2; O2SAT 97
[2022-10-29 06:33] VITALS: BP 127/62; TEMP 97.9; O2SAT 96
[2022-10-30 06:00] VITALS: BP 120/58; TEMP 97.9; O2SAT 98
[2022-10-31 06:00] VITALS: BP 116/56; TEMP 97.7; O2SAT 96
[2022-11-01 06:00] VITALS: BP 134/63; TEMP 97.7; O2SAT 94
[2022-11-02 05:35] VITALS: BP 119/55; TEMP 97.8; O2SAT 91
[2022-11-03 06:18] VITALS: BP 121/56; TEMP 98.1; O2SAT 97
[2022-11-04 05:49] VITALS: BP 120/61; TEMP 97.5; O2SAT 97
[2022-11-05 05:55] VITALS: BP 124/64; TEMP 97.6; O2SAT 97
[2022-11-06 06:00] VITALS: BP 123/73; TEMP 98.4; O2SAT 97
[2022-11-07 05:45] VITALS: BP 122/71; TEMP 97.2; O2SAT 98
[2022-11-08 06:11] VITALS: BP 119/68; TEMP 97.7; O2SAT 96
[2022-11-09 06:00] VITALS: TEMP 98.1; O2SAT 98
[2022-11-09 06:38] VITALS: BP 121/76; TEMP 97.2; O2SAT 97
[2022-11-10 05:20] VITALS: BP 117/66; TEMP 98.2; O2SAT 97
[2022-11-11 06:04] VITALS: BP 138/72; TEMP 97.9; O2SAT 98
[2022-11-11 19:57] VITALS: BP 133/70; TEMP 98.8; O2SAT 98
[2022-11-12 05:49] VITALS: BP 125/71; TEMP 98.2; O2SAT 98
[2022-11-13 05:53] VITALS: BP 127/70; TEMP 97.9; O2SAT 96
[2022-11-13 13:51] LABS: HEMATOCRIT 46.5 % (42.0-52.0); HEMOGLOBIN 13.9 g/dl (13.5-17.5); MEAN CORPUSCULAR HEMOGLOBIN 24.3 pg (27.0-33.0); MEAN CORPUSCULAR HGB CONC 29.9 g/dl (32.0-36.5); MEAN CORPUSCULAR VOLUME 81.3 fl (80.0-96.0); PLATELET COUNT, AUTOMATED 263 10^3/uL (150-450); RED BLOOD COUNT 5.72 10^6/uL (4.30-6.10); WHITE BLOOD COUNT 8.8 10^3/uL (4.0-10.0)
[2022-11-14 06:00] VITALS: BP 135/65; TEMP 98.1; O2SAT 96
[2022-11-15 06:00] VITALS: BP 130/68; TEMP 97.7; O2SAT 95
[2022-11-16 05:45] VITALS: BP 130/62; TEMP 97.9; O2SAT 97
[2022-11-17 06:02] VITALS: BP 126/64; TEMP 98.4; O2SAT 96
[2022-11-18 06:39] VITALS: BP 127/64; TEMP 98.8; O2SAT 94
[2022-11-19 06:00] VITALS: BP 120/69; TEMP 98.8; O2SAT 98
[2022-11-20 05:47] VITALS: BP 118/62; TEMP 98.1; O2SAT 98
[2022-11-21 05:51] VITALS: BP 134/65; TEMP 97.2; O2SAT 97
[2022-11-22 06:28] VITALS: BP 126/64; TEMP 97; O2SAT 95
[2022-11-23 06:14] VITALS: BP 136/75; TEMP 98.2; O2SAT 98
[2022-11-24 06:03] VITALS: BP 127/58; TEMP 98.8; O2SAT 93
[2022-11-25 05:52] VITALS: BP 141/86; TEMP 97.7; O2SAT 93
[2022-11-26 06:18] VITALS: BP 133/75; TEMP 98.1; O2SAT 97
[2022-11-27 06:00] VITALS: BP 125/64; TEMP 98.2; O2SAT 95
[2022-11-28 06:00] VITALS: BP 120/65; TEMP 97.9; O2SAT 97
[2022-11-29 06:00] VITALS: BP 123/77; TEMP 98.1; O2SAT 95
[2022-11-30 06:35] VITALS: BP 115/66; TEMP 98.2; O2SAT 96
[2022-11-30] MEDS: ALBUTEROL SULFATE 2.5MG/0.5ML INH NEB SOLN NEB SCH (12:10)
[2022-12-01 05:56] VITALS: BP 130/68; TEMP 98.2; O2SAT 97
[2022-12-01 18:56] LABS: HEMATOCRIT 40.7 % (42.0-52.0); HEMOGLOBIN 12.1 g/dl (13.5-17.5); MEAN CORPUSCULAR HEMOGLOBIN 23.9 pg (27.0-33.0); MEAN CORPUSCULAR HGB CONC 29.7 g/dl (32.0-36.5); MEAN CORPUSCULAR VOLUME 80.4 fl (80.0-96.0); PLATELET COUNT, AUTOMATED 319 10^3/uL (150-450); RED BLOOD COUNT 5.06 10^6/uL (4.30-6.10); WHITE BLOOD COUNT 8.3 10^3/uL (4.0-10.0)
[2022-12-01 19:30] LABS: BLOOD UREA NITROGEN 24 MG/DL (9-23); CALCIUM LEVEL 8.4 MG/DL (8.3-10.6); CARBON DIOXIDE LEVEL 26 MMOL/L (20-31); CHLORIDE LEVEL 108 MMOL/L (98-107); CREATININE FOR GFR 0.47 MG/DL (0.70-1.30); GLOMERULAR FILTRATION RATE > 60.0 (>49); GLUCOSE, FASTING 181 MG/DL (74-106); POTASSIUM SERUM 4.1 MMOL/L (3.5-5.1); SODIUM LEVEL 141 MMOL/L (136-145)
[2022-12-01 19:42] LABS: PROCALCITONIN 0.09 ng/ml
[2022-12-02 06:00] VITALS: BP 130/67; TEMP 97.9; O2SAT 97
[2022-12-03 06:01] VITALS: BP 132/68; TEMP 98.2; O2SAT 97
[2022-12-04 06:00] VITALS: BP 118/66; TEMP 97.9; O2SAT 96
[2022-12-05 06:00] VITALS: BP 123/64; TEMP 97.5; O2SAT 95
[2022-12-06 06:00] VITALS: BP 135/60; TEMP 98.2; O2SAT 95
[2022-12-07 06:01] VITALS: BP 123/55; TEMP 98.4; O2SAT 97
[2022-12-08 05:39] VITALS: BP 113/59; TEMP 97.7; O2SAT 97
[2022-12-09 06:15] VITALS: BP 120/71; TEMP 97.9; O2SAT 96
[2022-12-10 06:28] VITALS: BP 112/56; TEMP 97.7; O2SAT 96
[2022-12-11 05:11] VITALS: BP 130/66; TEMP 97.5; O2SAT 99
[2022-12-12 22:00] VITALS: BP 126/66; TEMP 97.7; O2SAT 93
[2022-12-13 06:00] VITALS: BP 101/62; TEMP 98.1; O2SAT 95
[2022-12-14 06:17] VITALS: BP 125/65; TEMP 98.1; O2SAT 96
[2022-12-15 05:45] VITALS: BP 127/63; TEMP 98.1; O2SAT 94
[2022-12-16 05:52] VITALS: BP 130/65; TEMP 98; O2SAT 96
[2022-12-17 06:40] VITALS: BP 127/61; TEMP 98.2; O2SAT 96
[2022-12-18 06:00] VITALS: BP 127/61; TEMP 98.1; O2SAT 96
[2022-12-19 06:00] VITALS: BP 123/67; TEMP 97.9; O2SAT 95
[2022-12-20 06:00] VITALS: BP 118/64; TEMP 98.1; O2SAT 95
[2022-12-21 06:07] VITALS: BP 132/64; TEMP 98.8; O2SAT 96
[2022-12-22 06:12] VITALS: BP 130/63; TEMP 98.1; O2SAT 95
[2022-12-23 06:40] VITALS: BP 137/68; TEMP 97; O2SAT 96
[2022-12-24 06:48] VITALS: BP 135/67; TEMP 98.2; O2SAT 98
[2022-12-25 06:00] VITALS: BP 126/63; TEMP 98.2; O2SAT 96
[2022-12-26 06:00] VITALS: BP 126/64; TEMP 97.3; O2SAT 95
[2022-12-27 06:00] VITALS: BP 126/65; TEMP 97.5; O2SAT 96
[2022-12-28 05:47] VITALS: BP 123/61; TEMP 97.9; O2SAT 84
[2022-12-29 05:55] VITALS: BP 167/81; TEMP 97.7; O2SAT 96
[2022-12-30 05:55] VITALS: BP 141/66; TEMP 98.1; O2SAT 95
[2022-12-31 05:55] VITALS: BP 164/79; TEMP 97.3; O2SAT 99
[2023-01-01 06:00] VITALS: BP 127/61; TEMP 98.1; O2SAT 96
[2023-01-02 06:00] VITALS: BP 127/61; TEMP 97.7; O2SAT 96
[2023-01-03 06:16] VITALS: BP 121/59; TEMP 98.1; O2SAT 97
[2023-01-04 06:20] VITALS: BP 117/81; TEMP 97.7; O2SAT 93
[2023-01-05 05:35] VITALS: BP 120/66; TEMP 98.1; O2SAT 95
[2023-01-06 06:44] VITALS: BP 127/68; TEMP 98.2; O2SAT 98
[2023-01-07 06:00] VITALS: BP 127/56; TEMP 98.1; O2SAT 94
[2023-01-07 07:45] VITALS: BP 127/68; TEMP 98.1; O2SAT 94
[2023-01-07 13:30] VITALS: BP 126/68; TEMP 97.9; O2SAT 96
[2023-01-08 06:00] VITALS: BP 129/65; TEMP 97.7; O2SAT 96
[2023-01-09 06:00] VITALS: BP 129/66; TEMP 97.5; O2SAT 97
[2023-01-10 06:00] VITALS: BP 126/65; TEMP 97.5; O2SAT 97
[2023-01-11 05:47] VITALS: BP 123/65; TEMP 97.7; O2SAT 98
[2023-01-12 06:18] VITALS: BP 123/62; TEMP 98.1; O2SAT 96
[2023-01-13 06:39] VITALS: BP 123/68; TEMP 97.9; O2SAT 95
[2023-01-14 06:32] VITALS: BP 123/54; TEMP 98.2; O2SAT 96
[2023-01-15 06:48] VITALS: BP 130/72; TEMP 97.2; O2SAT 96
[2023-01-16 06:00] VITALS: BP 120/70; TEMP 97.5; O2SAT 97
[2023-01-17 06:00] VITALS: BP 120/65; TEMP 97.7; O2SAT 94
[2023-01-18 05:18] VITALS: BP 120/64; TEMP 97.6; O2SAT 97
[2023-01-19 06:25] VITALS: BP 117/60; TEMP 97; O2SAT 96
[2023-01-20 06:04] VITALS: BP 136/67; TEMP 98.1; O2SAT 96
[2023-01-21 05:55] VITALS: BP 134/68; TEMP 98.2; O2SAT 97
[2023-01-22 06:09] VITALS: BP 120/58; TEMP 98.1; O2SAT 96
[2023-01-23 05:54] VITALS: BP 125/61; TEMP 98.1; O2SAT 96
[2023-01-24 06:24] VITALS: BP 127/65; TEMP 98.8; O2SAT 97
[2023-01-25 06:11] VITALS: BP 132/59; TEMP 98.1; O2SAT 95
[2023-01-26 05:55] VITALS: BP 134/67; TEMP 97.5; O2SAT 96
[2023-01-27 06:44] VITALS: BP 130/64; TEMP 98.1; O2SAT 96
[2023-01-27 10:10] VITALS: BP 128/64; TEMP 98; O2SAT 96
[2023-01-27 13:28] LABS: BASO # 0.1 10^3/uL (0.0-0.2); BASO % 1.3 % (0.0-1.0); EOS # 0.6 10^3/uL (0.0-0.5); EOS % 6.9 % (0.0-3.0); HEMATOCRIT 39.7 % (42.0-52.0); HEMOGLOBIN 12.1 g/dl (13.5-17.5); LYMPH # 1.9 10^3/uL (1.5-5.0); LYMPH % 24.3 % (24.0-44.0); MEAN CORPUSCULAR HEMOGLOBIN 25.3 pg (27.0-33.0); MEAN CORPUSCULAR HGB CONC 30.5 g/dl (32.0-36.5); MEAN CORPUSCULAR VOLUME 82.9 fl (80.0-96.0); MONO # 0.7 10^3/uL (0.0-0.8); MONO % 8.6 % (2.0-8.0); NEUTROPHILS # 4.7 10^3/uL (1.5-8.5); NEUTROPHILS % 58.4 % (36.0-66.0); PLATELET COUNT, AUTOMATED 282 10^3/uL (150-450); RED BLOOD COUNT 4.79 10^6/uL (4.30-6.10)
[2023-01-27 13:32] LABS: HEMOGLOBIN A1c 5.8 % (4.0-6.0)
[2023-01-27 13:44] LABS: INR 1.12; PROTHROMBIN TIME 14.1 SECONDS (12.5-14.5)
[2023-01-27 13:45] LABS: PARTIAL THROMBOPLASTIN TIME 33.2 SECONDS (24.8-34.2)
[2023-01-27 13:53] LABS: IRON (FE) 42 UG/DL (65-175)
[2023-01-27 13:54] LABS: ALBUMIN 2.7 G/DL (3.2-5.2); ALKALINE PHOSPHATASE 88 U/L (46-116); ALT/SGPT 25 U/L (7.0-40); AST/SGOT 16 U/L (<34); BILIRUBIN,TOTAL 0.5 MG/DL (0.3-1.2); BLOOD UREA NITROGEN 24 MG/DL (9-23); CALCIUM LEVEL 8.3 MG/DL (8.3-10.6); CARBON DIOXIDE LEVEL 28 MMOL/L (20-31); CHLORIDE LEVEL 108 MMOL/L (98-107); CREATININE FOR GFR 0.45 MG/DL (0.70-1.30); FERRITIN 34.6 NG/ML (10.5-307.3); GLOMERULAR FILTRATION RATE > 60.0 (>49); GLUCOSE, FASTING 116 MG/DL (74-106); PERCENT SATURATION 15.7 % (19.7-50.0); POTASSIUM SERUM 4.2 MMOL/L (3.5-5.1); SODIUM LEVEL 141 MMOL/L (136-145); TOTAL IRON BINDING CAPACITY 268 UG/DL (250-425); TOTAL PROTEIN 6.9 G/DL (5.7-8.2)
[2023-01-27 13:55] LABS: FOLATE 12.84 NG/ML (>5.4); VITAMIN B12 LEVEL 492 PG/ML (211-911)
[2023-01-27] MEDS: LEVEMIR (INSULIN DETEMIR) 1 UNITS/0.01ML SC SCH (21:08)
[2023-01-28 06:00] VITALS: BP 128/64; TEMP 97.7; O2SAT 97
[2023-01-28] MEDS: RIVAROXABAN 10MG TAB (XARELTO) PO SCH (08:49)
[2023-01-29 06:19] VITALS: BP 127/67; TEMP 98.4; O2SAT 96
[2023-01-30 05:59] VITALS: BP 129/66; TEMP 97.7; O2SAT 98
[2023-01-31 05:43] VITALS: BP 126/64; TEMP 98.1; O2SAT 96
[2023-02-01 06:20] VITALS: BP 125/63; TEMP 98.2; O2SAT 96
[2023-02-02 06:03] VITALS: BP 117/55; TEMP 98.4; O2SAT 96
[2023-02-03 06:11] VITALS: BP 140/83; TEMP 98.4; O2SAT 99
[2023-02-04 05:55] VITALS: BP 129/62; TEMP 98.4; O2SAT 96
[2023-02-05 06:10] VITALS: BP 147/75; TEMP 97.7; O2SAT 96
[2023-02-06 06:06] VITALS: BP 136/74; TEMP 98.2; O2SAT 98
[2023-02-07 06:20] VITALS: BP 133/71; TEMP 97.7; O2SAT 97
[2023-02-07] MEDS: metFORMIN (GLUCOPHAGE) 500MG TAB PO SCH (17:37)
[2023-02-08 05:42] VITALS: BP 136/67; TEMP 98.1; O2SAT 98
[2023-02-09 06:10] VITALS: BP 142/80; TEMP 98.2; O2SAT 96
[2023-02-09] MEDS: metFORMIN (GLUCOPHAGE) 500MG TAB PO SCH (18:46)
[2023-02-10 06:49] VITALS: BP 144/79; TEMP 98.4; O2SAT 97
[2023-02-11 06:10] VITALS: BP 114/72; TEMP 98.8; O2SAT 95
[2023-02-12 06:00] VITALS: BP 124/68; TEMP 98.1; O2SAT 97
[2023-02-13 05:43] VITALS: BP 133/69; TEMP 97.6; O2SAT 98
[2023-02-14 06:00] VITALS: BP 133/69; TEMP 98.2; O2SAT 97
[2023-02-14 06:45] LABS: BASO # 0.1 10^3/uL (0.0-0.2); BASO % 1.1 % (0.0-1.0); EOS # 0.4 10^3/uL (0.0-0.5); EOS % 5.5 % (0.0-3.0); HEMATOCRIT 41.3 % (42.0-52.0); LYMPH # 1.6 10^3/uL (1.5-5.0); LYMPH % 19.7 % (24.0-44.0); MEAN CORPUSCULAR HEMOGLOBIN 26.3 pg (27.0-33.0); MEAN CORPUSCULAR HGB CONC 31.5 g/dl (32.0-36.5); MEAN CORPUSCULAR VOLUME 83.4 fl (80.0-96.0); MONO # 0.6 10^3/uL (0.0-0.8); MONO % 7.2 % (2.0-8.0); NEUTROPHILS # 5.3 10^3/uL (1.5-8.5); PLATELET COUNT, AUTOMATED 269 10^3/uL (150-450); RED BLOOD COUNT 4.95 10^6/uL (4.30-6.10)
[2023-02-14 07:08] LABS: BLOOD UREA NITROGEN 26 MG/DL (9-23); CARBON DIOXIDE LEVEL 27 MMOL/L (20-31); CHLORIDE LEVEL 106 MMOL/L (98-107); CREATININE FOR GFR 0.38 MG/DL (0.70-1.30); GLOMERULAR FILTRATION RATE > 60.0 (>49); GLUCOSE, FASTING 130 MG/DL (74-106); POTASSIUM SERUM 4.6 MMOL/L (3.5-5.1); SODIUM LEVEL 142 MMOL/L (136-145)
[2023-02-14] MEDS: MIRALAX *UNIT DOSE* 17GM PACKET PO PRN (17:13)
[2023-02-14] MEDS: FLEET ENEMA PR PRN (18:10)
[2023-02-14] MEDS: SENNA 8.6 MG TAB (SENOKOT) PO SCH (21:28)
[2023-02-15 06:09] VITALS: BP 133/72; TEMP 97.5; O2SAT 96
[2023-02-15] MEDS: MIRALAX *UNIT DOSE* 17GM PACKET PO SCH (10:01)
[2023-02-16 06:03] VITALS: BP 126/71; TEMP 97.2; O2SAT 96
[2023-02-17 06:18] VITALS: BP 128/71; TEMP 97.2; O2SAT 96
[2023-02-18 04:48] VITALS: BP 126/70; TEMP 98.6; O2SAT 97
[2023-02-19 06:16] VITALS: BP 127/70; TEMP 97.7; O2SAT 96
[2023-02-20 05:41] VITALS: BP 125/64; TEMP 97.7; O2SAT 98
[2023-02-21 05:46] VITALS: BP 123/65; TEMP 97.5; O2SAT 96
[2023-02-22 05:31] VITALS: BP 124/65; TEMP 97.9; O2SAT 95
[2023-02-23 06:20] VITALS: BP 128/68; TEMP 98.2; O2SAT 96
[2023-02-24 06:03] VITALS: BP 125/66; TEMP 98.2; O2SAT 96
[2023-02-25 06:10] VITALS: BP 130/70; TEMP 98.2; O2SAT 97
[2023-02-26 06:00] VITALS: BP 129/70; TEMP 97.9; O2SAT 95
[2023-02-27 06:00] VITALS: BP 127/73; TEMP 98.1; O2SAT 97
[2023-02-28 06:00] VITALS: BP 125/70; TEMP 97.9; O2SAT 97
[2023-03-01 05:50] VITALS: BP 130/71; TEMP 98.1; O2SAT 95
[2023-03-01 08:30] VITALS: BP 118/64; TEMP 98.2; O2SAT 96
[2023-03-02 06:25] VITALS: BP 140/80; TEMP 98.1; O2SAT 97
[2023-03-03 06:10] VITALS: BP 135/78; TEMP 98.1; O2SAT 96
[2023-03-04 06:13] VITALS: BP 124/65; TEMP 98.2; O2SAT 96
[2023-03-05 06:00] VITALS: BP 130/68; TEMP 98.1; O2SAT 95
[2023-03-06 06:00] VITALS: BP 122/59; TEMP 97.7; O2SAT 97
[2023-03-07 05:52] VITALS: BP 147/57; TEMP 99; O2SAT 96
[2023-03-08 05:44] VITALS: BP 135/67; TEMP 97.7; O2SAT 97
[2023-03-08 09:00] VITALS: BP 131/65; TEMP 97.9; O2SAT 96
[2023-03-08 13:42] VITALS: BP 137/68; TEMP 98.1; O2SAT 99
[2023-03-09 06:12] VITALS: BP 130/67; TEMP 98.2; O2SAT 96
[2023-03-10 06:40] VITALS: BP 113/69; TEMP 98.1; O2SAT 95
[2023-03-11 06:26] VITALS: BP 115/66; TEMP 98.1; O2SAT 96
[2023-03-12 06:04] VITALS: BP 116/64; TEMP 97.7; O2SAT 96
[2023-03-13 05:24] VITALS: BP 115/64; TEMP 97.9; O2SAT 98
[2023-03-14 05:40] VITALS: BP 117/64; TEMP 98.2; O2SAT 97
[2023-03-15 05:24] VITALS: BP 119/71; TEMP 98.1; O2SAT 96
[2023-03-16 05:52] VITALS: BP 133/71; TEMP 98.8; O2SAT 96
[2023-03-17 06:18] VITALS: BP 133/73; TEMP 97.9; O2SAT 96
[2023-03-18 06:15] VITALS: BP 135/77; TEMP 98.1; O2SAT 96
[2023-03-19 06:29] VITALS: BP 108/68; TEMP 98.1; O2SAT 96
[2023-03-20 06:08] VITALS: BP 130/78; TEMP 97.9; O2SAT 92
[2023-03-21 05:45] VITALS: BP 134/74; TEMP 97.5; O2SAT 97
[2023-03-22 06:03] VITALS: BP 121/67; TEMP 97.9; O2SAT 96
[2023-03-23 05:45] VITALS: BP 103/66; TEMP 97.5; O2SAT 95
[2023-03-24 05:31] VITALS: BP 124/64; TEMP 97.9; O2SAT 95
[2023-03-25 05:16] VITALS: BP 125/87; TEMP 97.9; O2SAT 95
[2023-03-26 06:00] VITALS: BP 134/64; TEMP 96.1; O2SAT 97
[2023-03-27 05:04] VITALS: BP 138/68; TEMP 97.1; O2SAT 96
[2023-03-28 05:48] VITALS: BP 132/64; TEMP 98.1; O2SAT 97
[2023-03-29 05:50] VITALS: BP 13/65; TEMP 97.9; O2SAT 97
[2023-03-30 06:15] VITALS: BP 131/71; TEMP 98.2; O2SAT 94
[2023-03-31 06:20] VITALS: BP 141/74; TEMP 97.9; O2SAT 96
[2023-04-01 06:07] VITALS: BP 129/70; TEMP 98.4; O2SAT 96
[2023-04-02 05:37] VITALS: BP 130/70; TEMP 97; O2SAT 98
[2023-04-03 05:40] VITALS: BP 133/72; TEMP 97; O2SAT 96
[2023-04-04 06:02] VITALS: BP 107/71; TEMP 97.9; O2SAT 97
[2023-04-05 05:37] VITALS: BP 127/65; TEMP 97.7; O2SAT 98
[2023-04-06 06:10] VITALS: BP 127/65; TEMP 96.9; O2SAT 96
[2023-04-07 06:16] VITALS: BP 117/65; TEMP 98.1; O2SAT 96
[2023-04-08 06:24] VITALS: BP 123/68; TEMP 98.2; O2SAT 96
[2023-04-09 06:03] VITALS: BP 125/68; TEMP 97.7; O2SAT 97
[2023-04-10 06:00] VITALS: BP 128/69; TEMP 97.6; O2SAT 96
[2023-04-11 05:40] VITALS: BP 139/69; TEMP 97.7; O2SAT 97
[2023-04-12 05:52] VITALS: BP 130/70; TEMP 97.9; O2SAT 97
[2023-04-13 06:00] VITALS: BP 133/95; TEMP 97; O2SAT 98
[2023-04-14 06:00] VITALS: BP 146/87; TEMP 98.2; O2SAT 96
[2023-04-15 05:49] VITALS: BP 118/65; TEMP 97.7; O2SAT 97
[2023-04-16 05:38] VITALS: BP 121/70; TEMP 97.6; O2SAT 98
[2023-04-17 05:44] VITALS: BP 138/67; TEMP 97.9; O2SAT 99
[2023-04-17 19:28] LABS: HEMATOCRIT 37.7 % (42.0-52.0); HEMOGLOBIN 11.5 g/dl (13.5-17.5)
[2023-04-18 06:06] VITALS: BP 123/60; TEMP 97; O2SAT 98
[2023-04-19 05:48] VITALS: BP 128/63; TEMP 97.9; O2SAT 96
[2023-04-20 05:30] VITALS: BP 139/73; TEMP 97.7; O2SAT 98
[2023-04-21 05:38] VITALS: BP 125/69; TEMP 97.9; O2SAT 98
[2023-04-22 05:37] VITALS: BP 126/69; TEMP 97.9; O2SAT 97
[2023-04-23 06:00] VITALS: BP 128/68; TEMP 97.2; O2SAT 98
[2023-04-24 06:00] VITALS: BP 129/67; TEMP 97.5; O2SAT 95
[2023-04-25 06:07] VITALS: BP 133/67; TEMP 98.2; O2SAT 96
[2023-04-26 05:57] VITALS: BP 133/65; TEMP 97.9; O2SAT 97
[2023-04-26 07:45] VITALS: BP 118/75; TEMP 97; O2SAT 96
[2023-04-26 14:00] VITALS: BP 121/70; TEMP 97; O2SAT 96
[2023-04-27 06:00] VITALS: BP 122/73; TEMP 97.3; O2SAT 97
[2023-04-28 06:16] VITALS: BP 100/63; TEMP 98.1; O2SAT 96
[2023-04-29 06:08] VITALS: BP 118/71; TEMP 97.9; O2SAT 96
[2023-04-29 14:09] VITALS: BP 128/72; TEMP 98.1; O2SAT 96
[2023-04-30 06:00] VITALS: BP 133/73; TEMP 97.4; O2SAT 97
[2023-05-01] VITALS (9 sets, daily range): BP systolic 126; BP diastolic 65; TEMP 96.4–101.3; O2SAT 96
[2023-05-01 09:14] LABS: BASO # 0.1 10^3/uL (0.0-0.2); BASO % 0.7 % (0.0-1.0); EOS # 0.2 10^3/uL (0.0-0.5); EOS % 2.2 % (0.0-3.0); HEMATOCRIT 44.7 % (42.0-52.0); HEMOGLOBIN 13.2 g/dl (13.5-17.5); LYMPH # 1.7 10^3/uL (1.5-5.0); LYMPH % 15.3 % (24.0-44.0); MEAN CORPUSCULAR HEMOGLOBIN 24.9 pg (27.0-33.0); MEAN CORPUSCULAR HGB CONC 29.5 g/dl (32.0-36.5); MEAN CORPUSCULAR VOLUME 84.3 fl (80.0-96.0); MONO # 0.9 10^3/uL (0.0-0.8); MONO % 8.1 % (2.0-8.0); NEUTROPHILS # 7.9 10^3/uL (1.5-8.5); NEUTROPHILS % 73.4 % (36.0-66.0); PLATELET COUNT, AUTOMATED 331 10^3/uL (150-450); WHITE BLOOD COUNT 10.8 10^3/uL (4.0-10.0)
[2023-05-01 09:39] LABS: C REACTIVE PROTEIN QUANTITATIV 10.6 MG/DL (<1.0)
[2023-05-01 09:47] LABS: PROCALCITONIN 0.16 ng/ml
[2023-05-01] MEDS: CEFEPIME HCL 2 GM in D5W MINI-BAG PLUS 50 ML IV SCH (16:36)
[2023-05-02 02:06] VITALS: TEMP 99.1
[2023-05-02 05:52] VITALS: BP 122/65; TEMP 97.7; O2SAT 96
[2023-05-02 06:46] LABS: BASO # 0.1 10^3/uL (0.0-0.2); BASO % 0.9 % (0.0-1.0); EOS # 0.4 10^3/uL (0.0-0.5); EOS % 3.9 % (0.0-3.0); HEMATOCRIT 36.6 % (42.0-52.0); LYMPH # 2.2 10^3/uL (1.5-5.0); MEAN CORPUSCULAR HEMOGLOBIN 25.1 pg (27.0-33.0); MEAN CORPUSCULAR HGB CONC 30.6 g/dl (32.0-36.5); MEAN CORPUSCULAR VOLUME 81.9 fl (80.0-96.0); MONO # 1.1 10^3/uL (0.0-0.8); MONO % 10.7 % (2.0-8.0); NEUTROPHILS # 6.2 10^3/uL (1.5-8.5); PLATELET COUNT, AUTOMATED 336 10^3/uL (150-450); RED BLOOD COUNT 4.47 10^6/uL (4.30-6.10); WHITE BLOOD COUNT 9.9 10^3/uL (4.0-10.0)
[2023-05-02 06:50] LABS: HEMOGLOBIN 11.2 g/dl (13.5-17.5)
[2023-05-02 07:06] LABS: BLOOD UREA NITROGEN 14 MG/DL (9-23); CALCIUM LEVEL 8.1 MG/DL (8.3-10.6); CARBON DIOXIDE LEVEL 26 MMOL/L (20-31); CHLORIDE LEVEL 106 MMOL/L (98-107); CREATININE FOR GFR 0.41 MG/DL (0.70-1.30); GLOMERULAR FILTRATION RATE > 60.0 (>49); GLUCOSE, FASTING 147 MG/DL (74-106); MAGNESIUM LEVEL 1.9 MG/DL (1.8-2.4); POTASSIUM SERUM 4.1 MMOL/L (3.5-5.1); SODIUM LEVEL 139 MMOL/L (136-145)
[2023-05-03 06:00] VITALS: BP 121/64; TEMP 97.3; O2SAT 96
[2023-05-03 06:34] LABS: BASO # 0.1 10^3/uL (0.0-0.2); EOS # 0.5 10^3/uL (0.0-0.5); EOS % 5.8 % (0.0-3.0); HEMATOCRIT 34.9 % (42.0-52.0); HEMOGLOBIN 10.6 g/dl (13.5-17.5); LYMPH # 1.8 10^3/uL (1.5-5.0); MEAN CORPUSCULAR HEMOGLOBIN 25.3 pg (27.0-33.0); MEAN CORPUSCULAR HGB CONC 30.4 g/dl (32.0-36.5); MEAN CORPUSCULAR VOLUME 83.3 fl (80.0-96.0); MONO # 0.8 10^3/uL (0.0-0.8); MONO % 9.7 % (2.0-8.0); NEUTROPHILS % 61.1 % (36.0-66.0); PLATELET COUNT, AUTOMATED 317 10^3/uL (150-450); RED BLOOD COUNT 4.19 10^6/uL (4.30-6.10); WHITE BLOOD COUNT 8.2 10^3/uL (4.0-10.0)
[2023-05-03 07:00] LABS: BLOOD UREA NITROGEN 15 MG/DL (9-23); CALCIUM LEVEL 8.5 MG/DL (8.3-10.6); CARBON DIOXIDE LEVEL 26 MMOL/L (20-31); CHLORIDE LEVEL 104 MMOL/L (98-107); CREATININE FOR GFR 0.39 MG/DL (0.70-1.30); GLOMERULAR FILTRATION RATE > 60.0 (>49); GLUCOSE, FASTING 117 MG/DL (74-106); MAGNESIUM LEVEL 1.8 MG/DL (1.8-2.4); POTASSIUM SERUM 3.8 MMOL/L (3.5-5.1); SODIUM LEVEL 138 MMOL/L (136-145)
[2023-05-04 05:22] VITALS: BP 126/62; TEMP 97.2; O2SAT 97
[2023-05-04 06:17] LABS: BASO # 0.1 10^3/uL (0.0-0.2); BASO % 0.8 % (0.0-1.0); EOS # 0.4 10^3/uL (0.0-0.5); EOS % 4.3 % (0.0-3.0); HEMATOCRIT 33.6 % (42.0-52.0); HEMOGLOBIN 10.3 g/dl (13.5-17.5); LYMPH # 1.6 10^3/uL (1.5-5.0); MEAN CORPUSCULAR HEMOGLOBIN 25.2 pg (27.0-33.0); MEAN CORPUSCULAR HGB CONC 30.7 g/dl (32.0-36.5); MEAN CORPUSCULAR VOLUME 82.4 fl (80.0-96.0); MONO # 0.7 10^3/uL (0.0-0.8); MONO % 7.3 % (2.0-8.0); NEUTROPHILS # 6.2 10^3/uL (1.5-8.5); NEUTROPHILS % 69.2 % (36.0-66.0); PLATELET COUNT, AUTOMATED 326 10^3/uL (150-450); RED BLOOD COUNT 4.08 10^6/uL (4.30-6.10); WHITE BLOOD COUNT 8.9 10^3/uL (4.0-10.0)
[2023-05-04 06:36] LABS: BLOOD UREA NITROGEN 19 MG/DL (9-23); CALCIUM LEVEL 8.5 MG/DL (8.3-10.6); CARBON DIOXIDE LEVEL 25 MMOL/L (20-31); CHLORIDE LEVEL 104 MMOL/L (98-107); CREATININE FOR GFR 0.32 MG/DL (0.70-1.30); GLOMERULAR FILTRATION RATE > 60.0 (>49); GLUCOSE, FASTING 127 MG/DL (74-106); MAGNESIUM LEVEL 1.8 MG/DL (1.8-2.4); SODIUM LEVEL 137 MMOL/L (136-145)
[2023-05-04] MEDS: DOXYCYCLINE HYCLATE 100MG TABLET PO SCH (09:00)
[2023-05-04] MEDS: CEFDINIR 300 MG CAP (OMNICEF) PO SCH (22:40)
[2023-05-05 06:19] VITALS: BP 131/73; TEMP 97.9; O2SAT 96
[2023-05-05 06:38] LABS: BASO # 0.1 10^3/uL (0.0-0.2); BASO % 0.7 % (0.0-1.0); EOS # 0.4 10^3/uL (0.0-0.5); EOS % 5.1 % (0.0-3.0); HEMATOCRIT 34.1 % (42.0-52.0); HEMOGLOBIN 10.5 g/dl (13.5-17.5); LYMPH # 1.6 10^3/uL (1.5-5.0); LYMPH % 21.2 % (24.0-44.0); MEAN CORPUSCULAR HEMOGLOBIN 25.1 pg (27.0-33.0); MEAN CORPUSCULAR HGB CONC 30.8 g/dl (32.0-36.5); MEAN CORPUSCULAR VOLUME 81.6 fl (80.0-96.0); MONO # 0.7 10^3/uL (0.0-0.8); MONO % 9.1 % (2.0-8.0); NEUTROPHILS # 4.7 10^3/uL (1.5-8.5); NEUTROPHILS % 63.4 % (36.0-66.0); PLATELET COUNT, AUTOMATED 337 10^3/uL (150-450); RED BLOOD COUNT 4.18 10^6/uL (4.30-6.10); WHITE BLOOD COUNT 7.5 10^3/uL (4.0-10.0)
[2023-05-05 06:58] LABS: BLOOD UREA NITROGEN 18 MG/DL (9-23); CALCIUM LEVEL 8.1 MG/DL (8.3-10.6); CARBON DIOXIDE LEVEL 28 MMOL/L (20-31); CHLORIDE LEVEL 106 MMOL/L (98-107); CREATININE FOR GFR 0.37 MG/DL (0.70-1.30); GLOMERULAR FILTRATION RATE > 60.0 (>49); GLUCOSE, FASTING 112 MG/DL (74-106); MAGNESIUM LEVEL 1.8 MG/DL (1.8-2.4); POTASSIUM SERUM 4.2 MMOL/L (3.5-5.1); SODIUM LEVEL 140 MMOL/L (136-145)
[2023-05-06 06:07] LABS: BASO # 0.1 10^3/uL (0.0-0.2); BASO % 1.3 % (0.0-1.0); EOS # 0.5 10^3/uL (0.0-0.5); EOS % 6.2 % (0.0-3.0); HEMATOCRIT 34.1 % (42.0-52.0); HEMOGLOBIN 10.5 g/dl (13.5-17.5); LYMPH # 1.7 10^3/uL (1.5-5.0); MEAN CORPUSCULAR HEMOGLOBIN 24.9 pg (27.0-33.0); MEAN CORPUSCULAR HGB CONC 30.8 g/dl (32.0-36.5); MEAN CORPUSCULAR VOLUME 80.8 fl (80.0-96.0); MONO # 0.6 10^3/uL (0.0-0.8); MONO % 7.8 % (2.0-8.0); NEUTROPHILS # 4.9 10^3/uL (1.5-8.5); NEUTROPHILS % 62.2 % (36.0-66.0); PLATELET COUNT, AUTOMATED 352 10^3/uL (150-450); RED BLOOD COUNT 4.22 10^6/uL (4.30-6.10); WHITE BLOOD COUNT 7.9 10^3/uL (4.0-10.0)
[2023-05-06 06:22] VITALS: BP 119/61; TEMP 98.1; O2SAT 96
[2023-05-06 06:38] LABS: BLOOD UREA NITROGEN 18 MG/DL (9-23); CALCIUM LEVEL 8.7 MG/DL (8.3-10.6); CARBON DIOXIDE LEVEL 28 MMOL/L (20-31); CHLORIDE LEVEL 106 MMOL/L (98-107); CREATININE FOR GFR 0.34 MG/DL (0.70-1.30); GLOMERULAR FILTRATION RATE > 60.0 (>49); GLUCOSE, FASTING 117 MG/DL (74-106); MAGNESIUM LEVEL 1.8 MG/DL (1.8-2.4); POTASSIUM SERUM 4.3 MMOL/L (3.5-5.1); SODIUM LEVEL 140 MMOL/L (136-145)
[2023-05-07 06:15] VITALS: BP 119/64; TEMP 97.9; O2SAT 96
[2023-05-08 06:00] VITALS: BP 131/65; TEMP 97.3; O2SAT 93
[2023-05-09 06:00] VITALS: BP 128/66; TEMP 97.7; O2SAT 97
[2023-05-10 05:17] VITALS: BP 126/64; TEMP 97.5; O2SAT 94
[2023-05-11 06:00] VITALS: BP 143/73; TEMP 97.3; O2SAT 97
[2023-05-12 06:00] VITALS: BP 115/68; TEMP 97.7; O2SAT 95
[2023-05-13 05:53] VITALS: BP 130/78; TEMP 97.3; O2SAT 95
[2023-05-14 06:00] VITALS: BP 131/84; TEMP 97; O2SAT 96
[2023-05-15 06:00] VITALS: BP 118/70; TEMP 97.9; O2SAT 95
[2023-05-15 20:08] LABS: BASO # 0.1 10^3/uL (0.0-0.2); BASO % 0.8 % (0.0-1.0); EOS # 0.4 10^3/uL (0.0-0.5); EOS % 3.2 % (0.0-3.0); HEMATOCRIT 35.2 % (42.0-52.0); HEMOGLOBIN 10.7 g/dl (13.5-17.5); LYMPH # 1.5 10^3/uL (1.5-5.0); LYMPH % 13.5 % (24.0-44.0); MEAN CORPUSCULAR HEMOGLOBIN 24.5 pg (27.0-33.0); MEAN CORPUSCULAR HGB CONC 30.4 g/dl (32.0-36.5); MEAN CORPUSCULAR VOLUME 80.7 fl (80.0-96.0); MONO # 0.9 10^3/uL (0.0-0.8); MONO % 8.1 % (2.0-8.0); NEUTROPHILS % 73.8 % (36.0-66.0); PLATELET COUNT, AUTOMATED 465 10^3/uL (150-450); RED BLOOD COUNT 4.36 10^6/uL (4.30-6.10); WHITE BLOOD COUNT 10.8 10^3/uL (4.0-10.0)
[2023-05-15 20:21] LABS: ERYTHROCYTE SEDIMENTATION RATE 101 mm/hr (0-20)
[2023-05-15 20:57] LABS: ALBUMIN 2.3 G/DL (3.2-5.2); ALKALINE PHOSPHATASE 75 U/L (46-116); ALT/SGPT 10 U/L (7.0-40); AST/SGOT 8 U/L (<34); BILIRUBIN,TOTAL 0.3 MG/DL (0.3-1.2); BLOOD UREA NITROGEN 19 MG/DL (9-23); CALCIUM LEVEL 8.3 MG/DL (8.3-10.6); CARBON DIOXIDE LEVEL 25 MMOL/L (20-31); CHLORIDE LEVEL 106 MMOL/L (98-107); GLOMERULAR FILTRATION RATE > 60.0 (>49); GLUCOSE, FASTING 182 MG/DL (74-106); MAGNESIUM LEVEL 1.8 MG/DL (1.8-2.4); SODIUM LEVEL 138 MMOL/L (136-145); TOTAL PROTEIN 6.6 G/DL (5.7-8.2)
[2023-05-15] MEDS: DOXYCYCLINE HYCLATE 100MG TABLET PO SCH (21:20)
[2023-05-16 05:34] VITALS: BP 117/69; TEMP 97.7; O2SAT 96
[2023-05-16] MEDS: LACTOBACILLUS ACIDOPHILUS CAP (BACID) PO SCH (08:39)
[2023-05-17 05:25] VITALS: BP 120/69; TEMP 97.9; O2SAT 94
[2023-05-18 06:16] VITALS: BP 116/59; TEMP 98.4; O2SAT 95
[2023-05-19 06:00] VITALS: BP 116/63; TEMP 98.2; O2SAT 97
[2023-05-19 07:50] VITALS: BP 117/63; TEMP 97.9; O2SAT 95
[2023-05-20 05:20] VITALS: BP 117/64; TEMP 97.7; O2SAT 92
[2023-05-21 05:15] VITALS: BP 121/66; TEMP 97.5; O2SAT 97
[2023-05-22 05:57] VITALS: BP 128/66; TEMP 97.7; O2SAT 98
[2023-05-22 15:32] VITALS: BP 125/80; TEMP 97.3; O2SAT 96
[2023-05-22 15:35] VITALS: TEMP 99.4
[2023-05-22 16:30] VITALS: TEMP 96.7
[2023-05-23 05:23] VITALS: BP 125/65; TEMP 97.5; O2SAT 97
[2023-05-24 05:14] VITALS: BP 122/66; TEMP 97.5; O2SAT 95
[2023-05-25 06:00] VITALS: BP 111/59; TEMP 97.7; O2SAT 96
[2023-05-26 06:04] VITALS: BP 119/51; TEMP 98.5; O2SAT 94
[2023-05-27 05:32] VITALS: BP 118/66; TEMP 98.2; O2SAT 99
[2023-05-28 05:56] VITALS: BP 125/69; TEMP 96.7; O2SAT 96
[2023-05-28 19:39] VITALS: BP 126/69; O2SAT 95
[2023-05-29 05:39] VITALS: BP 136/64; TEMP 96.7; O2SAT 96
[2023-05-29] MEDS: MIRALAX *UNIT DOSE* 17GM PACKET PO PRN (20:29)
[2023-05-30 06:01] VITALS: BP 127/64; TEMP 97.7; O2SAT 98
[2023-05-31 05:19] VITALS: BP 142/73; TEMP 98.1; O2SAT 99
[2023-06-01 05:28] VITALS: BP 131/65; TEMP 97.5; O2SAT 98
[2023-06-02 06:11] VITALS: TEMP 97.2; O2SAT 92
[2023-06-03 05:23] VITALS: BP 113/65; TEMP 97.7; O2SAT 97
[2023-06-03 16:05] VITALS: BP 113/65; TEMP 99; O2SAT 97
[2023-06-03 16:56] LABS: VENOUS BASE EXCESS 0.2 (-2.0-2.0); VENOUS HCO3 24.8 MMOL/L (23.0-27.0); VENOUS O2 SATURATION 96.1 % (60.0-80.0); VENOUS PARTIAL PRESSURE CO2 39.9 mmHg (38.0-50.0); VENOUS PARTIAL PRESSURE O2 82.7 mmHg (30.0-50.0); VENOUS PH 7.411 UNITS (7.330-7.430); VENOUS STANDARD HCO3 24.7 MMOL/L
[2023-06-03 17:06] LABS: BASO # 0.1 10^3/uL (0.0-0.2); BASO % 0.8 % (0.0-1.0); EOS # 0.3 10^3/uL (0.0-0.5); EOS % 2.6 % (0.0-3.0); HEMATOCRIT 35.6 % (42.0-52.0); HEMOGLOBIN 10.6 g/dl (13.5-17.5); LYMPH # 1.9 10^3/uL (1.5-5.0); LYMPH % 17.3 % (24.0-44.0); MEAN CORPUSCULAR HEMOGLOBIN 23.7 pg (27.0-33.0); MEAN CORPUSCULAR HGB CONC 29.8 g/dl (32.0-36.5); MEAN CORPUSCULAR VOLUME 79.6 fl (80.0-96.0); MONO # 1.1 10^3/uL (0.0-0.8); MONO % 9.9 % (2.0-8.0); NEUTROPHILS # 7.5 10^3/uL (1.5-8.5); NEUTROPHILS % 68.6 % (36.0-66.0); PLATELET COUNT, AUTOMATED 440 10^3/uL (150-450); RED BLOOD COUNT 4.47 10^6/uL (4.30-6.10)
[2023-06-03 17:27] LABS: ALBUMIN 2.3 G/DL (3.2-5.2); ALKALINE PHOSPHATASE 73 U/L (46-116); ALT/SGPT 10 U/L (7.0-40); AST/SGOT 11 U/L (<34); BILIRUBIN,TOTAL 0.3 MG/DL (0.3-1.2); BLOOD UREA NITROGEN 17 MG/DL (9-23); CARBON DIOXIDE LEVEL 26 MMOL/L (20-31); CHLORIDE LEVEL 104 MMOL/L (98-107); CREATININE FOR GFR 0.35 MG/DL (0.70-1.30); GLOMERULAR FILTRATION RATE > 60.0 (>49); GLUCOSE, FASTING 134 MG/DL (74-106); POTASSIUM SERUM 4.2 MMOL/L (3.5-5.1); SODIUM LEVEL 136 MMOL/L (136-145); TOTAL PROTEIN 6.6 G/DL (5.7-8.2)
[2023-06-03 18:04] LABS: ERYTHROCYTE SEDIMENTATION RATE 95 mm/hr (0-20)
[2023-06-03 18:17] LABS: PROCALCITONIN 0.14 ng/ml
[2023-06-03] MEDS: LR 1,000 ML IV SCH (18:17)
[2023-06-03] MEDS: LR 1,000 ML IV ONE (18:17)
[2023-06-03] MEDS: LevoFLOXacin 750 MG TABLET PO SCH (18:22)
[2023-06-03] MEDS: DOXYCYCLINE HYCLATE 100MG TABLET PO SCH (19:58)
[2023-06-03 22:00] VITALS: BP 117/65; TEMP 98; O2SAT 98
[2023-06-03] MEDS: LR 500 ML IV SCH (23:43)
[2023-06-04 05:17] VITALS: BP 125/70; TEMP 96.9; O2SAT 98
[2023-06-04 06:58] LABS: BASO # 0.1 10^3/uL (0.0-0.2); BASO % 0.8 % (0.0-1.0); EOS # 0.3 10^3/uL (0.0-0.5); EOS % 3.7 % (0.0-3.0); HEMATOCRIT 34.3 % (42.0-52.0); HEMOGLOBIN 10.2 g/dl (13.5-17.5); LYMPH # 1.4 10^3/uL (1.5-5.0); LYMPH % 18.9 % (24.0-44.0); MEAN CORPUSCULAR HEMOGLOBIN 23.7 pg (27.0-33.0); MEAN CORPUSCULAR HGB CONC 29.7 g/dl (32.0-36.5); MEAN CORPUSCULAR VOLUME 79.6 fl (80.0-96.0); MONO # 0.7 10^3/uL (0.0-0.8); MONO % 8.6 % (2.0-8.0); NEUTROPHILS # 5.1 10^3/uL (1.5-8.5); NEUTROPHILS % 67.2 % (36.0-66.0); PLATELET COUNT, AUTOMATED 362 10^3/uL (150-450); RED BLOOD COUNT 4.31 10^6/uL (4.30-6.10); WHITE BLOOD COUNT 7.6 10^3/uL (4.0-10.0)
[2023-06-04 07:20] LABS: BLOOD UREA NITROGEN 12 MG/DL (9-23); CALCIUM LEVEL 7.7 MG/DL (8.3-10.6); CARBON DIOXIDE LEVEL 25 MMOL/L (20-31); CHLORIDE LEVEL 107 MMOL/L (98-107); CREATININE FOR GFR 0.31 MG/DL (0.70-1.30); GLOMERULAR FILTRATION RATE > 60.0 (>49); GLUCOSE, FASTING 118 MG/DL (74-106); POTASSIUM SERUM 4.5 MMOL/L (3.5-5.1); SODIUM LEVEL 139 MMOL/L (136-145)
[2023-06-04] MEDS: LR 1,000 ML IV SCH (12:52)
[2023-06-04] MEDS: LR 500 ML IV ONE (20:11)
[2023-06-04 20:12] VITALS: BP 138/64; TEMP 97.9; O2SAT 97
[2023-06-05 06:05] VITALS: BP 115/66; TEMP 98.3; O2SAT 98
[2023-06-06 06:23] VITALS: BP 133/71; TEMP 97.7; O2SAT 98
[2023-06-06] MEDS: DAKIN'S 0.25% HALF-STRENGTH SOLN 480 ML TOP SCH (10:40)
[2023-06-06] MEDS: AMOXICILLIN 875 MG TAB PO SCH (20:13)
[2023-06-07 06:21] VITALS: BP 123/66; TEMP 98.2; O2SAT 97
[2023-06-09 06:00] VITALS: BP 131/71; TEMP 98.8
[2023-06-10 05:26] VITALS: BP 132/65; TEMP 97.9; O2SAT 96
[2023-06-11 05:45] VITALS: BP 134/68; TEMP 97.5; O2SAT 97
[2023-06-12 05:42] VITALS: BP 122/78; TEMP 97.7; O2SAT 98
[2023-06-13 06:03] VITALS: BP 120/72; TEMP 98.2; O2SAT 95
[2023-06-13 20:00] VITALS: BP 123/70; TEMP 99; O2SAT 94
[2023-06-14 06:00] VITALS: BP 119/70; TEMP 97.9; O2SAT 97
[2023-06-14 21:00] VITALS: BP 130/68; TEMP 99.9; O2SAT 98
[2023-06-15 05:54] VITALS: BP 118/66; TEMP 97.7; O2SAT 96
[2023-06-16 06:20] VITALS: BP 125/76; TEMP 99; O2SAT 96
[2023-06-17 06:32] VITALS: BP 113/65; TEMP 98.8; O2SAT 96
[2023-06-18 06:00] VITALS: BP 100/52; TEMP 97.5; O2SAT 96
[2023-06-19 06:07] VITALS: BP 129/62; TEMP 98.8; O2SAT 96
[2023-06-19 18:54] LABS: BASO # 0.1 10^3/uL (0.0-0.2); BASO % 0.5 % (0.0-1.0); EOS # 0.4 10^3/uL (0.0-0.5); EOS % 2.9 % (0.0-3.0); HEMATOCRIT 30.2 % (42.0-52.0); HEMOGLOBIN 9.2 g/dl (13.5-17.5); LYMPH # 1.8 10^3/uL (1.5-5.0); LYMPH % 13.5 % (24.0-44.0); MEAN CORPUSCULAR HEMOGLOBIN 23.1 pg (27.0-33.0); MEAN CORPUSCULAR HGB CONC 30.5 g/dl (32.0-36.5); MEAN CORPUSCULAR VOLUME 75.7 fl (80.0-96.0); MONO # 0.9 10^3/uL (0.0-0.8); MONO % 6.6 % (2.0-8.0); NEUTROPHILS # 10.1 10^3/uL (1.5-8.5); PLATELET COUNT, AUTOMATED 550 10^3/uL (150-450); RED BLOOD COUNT 3.99 10^6/uL (4.30-6.10); WHITE BLOOD COUNT 13.3 10^3/uL (4.0-10.0)
[2023-06-19 19:22] LABS: ALBUMIN 2.1 G/DL (3.2-5.2); ALKALINE PHOSPHATASE 84 U/L (46-116); ALT/SGPT 17 U/L (7.0-40); AST/SGOT 14 U/L (<34); BILIRUBIN,TOTAL 0.3 MG/DL (0.3-1.2); BLOOD UREA NITROGEN 13 MG/DL (9-23); CALCIUM LEVEL 8.2 MG/DL (8.3-10.6); CARBON DIOXIDE LEVEL 28 MMOL/L (20-31); CHLORIDE LEVEL 104 MMOL/L (98-107); CREATININE FOR GFR 0.51 MG/DL (0.70-1.30); GLOMERULAR FILTRATION RATE > 60.0 (>49); GLUCOSE, FASTING 197 MG/DL (74-106); POTASSIUM SERUM 4.3 MMOL/L (3.5-5.1); SODIUM LEVEL 136 MMOL/L (136-145); TOTAL PROTEIN 6.6 G/DL (5.7-8.2)
[2023-06-20 05:29] VITALS: BP 127/64; TEMP 97.3; O2SAT 94
[2023-06-20] MEDS: CEFEPIME HCL 2 GM in D5W MINI-BAG PLUS 50 ML IV SCH (14:57)
[2023-06-21 06:29] VITALS: BP 97/58; TEMP 97.9; O2SAT 93
[2023-06-21 07:45] LABS: BASO # 0.1 10^3/uL (0.0-0.2); BASO % 0.8 % (0.0-1.0); EOS # 0.3 10^3/uL (0.0-0.5); EOS % 3.6 % (0.0-3.0); HEMOGLOBIN 8.9 g/dl (13.5-17.5); LYMPH # 1.4 10^3/uL (1.5-5.0); LYMPH % 16.4 % (24.0-44.0); MEAN CORPUSCULAR HEMOGLOBIN 22.4 pg (27.0-33.0); MEAN CORPUSCULAR HGB CONC 29.7 g/dl (32.0-36.5); MEAN CORPUSCULAR VOLUME 75.4 fl (80.0-96.0); MONO # 0.7 10^3/uL (0.0-0.8); MONO % 8.4 % (2.0-8.0); NEUTROPHILS # 5.8 10^3/uL (1.5-8.5); NEUTROPHILS % 70.1 % (36.0-66.0); PLATELET COUNT, AUTOMATED 470 10^3/uL (150-450); RED BLOOD COUNT 3.98 10^6/uL (4.30-6.10); WHITE BLOOD COUNT 8.3 10^3/uL (4.0-10.0)
[2023-06-21 08:09] LABS: BLOOD UREA NITROGEN 15 MG/DL (9-23); CALCIUM LEVEL 7.8 MG/DL (8.3-10.6); CARBON DIOXIDE LEVEL 29 MMOL/L (20-31); CHLORIDE LEVEL 102 MMOL/L (98-107); CREATININE FOR GFR 0.31 MG/DL (0.70-1.30); GLOMERULAR FILTRATION RATE > 60.0 (>49); GLUCOSE, FASTING 147 MG/DL (74-106); SODIUM LEVEL 136 MMOL/L (136-145)
[2023-06-21] MEDS: SANTYL OINT 30GM TOP PRN (14:59)
[2023-06-21 23:00] VITALS: BP 149/74; TEMP 98.8; O2SAT 93
[2023-06-22 06:10] VITALS: BP 119/67; TEMP 98.4; O2SAT 96
[2023-06-22 07:06] LABS: BASO # 0.1 10^3/uL (0.0-0.2); BASO % 0.6 % (0.0-1.0); EOS # 0.3 10^3/uL (0.0-0.5); EOS % 3.9 % (0.0-3.0); HEMATOCRIT 28.1 % (42.0-52.0); HEMOGLOBIN 8.5 g/dl (13.5-17.5); LYMPH # 1.2 10^3/uL (1.5-5.0); LYMPH % 14.7 % (24.0-44.0); MEAN CORPUSCULAR HEMOGLOBIN 22.7 pg (27.0-33.0); MEAN CORPUSCULAR HGB CONC 30.2 g/dl (32.0-36.5); MEAN CORPUSCULAR VOLUME 75.1 fl (80.0-96.0); MONO # 0.7 10^3/uL (0.0-0.8); MONO % 8.8 % (2.0-8.0); NEUTROPHILS # 5.7 10^3/uL (1.5-8.5); NEUTROPHILS % 71.5 % (36.0-66.0); PLATELET COUNT, AUTOMATED 458 10^3/uL (150-450); RED BLOOD COUNT 3.74 10^6/uL (4.30-6.10)
[2023-06-22 07:30] LABS: BLOOD UREA NITROGEN 15 MG/DL (9-23); CALCIUM LEVEL 7.9 MG/DL (8.3-10.6); CARBON DIOXIDE LEVEL 28 MMOL/L (20-31); CHLORIDE LEVEL 105 MMOL/L (98-107); CREATININE FOR GFR 0.31 MG/DL (0.70-1.30); GLOMERULAR FILTRATION RATE > 60.0 (>49); GLUCOSE, FASTING 154 MG/DL (74-106); SODIUM LEVEL 138 MMOL/L (136-145)
[2023-06-22 09:01] LABS: PROCALCITONIN 0.17 ng/ml
[2023-06-22 13:30] VITALS: BP 122/65; TEMP 97.9; O2SAT 96
[2023-06-22 22:30] VITALS: BP 123/64; TEMP 99; O2SAT 97
[2023-06-23 05:52] VITALS: BP 122/65; TEMP 97.9; O2SAT 96
[2023-06-23 14:23] VITALS: BP 121/65; TEMP 98.2; O2SAT 97
[2023-06-23 19:53] VITALS: BP 124/62; TEMP 98.8; O2SAT 98
[2023-06-24 05:27] VITALS: BP 128/59; TEMP 97.5; O2SAT 94
[2023-06-24] MEDS: HEPARIN SOD (PORCINE) 5000UNITS/ML 1ML VIAL/SYRINGE SQ SCH (06:02)
[2023-06-24 14:00] VITALS: BP 118/65; TEMP 97.3; O2SAT 95
[2023-06-24 22:00] VITALS: BP 111/55; TEMP 97.7; O2SAT 98
[2023-06-25 05:03] VITALS: BP 116/69; TEMP 97.3; O2SAT 96
[2023-06-25 14:15] VITALS: BP 122/63; TEMP 98.3; O2SAT 97
[2023-06-25 23:30] VITALS: BP 123/62; TEMP 97.7; O2SAT 97
[2023-06-26 06:08] VITALS: BP 119/61; TEMP 97.5; O2SAT 97
[2023-06-26 14:27] VITALS: BP 119/62; TEMP 98.2; O2SAT 96
[2023-06-27 05:41] VITALS: BP 118/62; TEMP 97.3; O2SAT 96
[2023-06-27 09:14] LABS: CK-MB VALUE MASS < 1.0 NG/ML (<3.6)
[2023-06-27 09:16] LABS: ALBUMIN 1.9 G/DL (3.2-5.2); ALKALINE PHOSPHATASE 85 U/L (46-116); ALT/SGPT 13 U/L (7.0-40); AST/SGOT 9 U/L (<34); BILIRUBIN,TOTAL 0.3 MG/DL (0.3-1.2); BLOOD UREA NITROGEN 16 MG/DL (9-23); CALCIUM LEVEL 8.3 MG/DL (8.3-10.6); CARBON DIOXIDE LEVEL 27 MMOL/L (20-31); CHLORIDE LEVEL 105 MMOL/L (98-107); CPK CREATINE PHOSPHOKINASE 18 U/L (46-171); GLOMERULAR FILTRATION RATE > 60.0 (>49); GLUCOSE, FASTING 148 MG/DL (74-106); MB/CK RELATIVE INDEX 5.55 (< OR =4); POTASSIUM SERUM 4.3 MMOL/L (3.5-5.1); SODIUM LEVEL 138 MMOL/L (136-145); TOTAL PROTEIN 6.3 G/DL (5.7-8.2)
[2023-06-27 09:23] LABS: PROCALCITONIN 0.15 ng/ml
[2023-06-27 09:24] LABS: BASO # 0.1 10^3/uL (0.0-0.2); BASO % 0.8 % (0.0-1.0); EOS # 0.3 10^3/uL (0.0-0.5); EOS % 4.1 % (0.0-3.0); HEMATOCRIT 30.9 % (42.0-52.0); HEMOGLOBIN 8.9 g/dl (13.5-17.5); LYMPH # 1.4 10^3/uL (1.5-5.0); LYMPH % 20.2 % (24.0-44.0); MEAN CORPUSCULAR HEMOGLOBIN 22.1 pg (27.0-33.0); MEAN CORPUSCULAR HGB CONC 28.8 g/dl (32.0-36.5); MEAN CORPUSCULAR VOLUME 76.7 fl (80.0-96.0); MONO # 0.5 10^3/uL (0.0-0.8); NEUTROPHILS # 4.8 10^3/uL (1.5-8.5); NEUTROPHILS % 67.2 % (36.0-66.0); PLATELET COUNT, AUTOMATED 481 10^3/uL (150-450); RED BLOOD COUNT 4.03 10^6/uL (4.30-6.10); WHITE BLOOD COUNT 7.1 10^3/uL (4.0-10.0)
[2023-06-27 09:25] LABS: INR 1.11; PARTIAL THROMBOPLASTIN TIME 31.4 SECONDS (24.8-34.2)
[2023-06-27 09:30] LABS: ERYTHROCYTE SEDIMENTATION RATE > 130 mm/hr (0-20)
[2023-06-28 05:37] VITALS: BP 116/63; TEMP 98.2; O2SAT 96
[2023-06-28 07:24] LABS: BASO % 0.5 % (0.0-1.0); EOS # 0.2 10^3/uL (0.0-0.5); EOS % 2.7 % (0.0-3.0); HEMATOCRIT 28.2 % (42.0-52.0); HEMOGLOBIN 8.4 g/dl (13.5-17.5); LYMPH # 1.4 10^3/uL (1.5-5.0); LYMPH % 15.5 % (24.0-44.0); MEAN CORPUSCULAR HEMOGLOBIN 22.2 pg (27.0-33.0); MEAN CORPUSCULAR HGB CONC 29.8 g/dl (32.0-36.5); MEAN CORPUSCULAR VOLUME 74.4 fl (80.0-96.0); MONO # 0.7 10^3/uL (0.0-0.8); MONO % 8.3 % (2.0-8.0); NEUTROPHILS # 6.4 10^3/uL (1.5-8.5); NEUTROPHILS % 72.2 % (36.0-66.0); PLATELET COUNT, AUTOMATED 461 10^3/uL (150-450); RED BLOOD COUNT 3.79 10^6/uL (4.30-6.10); WHITE BLOOD COUNT 8.8 10^3/uL (4.0-10.0)
[2023-06-28 07:53] LABS: BLOOD UREA NITROGEN 16 MG/DL (9-23); CALCIUM LEVEL 8.3 MG/DL (8.3-10.6); CARBON DIOXIDE LEVEL 27 MMOL/L (20-31); CHLORIDE LEVEL 105 MMOL/L (98-107); CREATININE FOR GFR 0.38 MG/DL (0.70-1.30); GLOMERULAR FILTRATION RATE > 60.0 (>49); GLUCOSE, FASTING 185 MG/DL (74-106); POTASSIUM SERUM 3.9 MMOL/L (3.5-5.1); SODIUM LEVEL 137 MMOL/L (136-145)
[2023-06-28 14:35] VITALS: BP 130/57; TEMP 98.4; O2SAT 97
[2023-06-28 20:35] VITALS: BP 122/63; TEMP 97.2; O2SAT 97
[2023-06-29 06:34] VITALS: BP 122/65; TEMP 97.3; O2SAT 96
[2023-06-29 07:32] LABS: BASO # 0.1 10^3/uL (0.0-0.2); BASO % 0.7 % (0.0-1.0); EOS # 0.3 10^3/uL (0.0-0.5); EOS % 3.1 % (0.0-3.0); HEMATOCRIT 28.7 % (42.0-52.0); HEMOGLOBIN 8.5 g/dl (13.5-17.5); LYMPH # 1.6 10^3/uL (1.5-5.0); MEAN CORPUSCULAR HGB CONC 29.6 g/dl (32.0-36.5); MEAN CORPUSCULAR VOLUME 74.2 fl (80.0-96.0); MONO # 0.7 10^3/uL (0.0-0.8); MONO % 8.3 % (2.0-8.0); NEUTROPHILS # 5.4 10^3/uL (1.5-8.5); PLATELET COUNT, AUTOMATED 452 10^3/uL (150-450); RED BLOOD COUNT 3.87 10^6/uL (4.30-6.10); WHITE BLOOD COUNT 8.1 10^3/uL (4.0-10.0)
[2023-06-29 07:53] LABS: BLOOD UREA NITROGEN 18 MG/DL (9-23); CALCIUM LEVEL 7.8 MG/DL (8.3-10.6); CARBON DIOXIDE LEVEL 27 MMOL/L (20-31); CHLORIDE LEVEL 107 MMOL/L (98-107); CREATININE FOR GFR 0.32 MG/DL (0.70-1.30); GLOMERULAR FILTRATION RATE > 60.0 (>49); GLUCOSE, FASTING 163 MG/DL (74-106); MAGNESIUM LEVEL 1.9 MG/DL (1.8-2.4); SODIUM LEVEL 141 MMOL/L (136-145)
[2023-06-29] MEDS: HEPARIN SOD (PORCINE) 5000UNITS/ML 1ML VIAL/SYRINGE SQ SCH (14:01)
[2023-06-29 20:25] VITALS: BP 112/56; TEMP 98.6; O2SAT 95
[2023-06-30 06:18] VITALS: BP 118/72; TEMP 97.7; O2SAT 96
[2023-06-30 07:23] LABS: BASO # 0.1 10^3/uL (0.0-0.2); BASO % 0.6 % (0.0-1.0); EOS # 0.3 10^3/uL (0.0-0.5); EOS % 3.8 % (0.0-3.0); HEMOGLOBIN 8.4 g/dl (13.5-17.5); LYMPH # 1.5 10^3/uL (1.5-5.0); LYMPH % 19.5 % (24.0-44.0); MEAN CORPUSCULAR HEMOGLOBIN 21.7 pg (27.0-33.0); MEAN CORPUSCULAR VOLUME 74.9 fl (80.0-96.0); MONO # 0.6 10^3/uL (0.0-0.8); MONO % 7.5 % (2.0-8.0); NEUTROPHILS # 5.3 10^3/uL (1.5-8.5); NEUTROPHILS % 68.1 % (36.0-66.0); PLATELET COUNT, AUTOMATED 470 10^3/uL (150-450); RED BLOOD COUNT 3.87 10^6/uL (4.30-6.10); WHITE BLOOD COUNT 7.7 10^3/uL (4.0-10.0)
[2023-06-30 07:49] LABS: BLOOD UREA NITROGEN 13 MG/DL (9-23); CALCIUM LEVEL 7.8 MG/DL (8.3-10.6); CARBON DIOXIDE LEVEL 27 MMOL/L (20-31); CHLORIDE LEVEL 106 MMOL/L (98-107); GLOMERULAR FILTRATION RATE > 60.0 (>49); GLUCOSE, FASTING 142 MG/DL (74-106); MAGNESIUM LEVEL 1.8 MG/DL (1.8-2.4); POTASSIUM SERUM 4.1 MMOL/L (3.5-5.1); SODIUM LEVEL 140 MMOL/L (136-145)
[2023-06-30 14:06] VITALS: BP 122/70; TEMP 98.1; O2SAT 96
[2023-07-01 06:00] VITALS: BP 109/60; TEMP 97.8; O2SAT 96
[2023-07-01 07:54] LABS: BASO # 0.1 10^3/uL (0.0-0.2); BASO % 0.8 % (0.0-1.0); EOS # 0.2 10^3/uL (0.0-0.5); EOS % 2.9 % (0.0-3.0); HEMATOCRIT 29.2 % (42.0-52.0); HEMOGLOBIN 8.4 g/dl (13.5-17.5); LYMPH # 1.3 10^3/uL (1.5-5.0); LYMPH % 17.6 % (24.0-44.0); MEAN CORPUSCULAR HEMOGLOBIN 21.6 pg (27.0-33.0); MEAN CORPUSCULAR HGB CONC 28.8 g/dl (32.0-36.5); MEAN CORPUSCULAR VOLUME 75.3 fl (80.0-96.0); MONO # 0.6 10^3/uL (0.0-0.8); MONO % 8.6 % (2.0-8.0); NEUTROPHILS # 5.1 10^3/uL (1.5-8.5); NEUTROPHILS % 69.1 % (36.0-66.0); PLATELET COUNT, AUTOMATED 466 10^3/uL (150-450); RED BLOOD COUNT 3.88 10^6/uL (4.30-6.10); WHITE BLOOD COUNT 7.4 10^3/uL (4.0-10.0)
[2023-07-01 08:23] LABS: BLOOD UREA NITROGEN 12 MG/DL (9-23); CALCIUM LEVEL 8.3 MG/DL (8.3-10.6); CARBON DIOXIDE LEVEL 26 MMOL/L (20-31); CHLORIDE LEVEL 106 MMOL/L (98-107); CREATININE FOR GFR 0.31 MG/DL (0.70-1.30); GLOMERULAR FILTRATION RATE > 60.0 (>49); GLUCOSE, FASTING 151 MG/DL (74-106); MAGNESIUM LEVEL 1.9 MG/DL (1.8-2.4); POTASSIUM SERUM 4.2 MMOL/L (3.5-5.1); SODIUM LEVEL 136 MMOL/L (136-145)
[2023-07-01 14:20] VITALS: BP 118/61; TEMP 99.4; O2SAT 96
[2023-07-02 05:48] VITALS: BP 118/62; TEMP 98.1; O2SAT 96
[2023-07-02 08:11] LABS: BASO # 0.1 10^3/uL (0.0-0.2); BASO % 0.7 % (0.0-1.0); EOS # 0.2 10^3/uL (0.0-0.5); EOS % 3.3 % (0.0-3.0); HEMATOCRIT 30.1 % (42.0-52.0); HEMOGLOBIN 8.9 g/dl (13.5-17.5); LYMPH # 1.5 10^3/uL (1.5-5.0); LYMPH % 21.7 % (24.0-44.0); MEAN CORPUSCULAR HEMOGLOBIN 21.8 pg (27.0-33.0); MEAN CORPUSCULAR HGB CONC 29.6 g/dl (32.0-36.5); MEAN CORPUSCULAR VOLUME 73.6 fl (80.0-96.0); MONO # 0.5 10^3/uL (0.0-0.8); MONO % 7.6 % (2.0-8.0); NEUTROPHILS # 4.4 10^3/uL (1.5-8.5); PLATELET COUNT, AUTOMATED 504 10^3/uL (150-450); RED BLOOD COUNT 4.09 10^6/uL (4.30-6.10); WHITE BLOOD COUNT 6.7 10^3/uL (4.0-10.0)
[2023-07-02 08:37] LABS: BLOOD UREA NITROGEN 15 MG/DL (9-23); CALCIUM LEVEL 8.1 MG/DL (8.3-10.6); CARBON DIOXIDE LEVEL 26 MMOL/L (20-31); CHLORIDE LEVEL 106 MMOL/L (98-107); CREATININE FOR GFR 0.29 MG/DL (0.70-1.30); GLOMERULAR FILTRATION RATE > 60.0 (>49); GLUCOSE, FASTING 143 MG/DL (74-106); MAGNESIUM LEVEL 1.8 MG/DL (1.8-2.4); POTASSIUM SERUM 4.4 MMOL/L (3.5-5.1); SODIUM LEVEL 139 MMOL/L (136-145)
[2023-07-02 14:20] VITALS: BP 118/63; TEMP 98.7; O2SAT 97
[2023-07-02 21:00] VITALS: BP 113/64; TEMP 98.2; O2SAT 97
[2023-07-03 05:00] VITALS: BP 113/62; TEMP 97; O2SAT 97
[2023-07-03 06:05] LABS: BASO # 0.1 10^3/uL (0.0-0.2); BASO % 0.6 % (0.0-1.0); EOS # 0.2 10^3/uL (0.0-0.5); EOS % 1.9 % (0.0-3.0); HEMATOCRIT 32.4 % (42.0-52.0); HEMOGLOBIN 9.4 g/dl (13.5-17.5); LYMPH # 1.4 10^3/uL (1.5-5.0); LYMPH % 14.5 % (24.0-44.0); MEAN CORPUSCULAR HEMOGLOBIN 21.9 pg (27.0-33.0); MEAN CORPUSCULAR VOLUME 75.5 fl (80.0-96.0); MONO # 0.8 10^3/uL (0.0-0.8); MONO % 8.2 % (2.0-8.0); NEUTROPHILS # 7.3 10^3/uL (1.5-8.5); PLATELET COUNT, AUTOMATED 471 10^3/uL (150-450); RED BLOOD COUNT 4.29 10^6/uL (4.30-6.10); WHITE BLOOD COUNT 9.9 10^3/uL (4.0-10.0)
[2023-07-03 06:37] LABS: BLOOD UREA NITROGEN 16 MG/DL (9-23); CALCIUM LEVEL 8.2 MG/DL (8.3-10.6); CARBON DIOXIDE LEVEL 28 MMOL/L (20-31); CHLORIDE LEVEL 104 MMOL/L (98-107); CREATININE FOR GFR 0.38 MG/DL (0.70-1.30); GLOMERULAR FILTRATION RATE > 60.0 (>49); GLUCOSE, FASTING 145 MG/DL (74-106); MAGNESIUM LEVEL 1.9 MG/DL (1.8-2.4); POTASSIUM SERUM 4.5 MMOL/L (3.5-5.1); SODIUM LEVEL 138 MMOL/L (136-145)
[2023-07-03 14:00] VITALS: BP 122/71; TEMP 98.8; O2SAT 98
[2023-07-03 20:19] VITALS: BP 121/68; TEMP 100.7; O2SAT 96
[2023-07-04 05:27] VITALS: BP 113/64; TEMP 98.1; O2SAT 97
[2023-07-04 07:34] LABS: BASO # 0.1 10^3/uL (0.0-0.2); BASO % 0.5 % (0.0-1.0); EOS # 0.2 10^3/uL (0.0-0.5); EOS % 2.1 % (0.0-3.0); HEMATOCRIT 30.7 % (42.0-52.0); HEMOGLOBIN 8.9 g/dl (13.5-17.5); LYMPH # 1.3 10^3/uL (1.5-5.0); LYMPH % 13.6 % (24.0-44.0); MEAN CORPUSCULAR HEMOGLOBIN 21.5 pg (27.0-33.0); MEAN CORPUSCULAR VOLUME 74.3 fl (80.0-96.0); MONO # 0.9 10^3/uL (0.0-0.8); MONO % 9.7 % (2.0-8.0); NEUTROPHILS # 6.7 10^3/uL (1.5-8.5); NEUTROPHILS % 73.6 % (36.0-66.0); PLATELET COUNT, AUTOMATED 508 10^3/uL (150-450); RED BLOOD COUNT 4.13 10^6/uL (4.30-6.10); WHITE BLOOD COUNT 9.2 10^3/uL (4.0-10.0)
[2023-07-04 08:01] LABS: BLOOD UREA NITROGEN 13 MG/DL (9-23); CALCIUM LEVEL 8.1 MG/DL (8.3-10.6); CARBON DIOXIDE LEVEL 27 MMOL/L (20-31); CHLORIDE LEVEL 105 MMOL/L (98-107); CREATININE FOR GFR 0.38 MG/DL (0.70-1.30); GLOMERULAR FILTRATION RATE > 60.0 (>49); GLUCOSE, FASTING 160 MG/DL (74-106); POTASSIUM SERUM 4.3 MMOL/L (3.5-5.1); SODIUM LEVEL 138 MMOL/L (136-145)
[2023-07-04 13:09] LABS: INR 1.13; PARTIAL THROMBOPLASTIN TIME 31.6 SECONDS (24.8-34.2); PROTHROMBIN TIME 14.2 SECONDS (12.5-14.5)
[2023-07-04 13:26] LABS: PROCALCITONIN 0.2 ng/ml
[2023-07-04 14:00] VITALS: BP 119/61; TEMP 100.5; O2SAT 96
[2023-07-04 14:08] LABS: C REACTIVE PROTEIN QUANTITATIV 15.4 MG/DL (<1.0)
[2023-07-04 20:56] VITALS: BP 118/62; TEMP 97.6; O2SAT 96
[2023-07-05] VITALS (9 sets, daily range): BP systolic 117–139; BP diastolic 64–77; TEMP 96.1–97.2; O2SAT 94–96
[2023-07-05 06:31] LABS: BASO # 0.1 10^3/uL (0.0-0.2); BASO % 0.5 % (0.0-1.0); EOS # 0.1 10^3/uL (0.0-0.5); EOS % 1.5 % (0.0-3.0); HEMATOCRIT 30.3 % (42.0-52.0); HEMOGLOBIN 8.9 g/dl (13.5-17.5); LYMPH # 1.5 10^3/uL (1.5-5.0); LYMPH % 15.9 % (24.0-44.0); MEAN CORPUSCULAR HEMOGLOBIN 21.5 pg (27.0-33.0); MEAN CORPUSCULAR HGB CONC 29.4 g/dl (32.0-36.5); MEAN CORPUSCULAR VOLUME 73.2 fl (80.0-96.0); MONO # 0.9 10^3/uL (0.0-0.8); MONO % 9.9 % (2.0-8.0); NEUTROPHILS # 6.5 10^3/uL (1.5-8.5); NEUTROPHILS % 71.8 % (36.0-66.0); PLATELET COUNT, AUTOMATED 501 10^3/uL (150-450); RED BLOOD COUNT 4.14 10^6/uL (4.30-6.10); WHITE BLOOD COUNT 9.1 10^3/uL (4.0-10.0)
[2023-07-05 07:05] LABS: BLOOD UREA NITROGEN 11 MG/DL (9-23); CALCIUM LEVEL 7.9 MG/DL (8.3-10.6); CARBON DIOXIDE LEVEL 26 MMOL/L (20-31); CHLORIDE LEVEL 105 MMOL/L (98-107); CREATININE FOR GFR 0.32 MG/DL (0.70-1.30); GLOMERULAR FILTRATION RATE > 60.0 (>49); GLUCOSE, FASTING 161 MG/DL (74-106); POTASSIUM SERUM 4.3 MMOL/L (3.5-5.1); SODIUM LEVEL 136 MMOL/L (136-145)
[2023-07-05] MEDS: CIPROFLOXACIN/D5W 400 MG/200 ML BAG As Ordered ONE (08:28)
[2023-07-05] MEDS: LIDOCAINE 1% SDV 30ML VIAL As Ordered ONE (09:45)
[2023-07-06] VITALS (8 sets, daily range): BP systolic 113–132; BP diastolic 54–65; TEMP 97.3–98.6; O2SAT 91–96
[2023-07-06 06:18] LABS: BASO % 0.2 % (0.0-1.0); EOS % 0.1 % (0.0-3.0); HEMATOCRIT 27.3 % (42.0-52.0); HEMOGLOBIN 8.1 g/dl (13.5-17.5); LYMPH # 1.3 10^3/uL (1.5-5.0); MEAN CORPUSCULAR HEMOGLOBIN 21.7 pg (27.0-33.0); MEAN CORPUSCULAR HGB CONC 29.7 g/dl (32.0-36.5); MEAN CORPUSCULAR VOLUME 73.2 fl (80.0-96.0); MONO # 0.8 10^3/uL (0.0-0.8); MONO % 7.1 % (2.0-8.0); NEUTROPHILS # 8.7 10^3/uL (1.5-8.5); NEUTROPHILS % 79.7 % (36.0-66.0); PLATELET COUNT, AUTOMATED 465 10^3/uL (150-450); RED BLOOD COUNT 3.73 10^6/uL (4.30-6.10); WHITE BLOOD COUNT 10.9 10^3/uL (4.0-10.0)
[2023-07-06 06:39] LABS: BLOOD UREA NITROGEN 10 MG/DL (9-23); CALCIUM LEVEL 7.7 MG/DL (8.3-10.6); CARBON DIOXIDE LEVEL 25 MMOL/L (20-31); CHLORIDE LEVEL 102 MMOL/L (98-107); CREATININE FOR GFR 0.31 MG/DL (0.70-1.30); GLOMERULAR FILTRATION RATE > 60.0 (>49); GLUCOSE, FASTING 130 MG/DL (74-106); POTASSIUM SERUM 4.4 MMOL/L (3.5-5.1); SODIUM LEVEL 135 MMOL/L (136-145)
[2023-07-06 19:07] LABS: HEMATOCRIT 31.6 % (42.0-52.0); HEMOGLOBIN 9.7 g/dl (13.5-17.5)
[2023-07-06] MEDS: HEPARIN SOD (PORCINE) 5000UNITS/ML 1ML VIAL/SYRINGE SQ SCH (21:06)
[2023-07-07] VITALS (8 sets, daily range): BP systolic 117–128; BP diastolic 63–77; TEMP 97.8–99.9; O2SAT 95–99
[2023-07-07 06:06] LABS: BASO # 0.1 10^3/uL (0.0-0.2); EOS # 0.3 10^3/uL (0.0-0.5); EOS % 3.7 % (0.0-3.0); HEMATOCRIT 29.9 % (42.0-52.0); LYMPH # 1.9 10^3/uL (1.5-5.0); LYMPH % 22.2 % (24.0-44.0); MEAN CORPUSCULAR HEMOGLOBIN 22.8 pg (27.0-33.0); MEAN CORPUSCULAR HGB CONC 30.1 g/dl (32.0-36.5); MEAN CORPUSCULAR VOLUME 75.7 fl (80.0-96.0); MONO # 0.8 10^3/uL (0.0-0.8); MONO % 9.9 % (2.0-8.0); NEUTROPHILS # 5.2 10^3/uL (1.5-8.5); NEUTROPHILS % 62.5 % (36.0-66.0); PLATELET COUNT, AUTOMATED 436 10^3/uL (150-450); RED BLOOD COUNT 3.95 10^6/uL (4.30-6.10); WHITE BLOOD COUNT 8.4 10^3/uL (4.0-10.0)
[2023-07-07 06:35] LABS: BLOOD UREA NITROGEN 9 MG/DL (9-23); CARBON DIOXIDE LEVEL 27 MMOL/L (20-31); CHLORIDE LEVEL 106 MMOL/L (98-107); CREATININE FOR GFR 0.32 MG/DL (0.70-1.30); GLOMERULAR FILTRATION RATE > 60.0 (>49); GLUCOSE, FASTING 98 MG/DL (74-106); POTASSIUM SERUM 4.1 MMOL/L (3.5-5.1); SODIUM LEVEL 138 MMOL/L (136-145)
[2023-07-07] MEDS: FUROSEMIDE 20MG/2ML VIAL IV ONE (12:48)
[2023-07-08 06:04] VITALS: BP 130/67; TEMP 98.2; O2SAT 93
[2023-07-08 06:11] LABS: BASO # 0.1 10^3/uL (0.0-0.2); BASO % 0.9 % (0.0-1.0); EOS # 0.5 10^3/uL (0.0-0.5); EOS % 4.5 % (0.0-3.0); HEMATOCRIT 33.7 % (42.0-52.0); HEMOGLOBIN 10.4 g/dl (13.5-17.5); LYMPH # 1.9 10^3/uL (1.5-5.0); LYMPH % 18.5 % (24.0-44.0); MEAN CORPUSCULAR HEMOGLOBIN 23.3 pg (27.0-33.0); MEAN CORPUSCULAR HGB CONC 30.9 g/dl (32.0-36.5); MEAN CORPUSCULAR VOLUME 75.4 fl (80.0-96.0); MONO # 1.1 10^3/uL (0.0-0.8); MONO % 10.8 % (2.0-8.0); NEUTROPHILS # 6.4 10^3/uL (1.5-8.5); NEUTROPHILS % 64.2 % (36.0-66.0); PLATELET COUNT, AUTOMATED 432 10^3/uL (150-450); RED BLOOD COUNT 4.47 10^6/uL (4.30-6.10)
[2023-07-08 06:35] LABS: BLOOD UREA NITROGEN 13 MG/DL (9-23); CALCIUM LEVEL 8.5 MG/DL (8.3-10.6); CARBON DIOXIDE LEVEL 26 MMOL/L (20-31); CHLORIDE LEVEL 105 MMOL/L (98-107); CREATININE FOR GFR 0.33 MG/DL (0.70-1.30); GLOMERULAR FILTRATION RATE > 60.0 (>49); GLUCOSE, FASTING 141 MG/DL (74-106); POTASSIUM SERUM 3.7 MMOL/L (3.5-5.1); SODIUM LEVEL 139 MMOL/L (136-145)
[2023-07-08 14:11] VITALS: BP 134/58; TEMP 98.7; O2SAT 95
[2023-07-08 14:49] VITALS: BP 121/59; TEMP 99.3; O2SAT 97
[2023-07-08 20:30] VITALS: BP 119/52; TEMP 97; O2SAT 96
[2023-07-09 05:06] VITALS: BP 123/82; TEMP 97.3; O2SAT 97
[2023-07-09 07:13] LABS: BASO # 0.1 10^3/uL (0.0-0.2); BASO % 0.9 % (0.0-1.0); EOS # 0.3 10^3/uL (0.0-0.5); EOS % 3.1 % (0.0-3.0); HEMATOCRIT 34.9 % (42.0-52.0); HEMOGLOBIN 10.5 g/dl (13.5-17.5); LYMPH # 1.6 10^3/uL (1.5-5.0); LYMPH % 18.8 % (24.0-44.0); MEAN CORPUSCULAR HEMOGLOBIN 23.2 pg (27.0-33.0); MEAN CORPUSCULAR HGB CONC 30.1 g/dl (32.0-36.5); MONO # 0.7 10^3/uL (0.0-0.8); MONO % 7.5 % (2.0-8.0); NEUTROPHILS # 5.9 10^3/uL (1.5-8.5); NEUTROPHILS % 68.1 % (36.0-66.0); PLATELET COUNT, AUTOMATED 410 10^3/uL (150-450); RED BLOOD COUNT 4.53 10^6/uL (4.30-6.10); WHITE BLOOD COUNT 8.7 10^3/uL (4.0-10.0)
[2023-07-09 07:36] LABS: BLOOD UREA NITROGEN 10 MG/DL (9-23); CALCIUM LEVEL 8.8 MG/DL (8.3-10.6); CARBON DIOXIDE LEVEL 25 MMOL/L (20-31); CHLORIDE LEVEL 104 MMOL/L (98-107); GLOMERULAR FILTRATION RATE > 60.0 (>49); GLUCOSE, FASTING 154 MG/DL (74-106); SODIUM LEVEL 135 MMOL/L (136-145)
[2023-07-09 14:42] VITALS: BP 125/76; TEMP 97.2; O2SAT 96
[2023-07-09 20:30] VITALS: BP 125/75; TEMP 97.3; O2SAT 99
[2023-07-10 05:30] VITALS: BP 122/65; TEMP 97.2; O2SAT 96
[2023-07-10 07:15] LABS: BASO # 0.1 10^3/uL (0.0-0.2); BASO % 0.8 % (0.0-1.0); EOS # 0.3 10^3/uL (0.0-0.5); EOS % 2.8 % (0.0-3.0); HEMOGLOBIN 11.1 g/dl (13.5-17.5); LYMPH # 1.7 10^3/uL (1.5-5.0); LYMPH % 15.3 % (24.0-44.0); MEAN CORPUSCULAR HEMOGLOBIN 23.3 pg (27.0-33.0); MEAN CORPUSCULAR VOLUME 77.7 fl (80.0-96.0); MONO # 0.9 10^3/uL (0.0-0.8); MONO % 7.9 % (2.0-8.0); NEUTROPHILS # 7.9 10^3/uL (1.5-8.5); NEUTROPHILS % 71.5 % (36.0-66.0); PLATELET COUNT, AUTOMATED 461 10^3/uL (150-450); RED BLOOD COUNT 4.76 10^6/uL (4.30-6.10); WHITE BLOOD COUNT 11.1 10^3/uL (4.0-10.0)
[2023-07-10 07:39] LABS: BLOOD UREA NITROGEN 16 MG/DL (9-23); CALCIUM LEVEL 8.8 MG/DL (8.3-10.6); CARBON DIOXIDE LEVEL 27 MMOL/L (20-31); CHLORIDE LEVEL 104 MMOL/L (98-107); CREATININE FOR GFR 0.29 MG/DL (0.70-1.30); GLOMERULAR FILTRATION RATE > 60.0 (>49); GLUCOSE, FASTING 148 MG/DL (74-106); POTASSIUM SERUM 4.4 MMOL/L (3.5-5.1); SODIUM LEVEL 137 MMOL/L (136-145)
[2023-07-10 14:00] VITALS: BP 123/65; TEMP 98.1; O2SAT 96
[2023-07-10 19:43] VITALS: BP 122/65; TEMP 96.7; O2SAT 95
[2023-07-11 05:30] VITALS: BP 124/65; TEMP 97.7; O2SAT 97
[2023-07-11 06:59] LABS: BASO # 0.1 10^3/uL (0.0-0.2); BASO % 0.6 % (0.0-1.0); EOS # 0.3 10^3/uL (0.0-0.5); EOS % 2.8 % (0.0-3.0); HEMATOCRIT 36.9 % (42.0-52.0); HEMOGLOBIN 11.1 g/dl (13.5-17.5); LYMPH # 1.6 10^3/uL (1.5-5.0); LYMPH % 17.2 % (24.0-44.0); MEAN CORPUSCULAR HEMOGLOBIN 23.3 pg (27.0-33.0); MEAN CORPUSCULAR HGB CONC 30.1 g/dl (32.0-36.5); MEAN CORPUSCULAR VOLUME 77.5 fl (80.0-96.0); MONO # 0.8 10^3/uL (0.0-0.8); NEUTROPHILS # 6.7 10^3/uL (1.5-8.5); NEUTROPHILS % 70.1 % (36.0-66.0); PLATELET COUNT, AUTOMATED 413 10^3/uL (150-450); RED BLOOD COUNT 4.76 10^6/uL (4.30-6.10); WHITE BLOOD COUNT 9.5 10^3/uL (4.0-10.0)
[2023-07-11 07:07] LABS: BLOOD UREA NITROGEN 19 MG/DL (9-23); CALCIUM LEVEL 8.8 MG/DL (8.3-10.6); CARBON DIOXIDE LEVEL 27 MMOL/L (20-31); CHLORIDE LEVEL 104 MMOL/L (98-107); CREATININE FOR GFR 0.31 MG/DL (0.70-1.30); GLOMERULAR FILTRATION RATE > 60.0 (>49); GLUCOSE, FASTING 177 MG/DL (74-106); POTASSIUM SERUM 4.3 MMOL/L (3.5-5.1); SODIUM LEVEL 138 MMOL/L (136-145)
[2023-07-11 19:48] VITALS: BP 123/64; TEMP 97.9; O2SAT 96
[2023-07-12 05:35] VITALS: BP 120/64; TEMP 97; O2SAT 98
[2023-07-12 07:05] LABS: HEMATOCRIT 35.9 % (42.0-52.0); HEMOGLOBIN 10.8 g/dl (13.5-17.5); MEAN CORPUSCULAR HEMOGLOBIN 23.5 pg (27.0-33.0); MEAN CORPUSCULAR HGB CONC 30.1 g/dl (32.0-36.5); MEAN CORPUSCULAR VOLUME 78.2 fl (80.0-96.0); PLATELET COUNT, AUTOMATED 388 10^3/uL (150-450); RED BLOOD COUNT 4.59 10^6/uL (4.30-6.10); WHITE BLOOD COUNT 9.6 10^3/uL (4.0-10.0)
[2023-07-12 08:00] VITALS: BP 119/80; TEMP 97.9; O2SAT 96
[2023-07-12 20:05] VITALS: BP 120/81; TEMP 98.2; O2SAT 95
[2023-07-12] MEDS: MIRALAX *UNIT DOSE* 17GM PACKET PO SCH (21:34)
[2023-07-13 05:55] VITALS: BP 128/69; TEMP 97.9; O2SAT 96
[2023-07-13 14:51] VITALS: BP 129/64; TEMP 98.4; O2SAT 97
[2023-07-13 21:15] VITALS: BP 125/64; TEMP 98.2; O2SAT 98
[2023-07-14 06:18] VITALS: BP 123/69; TEMP 97.5; O2SAT 95
[2023-07-14 16:14] VITALS: BP 126/82; TEMP 98.8; O2SAT 98
[2023-07-14 21:02] VITALS: BP 139/75; TEMP 98.6; O2SAT 97
[2023-07-15 05:40] VITALS: BP 129/77; TEMP 97.2; O2SAT 94
[2023-07-15 08:09] LABS: HEMATOCRIT 35.6 % (42.0-52.0); HEMOGLOBIN 10.8 g/dl (13.5-17.5); MEAN CORPUSCULAR HEMOGLOBIN 23.1 pg (27.0-33.0); MEAN CORPUSCULAR HGB CONC 30.3 g/dl (32.0-36.5); MEAN CORPUSCULAR VOLUME 76.2 fl (80.0-96.0); PLATELET COUNT, AUTOMATED 396 10^3/uL (150-450); RED BLOOD COUNT 4.67 10^6/uL (4.30-6.10); WHITE BLOOD COUNT 9.1 10^3/uL (4.0-10.0)
[2023-07-15 14:00] VITALS: BP 125/75; TEMP 98.1; O2SAT 96
[2023-07-15 20:00] VITALS: BP 125/75; TEMP 98.1; O2SAT 96
[2023-07-15 20:39] VITALS: BP 126/74; TEMP 98.2; O2SAT 96
[2023-07-16 05:23] VITALS: BP 127/75; TEMP 98.1; O2SAT 96
[2023-07-16 14:30] VITALS: BP 116/78; TEMP 97.8; O2SAT 98
[2023-07-16 20:32] VITALS: BP 118/68; TEMP 97.5; O2SAT 96
[2023-07-17 06:24] VITALS: BP 122/67; TEMP 97.9; O2SAT 96
[2023-07-17 14:04] VITALS: BP 123/61; TEMP 98.4; O2SAT 96
[2023-07-17 19:39] VITALS: BP 114/60; TEMP 99.5; O2SAT 100
[2023-07-18 05:37] VITALS: BP 131/74; TEMP 97.9; O2SAT 96
[2023-07-18 06:16] LABS: HEMATOCRIT 34.6 % (42.0-52.0); HEMOGLOBIN 10.5 g/dl (13.5-17.5); MEAN CORPUSCULAR HEMOGLOBIN 22.9 pg (27.0-33.0); MEAN CORPUSCULAR HGB CONC 30.3 g/dl (32.0-36.5); MEAN CORPUSCULAR VOLUME 75.4 fl (80.0-96.0); PLATELET COUNT, AUTOMATED 362 10^3/uL (150-450); RED BLOOD COUNT 4.59 10^6/uL (4.30-6.10); WHITE BLOOD COUNT 8.9 10^3/uL (4.0-10.0)
[2023-07-18 06:35] LABS: BLOOD UREA NITROGEN 14 MG/DL (9-23); CALCIUM LEVEL 8.5 MG/DL (8.3-10.6); CARBON DIOXIDE LEVEL 27 MMOL/L (20-31); CHLORIDE LEVEL 99 MMOL/L (98-107); CREATININE FOR GFR 0.33 MG/DL (0.70-1.30); GLOMERULAR FILTRATION RATE > 60.0 (>49); GLUCOSE, FASTING 186 MG/DL (74-106); SODIUM LEVEL 134 MMOL/L (136-145)
[2023-07-18 08:28] LABS: IRON (FE) 15 UG/DL (65-175); PERCENT SATURATION 6.2 % (19.7-50.0); TOTAL IRON BINDING CAPACITY 242 UG/DL (250-425)
[2023-07-18 08:30] LABS: FERRITIN 113.5 NG/ML (10.5-307.3); FOLATE 13.79 NG/ML (>5.4); VITAMIN B12 LEVEL 658 PG/ML (211-911)
[2023-07-18] MEDS: FERRIC CARBOXYMALTOSE INJ 750 MG, VIAL MATE ADAPTER 1 EACH in NS 250 ML IV ONE (12:45)
[2023-07-18 14:00] VITALS: BP 132/57; TEMP 98.6; O2SAT 93
[2023-07-18 19:49] VITALS: BP 128/62; TEMP 99.3; O2SAT 97
[2023-07-19 05:29] VITALS: BP 126/60; TEMP 97.5; O2SAT 95
[2023-07-19 15:24] VITALS: BP 124/59; TEMP 98.2; O2SAT 99
[2023-07-19 21:30] VITALS: BP 122/57; TEMP 99; O2SAT 99
[2023-07-20 05:29] VITALS: BP 117/61; TEMP 98.1; O2SAT 94
[2023-07-20 14:00] VITALS: BP 120/65; TEMP 99; O2SAT 96
[2023-07-20 20:31] VITALS: BP 136/78; TEMP 98.4; O2SAT 96
[2023-07-21 06:15] VITALS: BP 113/66; TEMP 98.1; O2SAT 97
[2023-07-21 06:37] LABS: HEMATOCRIT 32.6 % (42.0-52.0); HEMOGLOBIN 9.9 g/dl (13.5-17.5); MEAN CORPUSCULAR HGB CONC 30.4 g/dl (32.0-36.5); MEAN CORPUSCULAR VOLUME 75.6 fl (80.0-96.0); PLATELET COUNT, AUTOMATED 301 10^3/uL (150-450); RED BLOOD COUNT 4.31 10^6/uL (4.30-6.10); WHITE BLOOD COUNT 9.3 10^3/uL (4.0-10.0)
[2023-07-21 07:08] LABS: BLOOD UREA NITROGEN 14 MG/DL (9-23); CALCIUM LEVEL 8.7 MG/DL (8.3-10.6); CARBON DIOXIDE LEVEL 27 MMOL/L (20-31); CHLORIDE LEVEL 101 MMOL/L (98-107); CREATININE FOR GFR 0.31 MG/DL (0.70-1.30); GLOMERULAR FILTRATION RATE > 60.0 (>49); GLUCOSE, FASTING 184 MG/DL (74-106); POTASSIUM SERUM 4.5 MMOL/L (3.5-5.1); SODIUM LEVEL 135 MMOL/L (136-145)
[2023-07-21 14:58] VITALS: BP 115/59; TEMP 98.2; O2SAT 97
[2023-07-21 21:54] VITALS: BP 125/67; TEMP 98.6; O2SAT 96
[2023-07-22 06:25] VITALS: BP 134/75; TEMP 96.6
[2023-07-22 13:21] VITALS: BP 119/56; TEMP 98.4; O2SAT 98
[2023-07-22 20:39] VITALS: BP 121/62; TEMP 99; O2SAT 98
[2023-07-23 05:37] VITALS: BP 117/62; TEMP 98; O2SAT 91
[2023-07-23 14:40] VITALS: BP 114/52; TEMP 98.2; O2SAT 98
[2023-07-24 06:18] VITALS: BP 119/54; TEMP 98; O2SAT 93
[2023-07-24 06:56] LABS: HEMOGLOBIN 10.7 g/dl (13.5-17.5); MEAN CORPUSCULAR HEMOGLOBIN 23.5 pg (27.0-33.0); MEAN CORPUSCULAR HGB CONC 30.6 g/dl (32.0-36.5); MEAN CORPUSCULAR VOLUME 76.8 fl (80.0-96.0); PLATELET COUNT, AUTOMATED 403 10^3/uL (150-450); RED BLOOD COUNT 4.56 10^6/uL (4.30-6.10); WHITE BLOOD COUNT 8.9 10^3/uL (4.0-10.0)
[2023-07-24 07:20] LABS: BLOOD UREA NITROGEN 14 MG/DL (9-23); CALCIUM LEVEL 8.9 MG/DL (8.3-10.6); CARBON DIOXIDE LEVEL 28 MMOL/L (20-31); CHLORIDE LEVEL 100 MMOL/L (98-107); CREATININE FOR GFR 0.31 MG/DL (0.70-1.30); GLOMERULAR FILTRATION RATE > 60.0 (>49); GLUCOSE, FASTING 164 MG/DL (74-106); POTASSIUM SERUM 4.1 MMOL/L (3.5-5.1); SODIUM LEVEL 134 MMOL/L (136-145)
[2023-07-24 14:00] VITALS: BP 126/65; TEMP 98.2; O2SAT 98
[2023-07-24 20:06] VITALS: BP 124/56; TEMP 99; O2SAT 96
[2023-07-25 06:22] VITALS: BP 118/57; TEMP 96.6; O2SAT 96
[2023-07-25] MEDS: FERRIC CARBOXYMALTOSE INJ 750 MG, VIAL MATE ADAPTER 1 EACH in NS 250 ML IV ONE (09:00)
[2023-07-25 14:52] VITALS: BP 118/67; TEMP 98.8; O2SAT 100
[2023-07-25 21:35] VITALS: BP 137/62; TEMP 99; O2SAT 97
[2023-07-26 05:59] VITALS: BP 130/66; TEMP 98.1; O2SAT 96
[2023-07-26 08:15] VITALS: BP 132/68; TEMP 98.7; O2SAT 92
[2023-07-26 21:16] VITALS: BP 115/54; TEMP 97.9; O2SAT 96
[2023-07-27 06:23] VITALS: BP 109/71; TEMP 97.7; O2SAT 96
[2023-07-27 07:10] LABS: HEMATOCRIT 34.5 % (42.0-52.0); HEMOGLOBIN 10.5 g/dl (13.5-17.5); MEAN CORPUSCULAR HEMOGLOBIN 23.2 pg (27.0-33.0); MEAN CORPUSCULAR HGB CONC 30.4 g/dl (32.0-36.5); MEAN CORPUSCULAR VOLUME 76.2 fl (80.0-96.0); PLATELET COUNT, AUTOMATED 397 10^3/uL (150-450); RED BLOOD COUNT 4.53 10^6/uL (4.30-6.10); WHITE BLOOD COUNT 11.4 10^3/uL (4.0-10.0)
[2023-07-27 07:24] LABS: BLOOD UREA NITROGEN 13 MG/DL (9-23); CALCIUM LEVEL 8.5 MG/DL (8.3-10.6); CARBON DIOXIDE LEVEL 26 MMOL/L (20-31); CHLORIDE LEVEL 101 MMOL/L (98-107); CREATININE FOR GFR 0.34 MG/DL (0.70-1.30); GLOMERULAR FILTRATION RATE > 60.0 (>49); GLUCOSE, FASTING 165 MG/DL (74-106); SODIUM LEVEL 134 MMOL/L (136-145)
[2023-07-27 15:18] VITALS: BP 111/60; TEMP 98.1; O2SAT 95
[2023-07-27 21:00] VITALS: BP 114/60; TEMP 98.2; O2SAT 96
[2023-07-28 05:33] VITALS: BP 119/66; TEMP 98.2; O2SAT 96
[2023-07-28 14:45] VITALS: BP 118/61; TEMP 98.6; O2SAT 98
[2023-07-28 22:31] VITALS: BP 118/61; TEMP 98.1; O2SAT 97
[2023-07-29 06:59] VITALS: BP 103/59; TEMP 98.1; O2SAT 96
[2023-07-29 07:23] VITALS: BP 103/60; TEMP 98.8; O2SAT 98
[2023-07-29 13:54] VITALS: BP 110/55; TEMP 98.2; O2SAT 97
[2023-07-29 21:44] VITALS: BP 131/63; TEMP 98.1; O2SAT 96
[2023-07-30 06:51] VITALS: BP 126/65; TEMP 97.9; O2SAT 96
[2023-07-30 07:21] LABS: HEMATOCRIT 36.3 % (42.0-52.0); HEMOGLOBIN 10.9 g/dl (13.5-17.5); MEAN CORPUSCULAR HEMOGLOBIN 23.6 pg (27.0-33.0); MEAN CORPUSCULAR VOLUME 78.6 fl (80.0-96.0); PLATELET COUNT, AUTOMATED 393 10^3/uL (150-450); RED BLOOD COUNT 4.62 10^6/uL (4.30-6.10); WHITE BLOOD COUNT 8.8 10^3/uL (4.0-10.0)
[2023-07-30 07:25] VITALS: BP 120/66; TEMP 97.7; O2SAT 97
[2023-07-30 21:15] VITALS: BP 121/58; TEMP 98.2; O2SAT 99
[2023-07-31 06:14] VITALS: BP 117/64; TEMP 97.9; O2SAT 97
[2023-07-31 13:35] VITALS: BP 114/59; TEMP 98.2; O2SAT 97
[2023-07-31 17:45] VITALS: BP 111/60; TEMP 96.6; O2SAT 100
[2023-07-31 19:49] VITALS: BP 111/56; TEMP 97.4; O2SAT 96
[2023-08-01 05:40] VITALS: BP 114/68; TEMP 97.9; O2SAT 96
[2023-08-01 15:16] VITALS: BP 116/68; TEMP 98.4; O2SAT 96
[2023-08-01 19:47] VITALS: BP 117/55; TEMP 98.2; O2SAT 97
[2023-08-02 06:00] VITALS: BP 95/53; TEMP 98.2; O2SAT 95
[2023-08-02 08:34] LABS: HEMATOCRIT 35.2 % (42.0-52.0); HEMOGLOBIN 10.9 g/dl (13.5-17.5); MEAN CORPUSCULAR HEMOGLOBIN 24.2 pg (27.0-33.0); PLATELET COUNT, AUTOMATED 397 10^3/uL (150-450); RED BLOOD COUNT 4.51 10^6/uL (4.30-6.10); WHITE BLOOD COUNT 7.8 10^3/uL (4.0-10.0)
[2023-08-02 14:00] VITALS: BP 114/56; TEMP 98.2; O2SAT 94
[2023-08-02 22:00] VITALS: BP 115/56; TEMP 97.5; O2SAT 96
[2023-08-03 05:58] VITALS: BP 114/57; TEMP 97.5; O2SAT 96
[2023-08-03 14:21] VITALS: BP 114/56; TEMP 98.2; O2SAT 99
[2023-08-03 21:46] VITALS: BP 120/65; TEMP 98.1; O2SAT 96
[2023-08-04 06:37] VITALS: BP 119/66; TEMP 98.1; O2SAT 96
[2023-08-04 14:00] VITALS: BP 120/66; TEMP 98.8; O2SAT 95
[2023-08-04 20:39] VITALS: BP 121/66; TEMP 97.9; O2SAT 96
[2023-08-05 06:24] VITALS: BP 98/56; TEMP 98.1; O2SAT 96
[2023-08-05 08:13] VITALS: BP 113/66
[2023-08-05 08:15] VITALS: BP 113/66; TEMP 98.1; O2SAT 96
[2023-08-05 13:42] VITALS: BP 112/72; TEMP 97.9; O2SAT 96
[2023-08-05 20:07] VITALS: BP 105/54; TEMP 98.1; O2SAT 96
[2023-08-06 06:17] VITALS: BP 115/61; TEMP 97.9; O2SAT 96
[2023-08-06 15:33] VITALS: BP 117/61; TEMP 97.7; O2SAT 99
[2023-08-06] MEDS: metFORMIN (GLUCOPHAGE) 1000MG TABLET PO SCH (18:38)
[2023-08-06 21:46] VITALS: BP 118/62; TEMP 97.5; O2SAT 98
[2023-08-07 06:30] VITALS: BP 114/52; TEMP 97.7; O2SAT 96
[2023-08-07 14:00] VITALS: BP 113/62; TEMP 98.2; O2SAT 100
[2023-08-07 20:28] VITALS: BP 117/62; TEMP 98.2; O2SAT 99
[2023-08-08 06:06] VITALS: BP 119/61; TEMP 98.6; O2SAT 93
[2023-08-08 15:12] VITALS: BP 117/60; TEMP 98.8; O2SAT 95
[2023-08-08 20:50] VITALS: BP 121/65; TEMP 98.2; O2SAT 96
[2023-08-09 05:44] VITALS: BP 120/65; TEMP 97; O2SAT 95
[2023-08-09 14:20] VITALS: BP 119/62; TEMP 97.5; O2SAT 95
[2023-08-09 21:30] VITALS: BP 118/65; TEMP 97.9; O2SAT 100
[2023-08-10 06:36] VITALS: BP 117/65; TEMP 97.9; O2SAT 95
[2023-08-10 21:45] VITALS: BP 120/65; TEMP 98.4; O2SAT 95
[2023-08-11 06:18] VITALS: BP 120/65; TEMP 98.1; O2SAT 91
[2023-08-11 23:08] VITALS: BP 116/59; TEMP 97.9; O2SAT 94
[2023-08-12 07:01] VITALS: BP 113/69; TEMP 98.8; O2SAT 96
[2023-08-12 18:00] VITALS: BP 113/58; TEMP 98.1; O2SAT 98
[2023-08-12 21:15] VITALS: BP 130/73; TEMP 97.9; O2SAT 96
[2023-08-13 06:00] VITALS: BP 123/60; TEMP 97.3; O2SAT 95
[2023-08-13 14:25] VITALS: BP 117/64; TEMP 97.5; O2SAT 96
[2023-08-13 21:15] VITALS: BP 123/61; TEMP 98.1; O2SAT 98
[2023-08-14 06:13] VITALS: BP 121/62; TEMP 97.7; O2SAT 96
[2023-08-14 14:50] VITALS: BP 126/63; TEMP 98.1; O2SAT 97
[2023-08-14 19:51] VITALS: BP 122/62; TEMP 98.1; O2SAT 95
[~2023-08-15] VITALS: Ht 182.9 cm; Wt 93.9 kg
[2023-08-15 05:23] VITALS: BP 128/65; TEMP 97.9; O2SAT 96
[~2023-08-15 12:35] MED LIST changes: +ACET1TAB55 PO; +ACETAMINOPHEN 1000MG 100ML IV BAG As Ordered ONE; +ALBUTEROL SULFATE 2.5MG/0.5ML INH NEB SOLN NEB PRN; +BARIUM SULFATE 700 MG TABLET (E-Z-DISK) As Ordered ONE; +BISAC5TA PO; +BISACODYL 10MG SUPP PR PRN; +BOUDREAUX'S BUTT PASTE TOP PRN; +COLA100C5 PO; +DEXTROSE 50% 50ML SYRINGE IV PRN; +E-Z-PAQUE 96% w/w SUSP 176GM BTL As Ordered ONE; +E-Z-PAQUE 96% w/w SUSP 176GM BTL ONE; +FOLIC ACID 1MG TAB PO SCH; +FREEMIS45 XX; +FURO20TA2 PO; +GASTROGRAFIN SOLUTION 30ML PO SCH; +GLUCAGON INJ 1MG VIAL SC PRN; +GLUCOSE 4 GM CHEW PO PRN; +GNPPAD5 XX; +GUAI100S51 PO; +HOME MED LIST COMPLETE! XX SCH; +HYDROCORTISONE 1% CREAM 30GM TOP ONE; +ISOVUE-370 76% 100ML VIAL As Ordered ONE; +KETO2CR TOP; +KETOROLAC 60MG 2ML VIAL As Ordered ONE; +LACTOBACILLUS ACIDOPHILUS CAP (BACID) PO PRN; +LANTINJ4 SC; +LIDOCAINE 1% MDV 20ML VIAL As Ordered ONE; +LIDOCAINE 2% 100MG/5ML SDV (FOR ANES.) As Ordered ONE; +LORazepam 2 MG TAB PO PRN; +MAGN400T2 PO; +METF10004 PO; +METOCLOPRAMIDE INJ 10MG/2ML VIAL As Ordered ONE; +MIDAZOLAM INJ 2MG/2ML VIAL As Ordered ONE; +MIRA3350 PO; +MIRA33506 PO; +MOM 30ML SUSPENSION UDC PO PRN; +MORPHINE 2 MG/ML 1ML VIAL IV PRN; +MULTIVITAMINS/MINERALS THERAP 1 TAB PO SCH; +NEOM28OI TOP; +NON-FORMULARY 1 EA EA IV SCH; +NYST10006 TOP; +NYST1POW9 TOP; +OMEP-173 PO; +ONDANSETRON 4MG 2ML VIAL As Ordered ONE; +ONDANSETRON 4MG 2ML VIAL IV PRN; +OXYB-54 PO; -OXYB5TAB PO; +PERCOCET 5MG/325MG TAB PO ONE; +PILL CUTTER 1 EACH XX ONE; +RISATAB3 PO; +ROCURONIUM BROMIDE 50MG/5ML VIAL As Ordered ONE; +SANT250O8 TOP; +SENN-111 PO; -SIMV20TA2 PO; +SIMV20TA22 PO; +SUGAMMADEX SODIUM 500 MG/5 ML VIAL (BRIDION) As Ordered ONE; +THIAMINE 100 MG TAB PO SCH; +VANCOMYCIN HCL 1,000 MG, VIAL MATE ADAPTER 1 EACH in D5W 250 ML IV SCH; +VANCOMYCIN HCL 15 MG in IV FLUID PLACE HOLDER 1 EA IV SCH; +VANI1CRE5 TOP; +VARIBAR NECTAR 40% w/v 240ML SUSP BTL As Ordered ONE; +VARIBAR NECTAR 40% w/v 240ML SUSP BTL ONE; +VARIBAR PUDDING 40% w/v 230ML TUBE As Ordered ONE; +VARIBAR PUDDING 40% w/v 230ML TUBE ONE; +VENTAER INH; +VITA100093 PO; +XARE10TA PO; +[UNRECOGNIZED DRUG - CODE] SC; +fentaNYL 100 MCG/2 ML INJECTION As Ordered ONE; +fentaNYL 100 MCG/2 ML INJECTION IV PRN; +fentaNYL 250 MCG/5 ML INJECTION As Ordered ONE; +guaiFENesin SYRUP 200MG 10ML UDC PO PRN; +oxyCODONE 5MG TAB PO PRN; +propofoL 200 MG/20 ML VIAL As Ordered ONE
== END | DRG 710 ==
LOC: EDUNIT# 07-02 16:41 → M ED 07-02 16:49 → EDBD 07-02 16:49 → EEVIPCON 07-02 22:50 → M ED INP 07-02 22:50 → ENRESERV 07-03 13:38 → M MSPAV 07-03 14:39 → M PCU 07-08 19:42 → M MS5PR 07-15 01:44
PROVIDERS: ADMIT Family Medicine; ATTEND Student in an Organized Health Care Education/Training Program
PROC: 0W9J30Z Drainage of Pelvic Cavity with Drainage Device, Percutaneous Approach (ICD-10-PCS; 2021-07-10)
PROC: 02HV33Z Insertion of Infusion Device into Superior Vena Cava, Percutaneous Approach (ICD-10-PCS; 2021-07-10)
PROC: 0KB Muscles, Excision (ICD-10-PCS; principal; 2021-11-12)
PROC: B246ZZZ Ultrasonography of Right and Left Heart (ICD-10-PCS; 2021-11-12)
PROC: 0KB Muscles, Excision (ICD-10-PCS; 2022-06-24)
PROC: 0JCC0ZZ Extirpation of Matter from Pelvic Region Subcutaneous Tissue and Fascia, Open Approach (ICD-10-PCS; 2023-07-05)
PROC: 0QU10JZ Supplement Sacrum with Synthetic Substitute, Open Approach (ICD-10-PCS; 2023-07-05)
PROC: 0D1N4Z4 Bypass Sigmoid Colon to Cutaneous, Percutaneous Endoscopic Approach (ICD-10-PCS; 2023-07-05)
PROC: 30233N1 Transfusion of Nonautologous Red Blood Cells into Peripheral Vein, Percutaneous Approach (ICD-10-PCS; 2023-07-06)
DX: A41.9 Sepsis, unspecified organism (principal); J12.82 Pneumonia due to coronavirus disease 2019; G82.50 Quadriplegia, unspecified; K65.1 Peritoneal abscess; L89.324 Pressure ulcer of left buttock, stage 4; L89.224 Pressure ulcer of left hip, stage 4; J15.69 Pneumonia due to other Gram-negative bacteria; U07.1 COVID-19; K59.2 Neurogenic bowel, not elsewhere classified; E11.69 Type 2 diabetes mellitus with other specified complication; E11.628 Type 2 diabetes mellitus with other skin complications; I11.0 Hypertensive heart disease with heart failure; I50.9 Heart failure, unspecified; I82.611 Acute embolism and thrombosis of superficial veins of right upper extremity; T83.511A Infection and inflammatory reaction due to indwelling urethral catheter, initial encounter; T76.01XA Adult neglect or abandonment, suspected, initial encounter; G35 Multiple sclerosis; N31.9 Neuromuscular dysfunction of bladder, unspecified; R13.10 Dysphagia, unspecified; J98.11 Atelectasis; M86.9 Osteomyelitis, unspecified; M46.28 Osteomyelitis of vertebra, sacral and sacrococcygeal region; E78.5 Hyperlipidemia, unspecified; D50.9 Iron deficiency anemia, unspecified; D47.3 Essential (hemorrhagic) thrombocythemia; M70.62 Trochanteric bursitis, left hip; K59.09 Other constipation; Z66 Do not resuscitate; F41.9 Anxiety disorder, unspecified; F32.A Depression, unspecified; J45.909 Unspecified asthma, uncomplicated; K21.9 Gastro-esophageal reflux disease without esophagitis; E53.8 Deficiency of other specified B group vitamins; Z74.01 Bed confinement status; Z79.82 Long term (current) use of aspirin; Z79.899 Other long term (current) drug therapy; Z88.0 Allergy status to penicillin; Z88.2 Allergy status to sulfonamides; Z86.16 Personal history of COVID-19